=== PATIENT | female | born 1970 | race Two or more races ===

== ENCOUNTER 2016-09-16 17:51 | Emergency (ER) | payer MEDICAID ==
[~2016-09-16] VITALS: Ht 162.6 cm; Wt 112.0 kg
[~2016-09-16 17:51] MED LIST: ALBU18; AZIT250T5; FURO20TA3; GLYB5TAB8; INSLANTI; LISI-646; METO-158; OMEPRAZOLE DR 20 MG CAPSULE; PROMETHAZINE-DM SYRUP
[2016-09-16 19:29] LABS: Basophils # (auto) 0 uL; DEFINITIVE VIEW TRANSMISSION; Eosinophils # (auto) 0.2 uL; Eosinophils % (auto) 2.6 % (0.0-7.0); Hematocrit 36.4 % (36.0-46.0); Hemoglobin 11.8 g/dL (12.2-16.2); Lymphocytes # (auto) 0.5 uL; Lymphocytes % (auto) 9.1 % (10.0-50.0); Mean Corpuscular Hemoglobin 24.6 pg (28.0-32.0); Mean Corpuscular Hgb Conc. 32.5 g/dL (32.0-36.0); Mean Corpuscular Volume 75.5 fL (80.0-100.0); Mean Platelet Volume 8.9 fL (7.4-10.4); Monocytes # (auto) 0.5 uL; Monocytes % (auto) 8.8 % (0.0-12.0); Neutrophils # (auto) 4.7 uL; Neutrophils % (auto) 79.5 % (37.0-80.0); Platelet Count (auto) 272 10^3/uL (140-450); Red Cell Distribution Width 16.3 % (11.6-16.0); White Blood Cell 5.9 10^3/uL (4.4-10.8)
[2016-09-16 19:55] LABS: Albumin 2.5 g/dL (3.4-5.0); BUN/Creatinine Ratio 10.1; Bilirubin, Total 0.4 mg/dL (0.2-1.0); Magnesium 2.1 mg/dL (1.6-2.6); Potassium 3.6 mmol/L (3.5-5.1); Total Protein 6.4 g/dL (6.4-8.2)
[2016-09-17] MEDS ORDERED: SODIUM CHLORIDE 0.9% 1,000 ML IV ONE (04:15)
[2016-09-17] MEDS ORDERED: ONDANSETRON HCL 4 MG/2 ML VIAL IV ONE (04:15)
[2016-09-17] MEDS ORDERED: ONDANSETRON HCL 4 MG/2 ML VIAL ONE (04:35)
[2016-09-17 05:45] VITALS: BP 167/82
[2016-09-17] MEDS ORDERED: LOPERAMIDE HCL 2 MG CAP PO ONE (05:45)
== END 2016-09-17 06:05 | disposition home or self-care (01) ==
LOC: ER 18:05
DX: K52.9 Noninfective gastroenteritis and colitis, unspecified (principal); K21.9 Gastro-esophageal reflux disease without esophagitis; E11.9 Type 2 diabetes mellitus without complications; E78.5 Hyperlipidemia, unspecified; I10 Essential (primary) hypertension; Z91.040 Latex allergy status
CPT/HCPCS: 36415; 80053; 83735; 85025; 96361; 96374; 99284; J2405; J7030

== ENCOUNTER 2017-04-06 09:17 | Emergency (ER) | payer MEDICAID ==
[~2017-04-06] VITALS: Ht 162.6 cm; Wt 74.8 kg
[2017-04-06 09:41] VITALS: BP 145/67
== END 2017-04-06 10:27 | disposition home or self-care (01) ==
LOC: ER 09:17
DX: K13.0 Diseases of lips (principal); R51 Headache; E11.9 Type 2 diabetes mellitus without complications; I10 Essential (primary) hypertension; E78.5 Hyperlipidemia, unspecified; Z87.442 Personal history of urinary calculi; Z98.51 Tubal ligation status; Z90.89 Acquired absence of other organs; Z91.041 Radiographic dye allergy status
CPT/HCPCS: 10060

== ENCOUNTER 2017-04-22 14:18 | Emergency (ER) | payer MEDICAID ==
[~2017-04-22] VITALS: Ht 162.6 cm; Wt 115.7 kg
[2017-04-22 14:31] VITALS: BP 148/82
== END 2017-04-22 15:48 | disposition home or self-care (01) ==
LOC: ER 14:18
DX: S29.012A Strain of muscle and tendon of back wall of thorax, initial encounter (principal); E11.9 Type 2 diabetes mellitus without complications; K21.9 Gastro-esophageal reflux disease without esophagitis; E78.5 Hyperlipidemia, unspecified; I10 Essential (primary) hypertension; Z82.49 Family history of ischemic heart disease and other diseases of the circulatory system; Z87.442 Personal history of urinary calculi; Z79.4 Long term (current) use of insulin; Z91.040 Latex allergy status; X58.XXXA Exposure to other specified factors, initial encounter; Y93.89 Activity, other specified; Y92.59 Other trade areas as the place of occurrence of the external cause; Y99.8 Other external cause status

== ENCOUNTER 2017-11-29 21:49 | Inpatient (IN) | payer MEDICAID ==
[~2017-11-29] VITALS: Ht 162.6 cm; Wt 119.0 kg
[~2017-11-29 21:49] MED LIST changes: -AZIT250T5; +AZIT250T7
[2017-11-29 22:45] LABS: Basophils # (auto) 0 uL; Eosinophils # (auto) 0.1 uL; Hemoglobin 13.8 g/dL (12.2-16.2); Mean Corpuscular Hgb Conc. 32.1 g/dL (32.0-36.0); Monocytes # (auto) 0.5 uL; White Blood Cell 5.6 10^3/uL (4.4-10.8)
[2017-11-29 22:46] LABS: Basophils % (auto) 0.5 % (0.0-2.0); Eosinophils % (auto) 2.4 % (0.0-7.0); Lymphocytes # (auto) 0.7 uL; Lymphocytes % (auto) 13.1 % (10.0-50.0); Mean Corpuscular Hemoglobin 26.7 pg (28.0-32.0); Mean Corpuscular Volume 83.4 fL (80.0-100.0); Monocytes % (auto) 9.1 % (0.0-12.0); Neutrophils # (auto) 4.2 uL; Neutrophils % (auto) 74.9 % (37.0-80.0); Platelet Count (auto) 186 10^3/uL (140-450); Red Blood Cells 5.16 10^6/uL (4.0-5.20); Red Cell Distribution Width 16.8 % (11.8-14.3)
[2017-11-29 23:04] LABS: Albumin 2.8 g/dL (3.4-5.0); BUN/Creatinine Ratio 15.2; Bilirubin, Total 0.3 mg/dL (0.2-1.0); Calcium 8.4 mg/dL (8.5-10.1); Magnesium 2.1 mg/dL (1.6-2.6); Potassium 4.5 mmol/L (3.5-5.1); Total Protein 6.5 g/dL (6.4-8.2)
[2017-11-30] MEDS ORDERED: FUROSEMIDE 40 MG/4 ML VIAL IV ONE (05:30)
[2017-11-30] MEDS ORDERED: cloNIDine HCL 0.1 MG TAB ONE (06:21)
[2017-11-30] MEDS ORDERED: cloNIDine HCL 0.1 MG TAB PO ONE (06:30)
[2017-11-30] MEDS ORDERED: LORazepam 2MG/ML-1ML VIAL IV PRN (06:45)
[2017-11-30] MEDS ORDERED: DEXTROSE (50%) 50ML SYRG IV PRN (06:45)
[2017-11-30] MEDS ORDERED: NITROGLYCERIN 0.4 MG SL TAB SL PRN (06:45)
[2017-11-30] MEDS ORDERED: HYDROcodone-ACET 5/325MG TAB PO PRN (06:45)
[2017-11-30] MEDS ORDERED: MORPHINE SULFATE 8mg/ml INJ SDV IV PRN (06:45)
[2017-11-30] MEDS ORDERED: MEPERIDINE HCL (50 MG/ML) 1 ML VIAL IV ONE (06:45)
[2017-11-30] MEDS ORDERED: LABETALOL HCL 5 MG/ML ML 20ML VIAL IV PRN (06:45)
[2017-11-30] MEDS ORDERED: ACETAMINOPHEN 500 MG TAB PO PRN (06:45)
[2017-11-30] MEDS: ACCU-CHEK COMFORT CURVE STRIP VI SCH ×4 (07:07→22:04)
[2017-11-30] MEDS: InsuLIN REG 1unit/0.01ml Soln (100units/ml) SC SCH ×4 (07:09→22:00)
[2017-11-30 08:36] LABS: Alcohol, Urine < 3.0 mg/dL (0-5); Amphetamine Screen, Urine NEGATIVE (NEGATIVE); Barbiturate Scree,Urine NEGATIVE (NEGATIVE); Benzodiazephine Screen, Urine NEGATIVE (NEGATIVE); Cannabinoid Screen, Urine NEGATIVE (NEGATIVE); Cocaine Screen, Urine NEGATIVE (NEGATIVE); Opiate Scree,Urine NEGATIVE (NEGATIVE); Phencyclidine Screen, Urine NEGATIVE (NEGATIVE)
[2017-11-30 08:43] VITALS: BP 138/87
[2017-11-30 08:51] LABS: Urine Bacteria FEW /hpf (None Seen); Urine Blood 1+ /uL (Negative); Urine Mucus FEW (None Seen); Urine Specific Gravity 1.007 (1.001-1.035); Urine WBC 100 /hpf (0 - 5)
[2017-11-30] MEDS: LISINOPRIL 20 MG TAB PO SCH (10:18)
[2017-11-30] MEDS: hydrALAZINE HCL 25 MG TAB PO SCH ×2 (10:19→21:58)
[2017-11-30] MEDS: ASPirin-EC 81 mg tab PO SCH (10:19)
[2017-11-30] MEDS: CLOPIDOGREL BISULFATE 75 MG TAB PO SCH (10:20)
[2017-11-30] MEDS: CARVEDILOL 3.125 MG TAB PO SCH ×2 (10:22→21:59)
[2017-11-30 10:53] VITALS: BP 138/87
[2017-11-30] MEDS ORDERED: OXYCODONE HCL 5MG TAB PO PRN ×2 (11:00)
[2017-11-30 12:04] LABS: Protein, Urine 193.9 mg/dL (0.0-11.9)
[2017-11-30 12:37] VITALS: BP 126/69
[2017-11-30 17:00] VITALS: BP 144/70
[2017-11-30] MEDS ORDERED: FUROSEMIDE 40 MG/4 ML VIAL IV SCH (18:00)
[2017-11-30] MEDS: FUROSEMIDE 40 MG/4 ML VIAL IV SCH (18:05)
[2017-11-30] MEDS: MEPERIDINE HCL (25 MG/ML) 1ML VIAL IV PRN (20:09)
[2017-11-30 22:17] VITALS: BP 121/68
[2017-12-01] MEDS ORDERED: DIPH25CA66 PO (00:02)
[2017-12-01] MEDS ORDERED: LORA-655 PO (00:02)
[2017-12-01] MEDS ORDERED: INSUINJ18 SC (00:02)
[2017-12-01] MEDS ORDERED: FURO40TA PO (00:02)
[2017-12-01] MEDS ORDERED: CLOP75TA41 PO (00:02)
[2017-12-01] MEDS ORDERED: ALBU1AER4 IN (00:02)
[2017-12-01] MEDS ORDERED: HYDR-4795 PO (00:02)
[2017-12-01] MEDS ORDERED: POTA10TA51 PO (00:02)
[2017-12-01] MEDS ORDERED: METH500T6 PO (00:02)
[2017-12-01] MEDS ORDERED: CARV3.1240 PO (00:02)
[2017-12-01] MEDS ORDERED: GLIP-116 PO (00:02)
[2017-12-01] MEDS ORDERED: TICA90TA PO (00:02)
[2017-12-01] MEDS ORDERED: GABA300C10 PO (00:02)
[2017-12-01] MEDS ORDERED: LEVEMIR SC (00:02)
[2017-12-01] MEDS ORDERED: DOCU-94 PO (00:02)
[2017-12-01] MEDS ORDERED: ONDA4TAB5 PO (00:02)
[2017-12-01] MEDS ORDERED: NITR0.4S29 SL (00:02)
[2017-12-01] MEDS ORDERED: LISI40TA PO (00:02)
[2017-12-01] MEDS ORDERED: ASPI81TA27 PO (00:02)
[2017-12-01] MEDS: MEPERIDINE HCL (25 MG/ML) 1ML VIAL IV PRN ×2 (04:56→12:48)
[2017-12-01 05:00] VITALS: BP 119/58
[2017-12-01] MEDS: ONDANSETRON HCL 4 MG/2 ML VIAL IV PRN (05:48)
[2017-12-01] MEDS: ACCU-CHEK COMFORT CURVE STRIP VI SCH ×4 (06:46→22:23)
[2017-12-01 06:47] LABS: Basophils # (auto) 0 uL; Basophils % (auto) 0.3 % (0.0-2.0); Eosinophils # (auto) 0.2 uL; Lymphocytes # (auto) 0.8 uL; Monocytes # (auto) 0.5 uL; Nucleated Red Blood Cells % 0.1 %; Platelet Count (auto) 197 10^3/uL (140-450); White Blood Cell 6.2 10^3/uL (4.4-10.8)
[2017-12-01] MEDS: InsuLIN REG 1unit/0.01ml Soln (100units/ml) SC SCH ×4 (06:47→22:23)
[2017-12-01 06:50] LABS: Eosinophils % (auto) 3.7 % (0.0-7.0); Hemoglobin 13.6 g/dL (12.2-16.2); Lymphocytes % (auto) 13.5 % (10.0-50.0); Mean Corpuscular Hemoglobin 26.9 pg (28.0-32.0); Mean Corpuscular Hgb Conc. 32.4 g/dL (32.0-36.0); Neutrophils # (auto) 4.6 uL; Neutrophils % (auto) 74.5 % (37.0-80.0); Red Blood Cells 5.06 10^6/uL (4.0-5.20); Red Cell Distribution Width 16.6 % (11.8-14.3)
[2017-12-01] MEDS: FUROSEMIDE 40 MG/4 ML VIAL IV SCH ×2 (06:50→18:00)
[2017-12-01 07:07] LABS: BUN/Creatinine Ratio 17.4; Calcium 8.3 mg/dL (8.5-10.1); Magnesium 2.3 mg/dL (1.6-2.6); Phosphorus 4.3 mg/dL (2.5-4.90); Potassium 3.6 mmol/L (3.5-5.1)
[2017-12-01 08:09] VITALS: BP 131/75
[2017-12-01 08:15] VITALS: BP 119/58
[2017-12-01] MEDS ORDERED: ADENOSINE 104 MG in GIVE UN-DILUTED 0 ML IV STA (08:49)
[2017-12-01] MEDS: cefTRIAXone 1GM/10ml IVPUSH 10 ML IV SCH (10:28)
[2017-12-01] MEDS: ASPirin-EC 81 mg tab PO SCH (10:29)
[2017-12-01] MEDS: LISINOPRIL 20 MG TAB PO SCH (10:29)
[2017-12-01] MEDS: hydrALAZINE HCL 25 MG TAB PO SCH ×2 (10:30→22:21)
[2017-12-01] MEDS: CLOPIDOGREL BISULFATE 75 MG TAB PO SCH (10:30)
[2017-12-01] MEDS: CARVEDILOL 3.125 MG TAB PO SCH ×2 (10:30→22:21)
[2017-12-01 12:39] VITALS: BP 137/76
[2017-12-01 17:20] VITALS: BP 146/93
[2017-12-01 22:00] VITALS: BP 135/77
[2017-12-01] MEDS: POTASSIUM CHL 20 Meq TABLET PO SCH (22:22)
[2017-12-02] MEDS: ONDANSETRON HCL 4 MG/2 ML VIAL IV PRN ×2 (01:00→06:45)
[2017-12-02] MEDS: MEPERIDINE HCL (25 MG/ML) 1ML VIAL IV PRN ×2 (01:00→06:45)
[2017-12-02 05:00] VITALS: BP 144/79
[2017-12-02 05:42] LABS: Basophils # (auto) 0 uL; Basophils % (auto) 0.4 % (0.0-2.0); Eosinophils # (auto) 0.2 uL; Eosinophils % (auto) 3.4 % (0.0-7.0); Hematocrit 40.6 % (36.0-46.0); Hemoglobin 13.2 g/dL (12.2-16.2); Lymphocytes # (auto) 0.6 uL; Lymphocytes % (auto) 13.2 % (10.0-50.0); Mean Corpuscular Hemoglobin 27.1 pg (28.0-32.0); Mean Corpuscular Hgb Conc. 32.6 g/dL (32.0-36.0); Monocytes # (auto) 0.4 uL; Monocytes % (auto) 9.7 % (0.0-12.0); Neutrophils # (auto) 3.3 uL; Neutrophils % (auto) 73.3 % (37.0-80.0); Nucleated Red Blood Cells % 0.1 %; Platelet Count (auto) 181 10^3/uL (140-450); Red Blood Cells 4.89 10^6/uL (4.0-5.20); Red Cell Distribution Width 16.6 % (11.8-14.3); White Blood Cell 4.4 10^3/uL (4.4-10.8)
[2017-12-02 05:56] LABS: BUN/Creatinine Ratio 16.8; Calcium 7.6 mg/dL (8.5-10.1); Potassium 4.1 mmol/L (3.5-5.1)
[2017-12-02] MEDS: ACCU-CHEK COMFORT CURVE STRIP VI SCH ×2 (06:44→12:05)
[2017-12-02] MEDS: InsuLIN REG 1unit/0.01ml Soln (100units/ml) SC SCH ×2 (06:44→12:05)
[2017-12-02] MEDS: FUROSEMIDE 40 MG/4 ML VIAL IV SCH (06:44)
[2017-12-02 08:00] VITALS: BP 137/72
[2017-12-02] MEDS: cefTRIAXone 1GM/10ml IVPUSH 10 ML IV SCH (10:15)
[2017-12-02] MEDS: LISINOPRIL 20 MG TAB PO SCH (10:16)
[2017-12-02] MEDS: CLOPIDOGREL BISULFATE 75 MG TAB PO SCH (10:17)
[2017-12-02] MEDS: ASPirin-EC 81 mg tab PO SCH (10:17)
[2017-12-02] MEDS: CARVEDILOL 3.125 MG TAB PO SCH (10:17)
[2017-12-02] MEDS: hydrALAZINE HCL 25 MG TAB PO SCH (10:17)
[2017-12-02] MEDS: POTASSIUM CHL 20 Meq TABLET PO SCH (10:17)
[2017-12-02 11:05] VITALS: BP 137/72
[2017-12-02 12:00] VITALS: BP 143/83
[2017-12-02] MEDS ORDERED: FUROSEMIDE 40 MG/4 ML VIAL ONE (13:57)
[2017-12-02] MEDS ORDERED: INSULIN LANTUS (GLARGINE) 1 /0.01ml (100units/ml) SC SCH (22:00)
== END 2017-12-02 15:30 | disposition home or self-care (01) | DRG 194 ==
LOC: ER 21:49 → TELE 21:50 → TELE-EAST 11-30 08:43 → EAST 12-01 07:50 → TELE-EAST 12-02 02:13
PROVIDERS: ADMIT Nurse Practitioner Family; ATTEND Internal Medicine
DX: I13.0 Hypertensive heart and chronic kidney disease with heart failure and stage 1 through stage 4 chronic kidney disease, or unspecified chronic kidney disease (principal); N17.0 Acute kidney failure with tubular necrosis; N39.0 Urinary tract infection, site not specified; N18.3 Chronic kidney disease, stage 3 (moderate); N20.0 Calculus of kidney; E11.21 Type 2 diabetes mellitus with diabetic nephropathy; N83.209 Unspecified ovarian cyst, unspecified side; N26.1 Atrophy of kidney (terminal); E11.22 Type 2 diabetes mellitus with diabetic chronic kidney disease; E44.1 Mild protein-calorie malnutrition; I50.43 Acute on chronic combined systolic (congestive) and diastolic (congestive) heart failure; I25.10 Atherosclerotic heart disease of native coronary artery without angina pectoris; I42.9 Cardiomyopathy, unspecified; K21.9 Gastro-esophageal reflux disease without esophagitis; E78.5 Hyperlipidemia, unspecified; E66.01 Morbid (severe) obesity due to excess calories; E87.1 Hypo-osmolality and hyponatremia; I25.2 Old myocardial infarction; Z79.4 Long term (current) use of insulin; Z82.3 Family history of stroke; Z82.49 Family history of ischemic heart disease and other diseases of the circulatory system; Z86.73 Personal history of transient ischemic attack (TIA), and cerebral infarction without residual deficits; Z95.0 Presence of cardiac pacemaker; Z87.442 Personal history of urinary calculi; Z83.3 Family history of diabetes mellitus; Z79.899 Other long term (current) drug therapy; Z91.040 Latex allergy status; Z98.51 Tubal ligation status
CPT/HCPCS: 36415; 71045; 74176; 76856; 78707; 80048; 80053; 80307; 81001; 82150; 82570; 82962; 83036; 83690; 83735; 83880; 84100; 84156; 84300; 84484; 85025; 87081; 87086; 93005; 93306; 96374; 96375; J0153; J1815; J2405

== ENCOUNTER 2018-03-31 10:16 | Emergency (ER) | payer MEDICAID ==
[~2018-03-31] VITALS: Ht 162.6 cm; Wt 120.2 kg
[~2018-03-31 10:16] MED LIST changes: -ALBU18; +ALBU1AER4 IN; +ASPI81TA27 PO; -AZIT250T7; +CLOP75TA41 PO; +DIPH25CA66 PO; +DOCU-94 PO; -FURO20TA3; +GABA300C10 PO; +GLIP-116 PO; -GLYB5TAB8; +HYDR-4795 PO; -INSLANTI; +INSUINJ18 SC; +LEVEMIR SC; -LISI-646; +LISI40TA PO; +LORA-655 PO; +METH500T6 PO; -METO-158; +NITR0.4S29 SL; -OMEPRAZOLE DR 20 MG CAPSULE; +ONDA4TAB5 PO; +POTA10TA51 PO; -PROMETHAZINE-DM SYRUP
[2018-03-31 10:21] VITALS: BP 146/84
[2018-03-31] MEDS ORDERED: KETOROLAC TROMETH 60MG/2ML VIAL IM ONE (10:45)
== END 2018-03-31 11:33 | disposition home or self-care (01) ==
LOC: ER 10:17
DX: R51 Headache (principal); I11.0 Hypertensive heart disease with heart failure; I50.9 Heart failure, unspecified; I25.2 Old myocardial infarction; E11.9 Type 2 diabetes mellitus without complications; K21.9 Gastro-esophageal reflux disease without esophagitis; Z98.51 Tubal ligation status
CPT/HCPCS: 70450; 96372; 99284; J1885

== ENCOUNTER 2018-09-07 17:45 | Emergency (ER) | payer MEDICAID ==
[~2018-09-07] VITALS: Ht 162.6 cm; Wt 113.9 kg
[2018-09-07 18:47] VITALS: BP 169/97
== END 2018-09-07 20:35 | disposition home or self-care (01) ==
LOC: ER 18:02
DX: S43.402A Unspecified sprain of left shoulder joint, initial encounter (principal); I11.0 Hypertensive heart disease with heart failure; I50.9 Heart failure, unspecified; E11.9 Type 2 diabetes mellitus without complications; K21.9 Gastro-esophageal reflux disease without esophagitis; E78.5 Hyperlipidemia, unspecified; I25.2 Old myocardial infarction; Z87.442 Personal history of urinary calculi; Z98.51 Tubal ligation status; Z91.040 Latex allergy status; Z79.4 Long term (current) use of insulin; Z79.82 Long term (current) use of aspirin; X50.9XXA Other and unspecified overexertion or strenuous movements or postures, initial encounter; Y93.89 Activity, other specified; Y92.89 Other specified places as the place of occurrence of the external cause; Y99.8 Other external cause status
CPT/HCPCS: 29105; 73030

== ENCOUNTER 2019-09-09 22:11 | Emergency (ER) | payer MEDICAID ==
[~2019-09-09] VITALS: Ht 162.6 cm; Wt 120.2 kg
[~2019-09-09 22:11] MED LIST changes: +ASPI-404 PO; -ASPI81TA27 PO; +DOXY-286 PO; +FURO40TA4 PO; -GLIP-116 PO; +GLIP10TA9 PO; +METH500T22 PO; -METH500T6 PO; +ONDA-144 PO; -ONDA4TAB5 PO
[2019-09-09 22:23] VITALS: BP 169/99
[2019-09-10] MEDS ORDERED: HYDROcodone-ACET 5/325MG TAB PO ONE (00:45)
== END 2019-09-10 02:05 | disposition home or self-care (01) ==
LOC: ER 22:12
DX: S06.0X1A Concussion with loss of consciousness of 30 minutes or less, initial encounter (principal); S70.02XA Contusion of left hip, initial encounter; S80.02XA Contusion of left knee, initial encounter; S90.02XA Contusion of left ankle, initial encounter; I11.0 Hypertensive heart disease with heart failure; I50.9 Heart failure, unspecified; J44.9 Chronic obstructive pulmonary disease, unspecified; E11.9 Type 2 diabetes mellitus without complications; E78.5 Hyperlipidemia, unspecified; I25.2 Old myocardial infarction; X58.XXXA Exposure to other specified factors, initial encounter; Y93.89 Activity, other specified; Y92.89 Other specified places as the place of occurrence of the external cause; Y99.8 Other external cause status
CPT/HCPCS: 70450; 73502; 73562; 73610

== ENCOUNTER 2019-10-24 02:07 | Emergency (ER) | payer MEDICAID ==
[~2019-10-24] VITALS: Ht 162.6 cm; Wt 120.2 kg
[2019-10-24 03:17] LABS: Basophils # (auto) 0 10 ^3/uL (0-0.2); Basophils % (auto) 0.4 % (0.0-2.0); Eosinophils # (auto) 0.3 10 ^3/uL (0-0.8); Eosinophils % (auto) 5.9 % (0.0-7.0); Hematocrit 43.9 % (36.0-46.0); Hemoglobin 14.2 g/dL (12.2-16.2); Lymphocytes # (auto) 0.5 10 ^3/uL (0.4-5.4); Lymphocytes % (auto) 9.5 % (10.0-50.0); Mean Corpuscular Hemoglobin 28.4 pg (28.0-32.0); Mean Corpuscular Hgb Conc. 32.3 g/dL (32.0-36.0); Mean Corpuscular Volume 87.9 fL (80.0-100.0); Monocytes # (auto) 0.5 10 ^3/uL (0-1.3); Monocytes % (auto) 8.5 % (0.0-12.0); Neutrophils # (auto) 4.2 10 ^3/uL (1.6-8.6); Neutrophils % (auto) 75.7 % (37.0-80.0); Nucleated Red Blood Cells % 0.1 %; Platelet Count (auto) 186 10^3/uL (140-450); Red Blood Cells 4.99 10^6/uL (4.0-5.20); Red Cell Distribution Width 15.1 % (11.8-14.3); White Blood Cell 5.6 10^3/uL (4.4-10.8)
[2019-10-24 03:30] LABS: INR 0.96 (0.9-1.15); Partial Thromboplastin Time 28.2 sec (23.64-32.05)
[2019-10-24 03:32] LABS: Albumin 3.5 g/dL (3.4-5.0); Calcium 8.4 mg/dL (8.5-10.1); Magnesium 2.5 mg/dL (1.6-2.6); Potassium 4.1 mmol/L (3.5-5.1)
[2019-10-24 03:41] LABS: BUN/Creatinine Ratio 20.5; Bilirubin, Total 0.4 mg/dL (0.2-1.0); Total Protein 7.9 g/dL (6.4-8.2)
[2019-10-24] MEDS ORDERED: InsuLIN REG 1unit/0.01ml Soln (100units/ml) ONE (05:06)
[2019-10-24] MEDS ORDERED: SODIUM CHLORIDE 0.9% 1,000 ML IV SCH (05:11)
[2019-10-24] MEDS ORDERED: NITROGLYCERIN 0.4 MG SL TAB SL PRN (05:15)
[2019-10-24] MEDS ORDERED: HYDROcodone-ACET 5/325MG TAB PO PRN (05:15)
[2019-10-24] MEDS ORDERED: DOCUSATE SOD 100 MG CAP PO PRN (05:15)
[2019-10-24] MEDS ORDERED: HYDROcodone-ACET 7.5/325MG TAB PO PRN (05:15)
[2019-10-24] MEDS ORDERED: ONDANSETRON HCL 4 MG/2 ML VIAL IV PRN (05:15)
[2019-10-24] MEDS ORDERED: IPRATROPIUM BROM 0.5 MG/2.5ML INH SOL NEB PRN (05:15)
[2019-10-24] MEDS ORDERED: ALBUTEROL SULF 2.5 MG/0.5ML(0.5%) NEB SOLN NEB PRN (05:15)
[2019-10-24] MEDS ORDERED: ONDANSETRON ODT 4 MG TAB PO PRN (05:15)
[2019-10-24] MEDS ORDERED: ACETAMINOPHEN 325 MG TAB PO PRN (05:15)
[2019-10-24] MEDS ORDERED: MORPHINE SULFATE 4 MG/ML SYR/VIAL IV PRN (05:15)
[2019-10-24 05:58] VITALS: BP 173/89
[2019-10-24] MEDS ORDERED: POTASSIUM CHLORIDE 8 MEQ TAB PO SCH (06:00)
[2019-10-24] MEDS ORDERED: GABAPENTIN 300 MG CAP PO SCH (06:00)
[2019-10-24] MEDS ORDERED: InsuLIN REG 1unit/0.01ml Soln (100units/ml) IV ONE (06:00)
[2019-10-24 06:03] VITALS: BP 146/83
[2019-10-24] MEDS ORDERED: FUROSEMIDE 40 MG/4 ML VIAL IV SCH (10:00)
[2019-10-24] MEDS ORDERED: ASPirin-EC 81 mg tab PO SCH (10:00)
[2019-10-24] MEDS ORDERED: CLOPIDOGREL BISULFATE 75 MG TAB PO SCH (10:00)
[2019-10-24] MEDS ORDERED: PANTOPRAZOLE 40 MG/10 ML VIAL INJ IV SCH (10:00)
[2019-10-24] MEDS ORDERED: DOCUSATE SOD 100 MG CAP PO SCH (10:00)
[2019-10-24] MEDS ORDERED: LISINOPRIL 20 MG TAB PO SCH (10:00)
[2019-10-24] MEDS ORDERED: methylPREDNISolone SOD SUCC 125 MG/2 ML VL IV SCH (10:00)
[2019-10-24] MEDS ORDERED: METHOCARBAMOL 500 MG TAB PO SCH (10:00)
[2019-10-24] MEDS ORDERED: ATORVASTATIN 20 MG TAB PO SCH (18:00)
[2019-10-24] MEDS ORDERED: INSULIN DETEMIR 20 UNIT SC SCH (22:00)
[2019-10-24] MEDS ORDERED: LORazepam 0.5 MG TAB PO SCH (22:00)
== END 2019-10-24 06:22 | disposition left against medical advice (07) ==
LOC: ER 02:08
DX: R07.89 Other chest pain (principal); E11.65 Type 2 diabetes mellitus with hyperglycemia; E87.1 Hypo-osmolality and hyponatremia; R79.89 Other specified abnormal findings of blood chemistry; I11.0 Hypertensive heart disease with heart failure; I50.9 Heart failure, unspecified; J44.9 Chronic obstructive pulmonary disease, unspecified; K21.9 Gastro-esophageal reflux disease without esophagitis; E78.5 Hyperlipidemia, unspecified; I25.2 Old myocardial infarction; Z95.0 Presence of cardiac pacemaker; Z79.82 Long term (current) use of aspirin; Z79.01 Long term (current) use of anticoagulants; Z79.4 Long term (current) use of insulin; Z79.2 Long term (current) use of antibiotics; Z79.899 Other long term (current) drug therapy; Z91.040 Latex allergy status
CPT/HCPCS: 36415; 71045; 80053; 82010; 82962; 83735; 84484; 85025; 85610; 85730; 93005; 96374; 99285; J1815; J7030

== ENCOUNTER 2019-12-15 21:31 | Emergency (ER) | payer MEDICAID ==
[~2019-12-15] VITALS: Ht 162.6 cm; Wt 117.9 kg
[2019-12-15 22:30] VITALS: BP 162/78
[2019-12-16] MEDS ORDERED: HYDROcodone-ACET 5/325MG TAB PO ONE (00:45)
== END 2019-12-16 02:23 | disposition home or self-care (01) ==
LOC: ER 21:31
DX: S86.911A Strain of unspecified muscle(s) and tendon(s) at lower leg level, right leg, initial encounter (principal); S86.912A Strain of unspecified muscle(s) and tendon(s) at lower leg level, left leg, initial encounter; E11.40 Type 2 diabetes mellitus with diabetic neuropathy, unspecified; I11.0 Hypertensive heart disease with heart failure; I50.9 Heart failure, unspecified; J44.9 Chronic obstructive pulmonary disease, unspecified; K21.9 Gastro-esophageal reflux disease without esophagitis; E78.5 Hyperlipidemia, unspecified; I25.2 Old myocardial infarction; Z91.040 Latex allergy status; W19.XXXA Unspecified fall, initial encounter; Y93.89 Activity, other specified; Y92.89 Other specified places as the place of occurrence of the external cause; Y99.8 Other external cause status
CPT/HCPCS: 73120; 73562

== ENCOUNTER 2020-04-29 05:04 | Inpatient (IN) | payer MEDICAID ==
[~2020-04-29] VITALS: Ht 162.6 cm; Wt 133.0 kg
[~2020-04-29 05:04] MED LIST changes: -ASPI-404 PO; +ASPI-543 PO; -LISI40TA PO; +LISI40TA11 PO
[2020-04-29 07:10] LABS: Basophils # (auto) 0 10 ^3/uL (0-0.2); Basophils % (auto) 0.4 % (0.0-2.0); Eosinophils # (auto) 0 10 ^3/uL (0-0.8); Eosinophils % (auto) 0.2 % (0.0-7.0); Hematocrit 37.6 % (36.0-46.0); Lymphocytes # (auto) 0.4 10 ^3/uL (0.4-5.4); Lymphocytes % (auto) 5.1 % (10.0-50.0); Mean Corpuscular Hgb Conc. 31.8 g/dL (32.0-36.0); Mean Corpuscular Volume 88.1 fL (80.0-100.0); Monocytes # (auto) 0.3 10 ^3/uL (0-1.3); Monocytes % (auto) 3.1 % (0.0-12.0); Neutrophils # (auto) 7.8 10 ^3/uL (1.6-8.6); Neutrophils % (auto) 91.2 % (37.0-80.0); Nucleated Red Blood Cells % 0.2 %; Platelet Count (auto) 242 10^3/uL (140-450); Red Blood Cells 4.27 10^6/uL (4.0-5.20); Red Cell Distribution Width 18.1 % (11.8-14.3); White Blood Cell 8.6 10^3/uL (4.4-10.8)
[2020-04-29] MEDS ORDERED: SODIUM CHLORIDE 0.9% 1,000 ML IV ONE (07:15)
[2020-04-29] MEDS ORDERED: InsuLIN REG 1unit/0.01ml Soln (100units/ml) IV ONE (07:15)
[2020-04-29 07:39] LABS: BUN/Creatinine Ratio 26.4; Magnesium 2.6 mg/dL (1.6-2.6); Potassium 3.8 mmol/L (3.5-5.1)
[2020-04-29 07:45] LABS: Bilirubin, Total 1.6 mg/dL (0.2-1.0); Total Protein 6.8 g/dL (6.4-8.2)
[2020-04-29] MEDS ORDERED: ONDANSETRON HCL 4 MG/2 ML VIAL IV ONE (09:00)
[2020-04-29] MEDS ORDERED: MORPHINE SULFATE 4 MG/ML SYR/VIAL IV ONE (09:00)
[2020-04-29 14:22] LABS: Urine Bacteria MANY /hpf (None Seen); Urine Blood Negative /uL (Negative); Urine Mucus FEW (None Seen); Urine Specific Gravity 1.013 (1.001-1.035); Urine WBC 23 /hpf (0 - 5); Urine WBC Clumps PRESENT /hpf (None Seen)
[2020-04-29] MEDS ORDERED: DEXTROSE (50%) 50ML SYRG IV PRN (15:00)
[2020-04-29] MEDS: cefTRIAXone 1GM/50ML D5W 50 ML IV SCH ×2 (15:50→22:37)
[2020-04-29 16:30] LABS: BUN/Creatinine Ratio 27.8; Calcium 8.9 mg/dL (8.5-10.1); Potassium 3.8 mmol/L (3.5-5.1)
[2020-04-29] MEDS ORDERED: METOCLOPRAMIDE HCL 5MG/ml INJ 2ml VIAL IV ONE (17:00)
[2020-04-29 17:39] VITALS: BP 151/67
--- NOTE | 2020-04-29 17:40 | NUR ---
Telemetry admit from ER: INNALILIANA I admitted to Telemetry unit after SBAR received. Patient oriented to ANURAG MAYFIELD, RN primary RN, unit, room, bed, and unit policies regarding patient care and visiting hours. Patient now on continuous telemetry monitoring, tele box # 79 and telemetry reading on arrival to unit is HR 78. Patient placed on bedside oxygen 3 LPM, weighed by bedscale and encouraged to call if they need something. All questions and concerns addressed, patient verbalized understanding.
[2020-04-29] MEDS: ACCU-CHEK COMFORT CURVE STRIP VI SCH ×2 (17:57→22:37)
[2020-04-29] MEDS: FUROSEMIDE 40 MG/4 ML VIAL IV SCH (17:58)
--- NOTE | 2020-04-29 18:10 | NUR ---
[facility]SA SWAB COLLECTED AND SENT
[2020-04-29] MEDS: InsuLIN REG 1unit/0.01ml Soln (100units/ml) SC SCH ×2 (18:22→22:38)
--- NOTE | 2020-04-29 18:23 | NUR ---
PAGED HOSPITALIST AT THIS TIME. PATIENT STATES PAIN "ABOVE 10/10." AWAITING CALL BACK.
--- NOTE | 2020-04-29 18:25 | NUR ---
SPOKE WITH DR. TURNER. PER "CALL DR. CARVALHO." CALLED DR. CARVALHO EXCHANGE AT THIS TIME.
--- NOTE | 2020-04-29 18:29 | NUR ---
RECEIVED CALL FROM DR. Padmini CARVALHO AT THIS TIME. NEW ORDERS RECEIVED, READ BACK AND VERIFIED.
[2020-04-29] MEDS ORDERED: HYDROcodone-ACET 5/325MG TAB PO PRN (18:30)
[2020-04-29] MEDS: HYDROmorphone HCL 2 MG/ML VL IV PRN ×2 (18:49→22:37)
--- NOTE | 2020-04-29 18:50 | NUR ---
CLOSING NOTE: PATIENT SITTING ON EDGE OF BED, STATES PAIN "10, Addendum: 04/29/20 at 1850 by ANRUAG MAYFIELD RN RN "03/31". MEDICATION GIVEN
--- NOTE | 2020-04-29 19:40 | NUR ---
Opening Shift Note Assumed care of patient, awake and alert. No S/S of distress/SOB or pain. Updated on POC and to call for assist PRN, patient verbalized understanding. Bed in lowest position, call light within reach, will continue to monitor for changes Q1hr and PRN.
[2020-04-29 20:00] VITALS: BP 132/99
[2020-04-29 22:00] VITALS: BP 132/99
[2020-04-29] MEDS: PANTOPRAZOLE 40 MG/10 ML VIAL INJ IV SCH (22:36)
[2020-04-30 05:00] VITALS: BP 142/82
[2020-04-30] MEDS: FUROSEMIDE 40 MG/4 ML VIAL IV SCH ×2 (06:19→17:39)
[2020-04-30] MEDS: InsuLIN REG 1unit/0.01ml Soln (100units/ml) SC SCH ×4 (06:20→22:59)
[2020-04-30] MEDS: ACCU-CHEK COMFORT CURVE STRIP VI SCH ×4 (06:20→22:58)
[2020-04-30 06:58] LABS: Calcium 8.8 mg/dL (8.5-10.1); Potassium 3.5 mmol/L (3.5-5.1)
[2020-04-30 07:00] LABS: BUN/Creatinine Ratio 27.5
--- NOTE | 2020-04-30 07:15 | NUR ---
Opening Shift Note: Assumed care of patient, awake and alert. No S/S of distress/SOB or pain. Bed in lowest locked position, side rails up x 2, call light within reach. Patient instructed on POC and to call for assist PRN, will continue to monitor for changes Q1hr and PRN.
[2020-04-30 09:24] VITALS: BP 146/83
[2020-04-30] MEDS: cefTRIAXone 1GM/50ML D5W 50 ML IV SCH ×2 (10:23→22:58)
[2020-04-30] MEDS: PANTOPRAZOLE 40 MG/10 ML VIAL INJ IV SCH ×2 (10:23→22:58)
[2020-04-30] MEDS: HYDROmorphone HCL 2 MG/ML VL IV PRN ×3 (12:06→22:59)
[2020-04-30 13:01] VITALS: BP 155/99
[2020-04-30 16:49] VITALS: BP 155/83
--- NOTE | 2020-04-30 19:14 | NUR ---
CLOSING NOTE: Patient resting in bed. no S/S of distress. care endorsed.
[2020-04-30 22:00] VITALS: BP 148/83
--- NOTE | 2020-05-01 00:15 | NUR ---
Patient complained of vomiting, noted no PRN med at this time. Will page hospitalist
--- NOTE | 2020-05-01 00:30 | NUR ---
Spoke to hospitalist King and updated on patient's status and reason for call. Received new order at this time and read back
[2020-05-01] MEDS: ONDANSETRON HCL 4 MG/2 ML VIAL IV PRN ×4 (01:18→22:09)
--- NOTE | 2020-05-01 01:45 | NUR ---
Dr. Ortega Aaron at bedside. New orders received
[2020-05-01 05:25] VITALS: BP 164/94
[2020-05-01] MEDS: InsuLIN REG 1unit/0.01ml Soln (100units/ml) SC SCH ×4 (06:14→22:00)
[2020-05-01] MEDS: ACCU-CHEK COMFORT CURVE STRIP VI SCH ×4 (06:14→22:00)
[2020-05-01] MEDS: HYDROmorphone HCL 2 MG/ML VL IV PRN ×5 (06:14→23:38)
[2020-05-01 07:52] LABS: Potassium 3.5 mmol/L (3.5-5.1)
[2020-05-01 08:00] LABS: Albumin 3.5 g/dL (3.4-5.0); BUN/Creatinine Ratio 23.4; Bilirubin, Total 0.9 mg/dL (0.2-1.0); Calcium 8.9 mg/dL (8.5-10.1); Total Protein 6.1 g/dL (6.4-8.2)
--- NOTE | 2020-05-01 08:15 | NUR ---
Patient off unit for HIDA scan
[2020-05-01 08:19] LABS: INR 1.33 (0.9-1.15); Partial Thromboplastin Time 26.1 sec (23.0-31.2)
--- NOTE | 2020-05-01 08:46 | NUR ---
Patient back in room, c/o nausea and abdominal pain 12/29. Will medicate with PRN as per order.
[2020-05-01] MEDS: PANTOPRAZOLE 40 MG/10 ML VIAL INJ IV SCH ×2 (09:13→22:22)
[2020-05-01] MEDS: cefTRIAXone 1GM/50ML D5W 50 ML IV SCH ×2 (09:13→22:22)
--- NOTE | 2020-05-01 09:24 | NUR ---
[employer] Call to [employer] at to have cardiac device interrogated, per entry level account representative Vanessa, all information needed obtained and entry level account representative will be in for interrogation before noon today.
[2020-05-01 09:40] VITALS: BP 145/113
--- NOTE | 2020-05-01 11:04 | NUR ---
Per NUCLEAR MED patient refused to finish HIDA scan at 0830, patient has since then been medicated and will check with patient if okay to finish scan now.
--- NOTE | 2020-05-01 11:08 | NUR ---
Patient continues to refuse to finish HIDA scan, states " I'm starting to feel sick again and I wanna rest." NUC MED notified
--- NOTE | 2020-05-01 12:32 | NUR ---
[employer] REP AT BED SIDE INTERROGATION STATUS IN HARD CHART
[2020-05-01 13:29] VITALS: BP 153/90
--- NOTE | 2020-05-01 14:42 | NUR ---
Patient off unit to finish HIDA scan
[2020-05-01 16:32] VITALS: BP 122/96
--- NOTE | 2020-05-01 19:30 | NUR ---
Opening Shift Note Assumed care of patient, sleeping. No S/S of distress/SOB or pain. RN will continue to monitor for changes Q1hr and PRN. Bed low with HOB in Pereyra's position. Nurse call light up behind pillow.
[2020-05-01 22:00] VITALS: BP 157/91
--- NOTE | 2020-05-01 23:10 | NUR ---
Pt called RN into room to report PIV leaking; entire abx infused prev. Saline lock dc'd in entirety and pressure dressing in place. Pt yudith well.
--- NOTE | 2020-05-01 23:54 | NUR ---
After this RN reassessed zofran and dilaudid, pt stated that the nausea "I think is trying to creep up again." Discussed deep slow breathing to control nausea. Pt voiced understanding. Now as RN entered room, pt grunting and taking large, but not slow controlled, breaths. RN informed pt that her anti-nausea is every 6 hours and she needs to use the controlled breathing. Pt immediately stopped groaning/grunting.
--- NOTE | 2020-05-02 01:20 | NUR ---
Rebeka, RN, CN, restarted pt's saline lock on first attempt after this RN attempted twice without success. Pt yudith well. Saline lock 22g. to L ant forearm.
[2020-05-02 05:00] VITALS: BP 146/69
[2020-05-02 06:33] LABS: Potassium 3.1 mmol/L (3.5-5.1)
[2020-05-02 06:43] LABS: Calcium 8.9 mg/dL (8.5-10.1)
[2020-05-02] MEDS: ACCU-CHEK COMFORT CURVE STRIP VI SCH ×4 (07:10→22:00)
[2020-05-02] MEDS: InsuLIN REG 1unit/0.01ml Soln (100units/ml) SC SCH ×4 (07:12→22:00)
--- NOTE | 2020-05-02 07:30 | NUR ---
Opening Shift Note Assumed care of patient, awake and alert. No S/S of distress/SOB but complains of pain 03/31, stated shes been calling since 6am with no relief, will medicate as ordered. Instructed on POC and to call for assist PRN, will continue to monitor for changes Q1hr and PRN. Bed in low and locked position, rails up x2, no-slip socks on. Patient stating she wishes to leave this hospital and go to [facility] ([facility] instead, that she has been waiting too long to be treated and is frustrated. listen attentively and provided comfort measures, will notify .
[2020-05-02] MEDS: ONDANSETRON HCL 4 MG/2 ML VIAL IV PRN ×4 (08:06→23:16)
[2020-05-02] MEDS: HYDROmorphone HCL 2 MG/ML VL IV PRN ×6 (08:12→23:17)
[2020-05-02 09:00] VITALS: BP 153/65
--- NOTE | 2020-05-02 09:00 | NUR ---
MRCP CANCELLED UNABLE TO PERFORM FOR THIS PATIENT DUE TO PACEMAKER
--- NOTE | 2020-05-02 09:25 | NUR ---
DR BEEBE AT BEDSIDE WILL NOT PROCEED WITH SUGERY AT THIS TIME, PATIENT HAS A NEGATIVE HIDA AND EXTENSIVE CARDIAC HISTORY
[2020-05-02] MEDS: PANTOPRAZOLE 40 MG/10 ML VIAL INJ IV SCH ×2 (11:03→22:00)
--- NOTE | 2020-05-02 11:27 | NUR ---
PAGE TO Padmini CARVALHO TO NOTIFY ON CANCELLED MRCP AND DR BEEBE ROUNDING AND NO SURGERY. NO NEW ORDERS AT THIS TIME.
[2020-05-02 13:00] VITALS: BP 144/89
--- NOTE | 2020-05-02 16:56 | NUR ---
Assessment Patient is a 50-year-old female, who is alert and oriented. Patient cognitive abilities are intact. Patient states that she can do all ADLs and ambulates independently with assistance. Patient has history with diabetes. Patient states that she lives with mother (Amena [phone]), her mother will provide transportation post discharge. Patient states that she has an Advance Directive, she will provide a copy to [facility]. Discharge planning: Patient has diabetic supplies and will resume diabetic care at home. Patient will return home. Post discharge needs are yet to be determine at this moment. Addendum: 05/02/20 at 1657 by HITESH MEIER Amended: Links added.
[2020-05-02 17:00] VITALS: BP 155/89
--- NOTE | 2020-05-02 19:30 | NUR ---
Opening Shift Note Assumed care of patient, sleeping soundly. No S/S of distress/SOB or pain. RN will continue to monitor for changes Q1hr and PRN. Pt's bed in low position. Nurse call light is within her reach.
[2020-05-02 22:00] VITALS: BP 157/89
[2020-05-03] MEDS: ONDANSETRON HCL 4 MG/2 ML VIAL IV PRN ×2 (03:24→10:52)
[2020-05-03] MEDS: HYDROmorphone HCL 2 MG/ML VL IV PRN ×3 (03:24→10:52)
[2020-05-03 05:00] VITALS: BP 112/55
[2020-05-03 05:54] LABS: Basophils # (auto) 0 10 ^3/uL (0-0.2); Basophils % (auto) 0.7 % (0.0-2.0); Eosinophils # (auto) 0.1 10 ^3/uL (0-0.8); Eosinophils % (auto) 1.7 % (0.0-7.0); Hematocrit 36.6 % (36.0-46.0); Hemoglobin 11.6 g/dL (12.2-16.2); Lymphocytes # (auto) 0.7 10 ^3/uL (0.4-5.4); Lymphocytes % (auto) 11.3 % (10.0-50.0); Mean Corpuscular Hgb Conc. 31.8 g/dL (32.0-36.0); Monocytes # (auto) 0.5 10 ^3/uL (0-1.3); Monocytes % (auto) 9.1 % (0.0-12.0); Neutrophils # (auto) 4.5 10 ^3/uL (1.6-8.6); Neutrophils % (auto) 77.2 % (37.0-80.0); Nucleated Red Blood Cells % 0.1 %; Platelet Count (auto) 201 10^3/uL (140-450); Red Blood Cells 4.16 10^6/uL (4.0-5.20); Red Cell Distribution Width 18.2 % (11.8-14.3); White Blood Cell 5.8 10^3/uL (4.4-10.8)
[2020-05-03 06:16] LABS: Potassium 3.1 mmol/L (3.5-5.1)
[2020-05-03 06:35] LABS: Albumin 3.2 g/dL (3.4-5.0); BUN/Creatinine Ratio 18.2; Bilirubin, Total 1.1 mg/dL (0.2-1.0); Calcium 8.6 mg/dL (8.5-10.1); Total Protein 5.7 g/dL (6.4-8.2)
[2020-05-03] MEDS: ACCU-CHEK COMFORT CURVE STRIP VI SCH ×2 (06:35→11:30)
[2020-05-03] MEDS: InsuLIN REG 1unit/0.01ml Soln (100units/ml) SC SCH ×2 (06:36→12:07)
--- NOTE | 2020-05-03 07:30 | NUR ---
Opening Shift Note Assumed care of patient, asleep. No S/S of distress/SOB or pain. Patient will be monitored for changes Q1hr and PRN. Bed is locked and in lowest position. Call light within reach.
[2020-05-03 08:48] VITALS: BP 130/57
[2020-05-03] MEDS: PANTOPRAZOLE 40 MG/10 ML VIAL INJ IV SCH (09:21)
--- NOTE | 2020-05-03 12:11 | NUR ---
Nutrition Assessment Est energy needs [id number] kcal (11-14 kcal/kg BW 133kg) Est protein needs 55-71g (1-1.3g/kg BW 55kg) Will monitor and reassess prn. Addendum: 05/03/20 at [address] Amended: Links added.
--- NOTE | 2020-05-03 12:50 | NUR ---
AMA PATIENT STATED SHE WOULD LIKE TO SIGN AMA DUE TO DR. CARVALHO WAITING FOR HER AT [facility]. PATIENT STATED DR. CARVALHO TOLD HER TO GO TO [facility] AND HE WILL SEE HER SOON SHE GETS THERE. PATIENT EXPLAINED THE RISK OF LEAVING AMA, PATIENT VERBALIZED UNDERSTANDING. PATIENT IS AOX4, DENIES SOB OR CHEST PAIN, IS C/O ABDOMINAL PAIN. PATIENT WILL AWAIT JAVA SDET FROM MOTHER. TELEMONITOR REMOVED AND SENT TO ICU HEART LAB. IV removal IV DC'd with clean sterile technique, catheter fully intact. Pressure dressing applied to site. Patient tolerated well.
--- NOTE | 2020-05-03 13:08 | NUR ---
PT REFUSED 1300 VITALSRAMO RN MADE AWARE.
--- NOTE | 2020-05-03 13:45 | NUR ---
PATIENT LEFT AMA AND WAS PICKED UP BY MOTHER. INCIDENT REPORT MADE FOR AMA.
== END 2020-05-03 13:45 | disposition left against medical advice (07) | DRG 251 ==
LOC: ER 05:04 → TELE 14:55 → TELE-WESTW 17:38
PROVIDERS: ADMIT Psychiatry & Neurology Neurology; ATTEND Psychiatry & Neurology Neurology
DX: R10.9 Unspecified abdominal pain (principal); E10.10 Type 1 diabetes mellitus with ketoacidosis without coma; N17.9 Acute kidney failure, unspecified; K80.10 Calculus of gallbladder with chronic cholecystitis without obstruction; K72.90 Hepatic failure, unspecified without coma; J44.9 Chronic obstructive pulmonary disease, unspecified; E78.5 Hyperlipidemia, unspecified; I11.0 Hypertensive heart disease with heart failure; I25.10 Atherosclerotic heart disease of native coronary artery without angina pectoris; I50.9 Heart failure, unspecified; I31.3 Pericardial effusion (noninflammatory); D64.9 Anemia, unspecified; I42.0 Dilated cardiomyopathy; E66.01 Morbid (severe) obesity due to excess calories; N39.0 Urinary tract infection, site not specified; K21.9 Gastro-esophageal reflux disease without esophagitis; Z68.43 Body mass index [BMI] 50.0-59.9, adult; Z91.040 Latex allergy status; I25.2 Old myocardial infarction; Z79.02 Long term (current) use of antithrombotics/antiplatelets; Z79.4 Long term (current) use of insulin; Z79.899 Other long term (current) drug therapy; Z82.49 Family history of ischemic heart disease and other diseases of the circulatory system; Z83.3 Family history of diabetes mellitus; Z87.442 Personal history of urinary calculi
CPT/HCPCS: 36415; 71045; 74176; 76700; 78226; 80048; 80053; 81001; 82010; 82150; 82962; 83690; 83735; 84484; 85025; 85610; 85730; 86850; 86900; 86901; 87081; 87086; 93306; C9113; G0378; J0696; J1815; J2405

== ENCOUNTER 2020-09-27 10:58 | Emergency (ER) | payer MEDICAID ==
[~2020-09-27] VITALS: Ht 162.6 cm; Wt 116.1 kg
[~2020-09-27 10:58] MED LIST changes: -CLOP75TA41 PO; +CLOP75TA70 PO
[2020-09-27 11:17] VITALS: BP 145/61
[2020-09-27] MEDS ORDERED: LIDOCAINE 1% HCL (LOCAL ANESTH.) INJ 20ML MDV IJ ONE (11:45)
== END 2020-09-27 12:27 | disposition home or self-care (01) ==
LOC: ER 10:58
DX: L02.415 Cutaneous abscess of right lower limb (principal); I11.0 Hypertensive heart disease with heart failure; I50.9 Heart failure, unspecified; J44.9 Chronic obstructive pulmonary disease, unspecified; K21.9 Gastro-esophageal reflux disease without esophagitis; E78.5 Hyperlipidemia, unspecified; I25.2 Old myocardial infarction; Z87.442 Personal history of urinary calculi; Z98.51 Tubal ligation status
CPT/HCPCS: 10060

== ENCOUNTER 2020-09-29 12:16 | Emergency (ER) | payer MEDICAID ==
[~2020-09-29] VITALS: Ht 162.6 cm; Wt 131.1 kg
[2020-09-29 12:20] VITALS: BP 130/70
== END 2020-09-29 14:32 | disposition home or self-care (01) ==
LOC: ER 12:16
DX: L02.415 Cutaneous abscess of right lower limb (principal); I11.0 Hypertensive heart disease with heart failure; I50.9 Heart failure, unspecified; J44.9 Chronic obstructive pulmonary disease, unspecified; E11.9 Type 2 diabetes mellitus without complications; K21.9 Gastro-esophageal reflux disease without esophagitis; I25.2 Old myocardial infarction; Z98.51 Tubal ligation status; Z48.01 Encounter for change or removal of surgical wound dressing

== ENCOUNTER 2020-11-24 10:42 | Emergency (ER) | payer MEDICAID ==
[~2020-11-24] VITALS: Ht 162.6 cm; Wt 115.7 kg
[2020-11-24 11:44] LABS: Basophils # (auto) 0.1 10 ^3/uL (0-0.2); Basophils % (auto) 0.8 % (0.0-2.0); Eosinophils # (auto) 0.5 10 ^3/uL (0-0.8); Eosinophils % (auto) 5.9 % (0.0-7.0); Hematocrit 38.7 % (36.0-46.0); Hemoglobin 12.8 g/dL (12.2-16.2); Lymphocytes # (auto) 0.8 10 ^3/uL (0.4-5.4); Mean Corpuscular Hemoglobin 28.4 pg (28.0-32.0); Mean Corpuscular Hgb Conc. 33.1 g/dL (32.0-36.0); Mean Corpuscular Volume 85.8 fL (80.0-100.0); Monocytes # (auto) 0.7 10 ^3/uL (0-1.3); Monocytes % (auto) 9.2 % (0.0-12.0); Neutrophils # (auto) 5.7 10 ^3/uL (1.6-8.6); Neutrophils % (auto) 74.1 % (37.0-80.0); Nucleated Red Blood Cells % 0.1 %; Red Blood Cells 4.51 10^6/uL (4.0-5.20); Red Cell Distribution Width 18.7 % (11.8-14.3); White Blood Cell 7.6 10^3/uL (4.4-10.8)
[2020-11-24 11:56] LABS: Albumin 3.3 g/dL (3.4-5.0); Calcium 8.9 mg/dL (8.5-10.1); Potassium 4.4 mmol/L (3.5-5.1)
[2020-11-24 12:04] LABS: BUN/Creatinine Ratio 17.6; Bilirubin, Total 0.4 mg/dL (0.2-1.0)
[2020-11-24] MEDS ORDERED: SODIUM CHLORIDE 0.9% 1,000 ML IV ONE (12:15)
[2020-11-24] MEDS ORDERED: SODIUM CHLORIDE 0.9% 1,000 ML IVB ONE (12:15)
[2020-11-24 14:58] LABS: Urine Bacteria NONE SEEN /hpf (None Seen); Urine Blood Negative /uL (Negative); Urine Hyaline Cast FEW /lpf (0 - 2); Urine Specific Gravity 1.015 (1.001-1.035); Urine WBC 2 /hpf (0 - 5)
[2020-11-24 16:37] LABS: INR 1.03 (0.9-1.15)
[2020-11-24 16:46] VITALS: BP 121/65
== END 2020-11-24 17:41 | disposition home or self-care (01) ==
LOC: EDBD 10:42 → ER 10:42
DX: R53.1 Weakness (principal); R25.2 Cramp and spasm; I25.10 Atherosclerotic heart disease of native coronary artery without angina pectoris; E11.21 Type 2 diabetes mellitus with diabetic nephropathy; R09.89 Other specified symptoms and signs involving the circulatory and respiratory systems; E46 Unspecified protein-calorie malnutrition; I11.0 Hypertensive heart disease with heart failure; I50.9 Heart failure, unspecified; J44.9 Chronic obstructive pulmonary disease, unspecified; K21.9 Gastro-esophageal reflux disease without esophagitis; I25.2 Old myocardial infarction; E78.5 Hyperlipidemia, unspecified; Z95.0 Presence of cardiac pacemaker; Z68.41 Body mass index [BMI] 40.0-44.9, adult; Z79.4 Long term (current) use of insulin; Z79.82 Long term (current) use of aspirin; Z79.899 Other long term (current) drug therapy; Z79.01 Long term (current) use of anticoagulants; Z79.2 Long term (current) use of antibiotics; Z91.040 Latex allergy status; Z91.048 Other nonmedicinal substance allergy status
CPT/HCPCS: 36415; 71046; 80053; 81001; 83735; 83880; 84443; 84484; 85025; 85610; 93005; 96360; 96361; 99285; J7030

== ENCOUNTER 2021-04-05 17:17 | Emergency (ER) | payer MEDICAID ==
[~2021-04-05] VITALS: Ht 162.6 cm; Wt 116.6 kg
[2021-04-05 20:30] VITALS: BP 152/86
== END 2021-04-05 20:38 | disposition home or self-care (01) ==
LOC: ER 17:17
DX: J20.9 Acute bronchitis, unspecified (principal); R42 Dizziness and giddiness; I11.0 Hypertensive heart disease with heart failure; I50.9 Heart failure, unspecified; I25.2 Old myocardial infarction; J44.9 Chronic obstructive pulmonary disease, unspecified; E11.9 Type 2 diabetes mellitus without complications; E78.5 Hyperlipidemia, unspecified; K21.9 Gastro-esophageal reflux disease without esophagitis; Z86.2 Personal history of diseases of the blood and blood-forming organs and certain disorders involving the immune mechanism; Z95.0 Presence of cardiac pacemaker; Z79.82 Long term (current) use of aspirin; Z79.4 Long term (current) use of insulin; Z79.01 Long term (current) use of anticoagulants; Z79.2 Long term (current) use of antibiotics; Z79.899 Other long term (current) drug therapy; Z91.040 Latex allergy status; Z91.048 Other nonmedicinal substance allergy status; Z20.822 Contact with and (suspected) exposure to COVID-19
CPT/HCPCS: 36415; 71045; 87426

== ENCOUNTER 2021-05-16 19:20 | Inpatient (IN) | payer MEDICAID ==
[~2021-05-16] VITALS: Ht 167.6 cm; Wt 124.6 kg
[2021-05-16] MEDS ORDERED: SODIUM CHLORIDE 0.9% 1,000 ML IV ONE (19:45)
[2021-05-16] MEDS ORDERED: ACETAMINOPHEN 325 MG TAB PO ONE (20:00)
[2021-05-16 22:23] LABS: Basophils # (auto) 0 10 ^3/uL (0-0.2); Basophils % (auto) 0.4 % (0.0-2.0); Eosinophils # (auto) 0.2 10 ^3/uL (0-0.8); Eosinophils % (auto) 1.7 % (0.0-7.0); Hematocrit 39.5 % (36.0-46.0); Hemoglobin 12.5 g/dL (12.2-16.2); Lymphocytes # (auto) 0.5 10 ^3/uL (0.4-5.4); Lymphocytes % (auto) 5.9 % (10.0-50.0); Mean Corpuscular Hgb Conc. 31.6 g/dL (32.0-36.0); Mean Corpuscular Volume 88.7 fL (80.0-100.0); Monocytes # (auto) 0.5 10 ^3/uL (0-1.3); Monocytes % (auto) 5.3 % (0.0-12.0); Neutrophils # (auto) 7.9 10 ^3/uL (1.6-8.6); Neutrophils % (auto) 86.7 % (37.0-80.0); Red Blood Cells 4.46 10^6/uL (4.0-5.20); Red Cell Distribution Width 16.6 % (11.8-14.3); White Blood Cell 9.1 10^3/uL (4.4-10.8)
[2021-05-16 22:39] LABS: Lactic Acid w/Reflex 2.1 mmol/L (0.4-2.0)
[2021-05-16 22:41] LABS: Albumin 2.9 g/dL (3.4-5.0); Calcium 8.3 mg/dL (8.5-10.1); Magnesium 2.4 mg/dL (1.6-2.6); Potassium 4.6 mmol/L (3.5-5.1)
[2021-05-16 22:50] LABS: Bilirubin, Total 0.5 mg/dL (0.2-1.0)
[2021-05-17] VITALS (7 sets, daily range): BP systolic 100–147; BP diastolic 49–78
[2021-05-17] MEDS ORDERED: SODIUM CHLORIDE 0.9% 500 ML IV ONE
[2021-05-17] MEDS ORDERED: InsuLIN REG 1unit/0.01ml Soln (100units/ml) SC ONE
[2021-05-17] MEDS ORDERED: HEPARIN DRIP/D5W 100UNITS/ML 250 ML IV SCH (03:00)
[2021-05-17] MEDS ORDERED: ASPirin 325 MG TAB PO ONE (03:00)
[2021-05-17] MEDS ORDERED: HEPARIN SODIUM (PORCINE) 5000 UNITS/ML 1ML VIAL IV ONE (03:00)
[2021-05-17] MEDS ORDERED: MORPHINE SULFATE 4 MG/ML SYR/VIAL IV ONE (03:15)
[2021-05-17 04:26] LABS: INR 1.02 (0.9-1.15); Partial Thromboplastin Time 25.9 sec (23.6-33.0)
[2021-05-17] MEDS ORDERED: NITROGLYCERIN 0.4 MG SL TAB SL PRN (04:45)
[2021-05-17] MEDS ORDERED: MORPHINE SULFATE INJECTION 2 MG/ML SYRG IV PRN (04:45)
[2021-05-17] MEDS ORDERED: DOCUSATE SOD 100 MG CAP PO PRN (04:45)
[2021-05-17] MEDS ORDERED: SODIUM CHLORIDE 0.9% 1,000 ML IV SCH (04:45)
[2021-05-17] MEDS ORDERED: DEXTROSE (50%) 50ML SYRG IV PRN (04:45)
[2021-05-17] MEDS ORDERED: ONDANSETRON HCL 4 MG/2 ML VIAL IV PRN (04:45)
[2021-05-17] MEDS ORDERED: ACETAMINOPHEN 325 MG TAB PO PRN (04:45)
[2021-05-17] MEDS: INSULIN LANTUS (GLARGINE) 1 /0.01ml (100units/ml) SC SCH ×2 (06:32→22:00)
[2021-05-17] MEDS: InsuLIN REG 1unit/0.01ml Soln (100units/ml) SC SCH ×4 (08:52→20:00)
[2021-05-17] MEDS: ACCU-CHEK COMFORT CURVE STRIP VI SCH ×4 (08:53→20:00)
[2021-05-17] MEDS: MORPHINE SULFATE 4 MG/ML SYR/VIAL IV PRN ×2 (09:01→17:48)
[2021-05-17 09:12] LABS: Basophils # (auto) 0 10 ^3/uL (0-0.2); Basophils % (auto) 0.5 % (0.0-2.0); Eosinophils # (auto) 0.3 10 ^3/uL (0-0.8); Eosinophils % (auto) 5.2 % (0.0-7.0); Hematocrit 37.2 % (36.0-46.0); Hemoglobin 12.2 g/dL (12.2-16.2); Lymphocytes # (auto) 0.9 10 ^3/uL (0.4-5.4); Lymphocytes % (auto) 13.8 % (10.0-50.0); Mean Corpuscular Hemoglobin 28.2 pg (28.0-32.0); Mean Corpuscular Hgb Conc. 32.8 g/dL (32.0-36.0); Mean Corpuscular Volume 85.8 fL (80.0-100.0); Monocytes # (auto) 0.5 10 ^3/uL (0-1.3); Monocytes % (auto) 7.6 % (0.0-12.0); Neutrophils # (auto) 4.6 10 ^3/uL (1.6-8.6); Neutrophils % (auto) 72.9 % (37.0-80.0); Nucleated Red Blood Cells % 0.1 %; Red Blood Cells 4.34 10^6/uL (4.0-5.20); Red Cell Distribution Width 16.2 % (11.8-14.3); White Blood Cell 6.3 10^3/uL (4.4-10.8)
[2021-05-17 09:25] LABS: Albumin 2.5 g/dL (3.4-5.0); Calcium 8.2 mg/dL (8.5-10.1); Potassium 3.9 mmol/L (3.5-5.1)
[2021-05-17 09:33] LABS: BUN/Creatinine Ratio 19.5; Bilirubin, Total 0.4 mg/dL (0.2-1.0); Total Protein 6.1 g/dL (6.4-8.2)
[2021-05-17] MEDS: FAMOTIDINE (10MG/ML) 2ML VL IV SCH ×2 (10:21→22:16)
[2021-05-17] MEDS: ASPirin 81 mg TAB PO SCH (10:21)
[2021-05-17] MEDS ORDERED: KETOROLAC TROMETH 30 MG/ML 1ML VIAL ONE (11:29)
[2021-05-17] MEDS ORDERED: LIDOCAINE 2%HCL (LOCAL ANESTH.) INJ 20ML MDV ONE (11:45)
[2021-05-17] MEDS ORDERED: KETOROLAC TROMETH 30 MG/ML 1ML VIAL IV ONE (11:45)
[2021-05-17] MEDS ORDERED: IOHEXOL 350 MG/ML 100ML IJ ONE (11:45)
[2021-05-17 12:20] LABS: INR 1.05 (0.9-1.15); Partial Thromboplastin Time 38.4 sec (23.6-33.0)
[2021-05-17] MEDS ORDERED: SODIUM CHL 0.9% 0 ML ONE (12:24)
[2021-05-17] MEDS ORDERED: MIDAZOLAM HCL 2MG/2ML 2ml VIAL (1mg/ml) ONE (12:24)
[2021-05-17] MEDS ORDERED: fentaNYL CITRATE 100 MCG/2 ML VL ONE (12:24)
[2021-05-17] MEDS ORDERED: ANGIOMAX 250 MG VIAL IV ONE (12:24)
[2021-05-17] MEDS: ATORVASTATIN 20 MG TAB PO SCH (22:16)
[2021-05-18] MEDS: HYDROcodone-ACET 5/325MG TAB PO PRN ×2 (03:06→12:05)
[2021-05-18] MEDS: InsuLIN REG 1unit/0.01ml Soln (100units/ml) SC SCH ×6 (04:00→20:09)
[2021-05-18] MEDS: ACCU-CHEK COMFORT CURVE STRIP VI SCH ×6 (04:00→20:10)
[2021-05-18 05:00] VITALS: BP 132/69
[2021-05-18] MEDS: INSULIN LANTUS (GLARGINE) 1 /0.01ml (100units/ml) SC SCH ×2 (06:35→22:18)
[2021-05-18 06:37] LABS: Albumin 2.3 g/dL (3.4-5.0); Calcium 8.2 mg/dL (8.5-10.1); Potassium 4.4 mmol/L (3.5-5.1)
[2021-05-18 06:39] LABS: BUN/Creatinine Ratio 24.6
[2021-05-18 06:54] LABS: Bilirubin, Total 0.5 mg/dL (0.2-1.0); Total Protein 5.6 g/dL (6.4-8.2)
[2021-05-18 07:52] LABS: Basophils # (auto) 0 10 ^3/uL (0-0.2); Basophils % (auto) 0.5 % (0.0-2.0); Eosinophils # (auto) 0.6 10 ^3/uL (0-0.8); Eosinophils % (auto) 6.5 % (0.0-7.0); Hematocrit 35.6 % (36.0-46.0); Hemoglobin 11.6 g/dL (12.2-16.2); Lymphocytes # (auto) 0.6 10 ^3/uL (0.4-5.4); Lymphocytes % (auto) 6.7 % (10.0-50.0); Mean Corpuscular Hemoglobin 27.8 pg (28.0-32.0); Mean Corpuscular Hgb Conc. 32.6 g/dL (32.0-36.0); Mean Corpuscular Volume 85.2 fL (80.0-100.0); Monocytes # (auto) 0.4 10 ^3/uL (0-1.3); Monocytes % (auto) 4.8 % (0.0-12.0); Neutrophils # (auto) 7.3 10 ^3/uL (1.6-8.6); Neutrophils % (auto) 81.5 % (37.0-80.0); Nucleated Red Blood Cells % 0.2 %; Red Blood Cells 4.18 10^6/uL (4.0-5.20); Red Cell Distribution Width 16.3 % (11.8-14.3)
[2021-05-18] MEDS: ASPirin 81 mg TAB PO SCH (08:40)
[2021-05-18] MEDS: FAMOTIDINE (10MG/ML) 2ML VL IV SCH ×2 (08:41→22:19)
[2021-05-18] MEDS: ENOXAPARIN SOD 40 MG/0.4 ML SYRINGE SC SCH (08:41)
[2021-05-18] MEDS: MORPHINE SULFATE 4 MG/ML SYR/VIAL IV PRN ×3 (08:43→22:30)
[2021-05-18 09:00] VITALS: BP 140/83
[2021-05-18] MEDS ORDERED: INFLUENZA QUAD 2021-2022 0.5 ML SYRG IM ONE (10:00)
[2021-05-18] MEDS ORDERED: ERGOCALCIFEROL 50,000 UNIT(1.25MG) CAP PO SCH (10:00)
[2021-05-18 13:00] VITALS: BP 141/79
[2021-05-18 16:27] LABS: Urine Bacteria FEW /hpf (None Seen); Urine Blood 2+ /uL (Negative); Urine Hyaline Cast FEW /lpf (0 - 2); Urine Mucus FEW (None Seen); Urine Specific Gravity 1.018 (1.001-1.035); Urine WBC 231 /hpf (0 - 5); Urine WBC Clumps PRESENT /hpf (None Seen)
[2021-05-18 16:37] VITALS: BP 118/71
[2021-05-18 16:46] LABS: Protein, Urine 105.6 mg/dL (0.0-11.9)
[2021-05-18 22:00] VITALS: BP 136/84
[2021-05-18] MEDS: ATORVASTATIN 20 MG TAB PO SCH (22:19)
[2021-05-19] MEDS: InsuLIN REG 1unit/0.01ml Soln (100units/ml) SC SCH ×3 (00:19→09:35)
[2021-05-19] MEDS: MORPHINE SULFATE 4 MG/ML SYR/VIAL IV PRN ×2 (03:11→06:17)
[2021-05-19] MEDS: ACCU-CHEK COMFORT CURVE STRIP VI SCH ×3 (04:00→09:36)
[2021-05-19 05:00] VITALS: BP 125/73
[2021-05-19] MEDS: INSULIN LANTUS (GLARGINE) 1 /0.01ml (100units/ml) SC SCH (06:11)
[2021-05-19 09:21] VITALS: BP 153/86
[2021-05-19] MEDS ORDERED: ERGO1CAP23 PO (09:25)
[2021-05-19] MEDS ORDERED: EMPA1TAB3 PO (09:25)
[2021-05-19] MEDS: ENOXAPARIN SOD 40 MG/0.4 ML SYRINGE SC SCH (09:36)
[2021-05-19] MEDS: FAMOTIDINE (10MG/ML) 2ML VL IV SCH (09:36)
[2021-05-19] MEDS: ASPirin 81 mg TAB PO SCH (09:36)
[2021-05-20 13:20] LABS: Hepatitis C Antibody Negative (Negative)
== END 2021-05-19 10:10 | disposition home or self-care (01) | DRG 420 ==
LOC: ER 19:20 → EDBD 19:20 → TELE 05-17 04:40 → TELE-CENTR 05-17 11:20 → CENTRAL 05-18 12:48
PROVIDERS: ADMIT Nurse Practitioner Family; ATTEND Nurse Practitioner Family
PROC: B2111ZZ Fluoroscopy of Multiple Coronary Arteries using Low Osmolar Contrast (ICD-10-PCS; principal; 2021-05-17)
DX: E11.65 Type 2 diabetes mellitus with hyperglycemia (principal); N17.0 Acute kidney failure with tubular necrosis; I21.A1 Myocardial infarction type 2; J96.10 Chronic respiratory failure, unspecified whether with hypoxia or hypercapnia; E44.0 Moderate protein-calorie malnutrition; I13.0 Hypertensive heart and chronic kidney disease with heart failure and stage 1 through stage 4 chronic kidney disease, or unspecified chronic kidney disease; I50.9 Heart failure, unspecified; E87.1 Hypo-osmolality and hyponatremia; E11.22 Type 2 diabetes mellitus with diabetic chronic kidney disease; E55.9 Vitamin D deficiency, unspecified; E66.01 Morbid (severe) obesity due to excess calories; E78.5 Hyperlipidemia, unspecified; G89.29 Other chronic pain; I25.10 Atherosclerotic heart disease of native coronary artery without angina pectoris; J44.9 Chronic obstructive pulmonary disease, unspecified; Z20.822 Contact with and (suspected) exposure to COVID-19; K21.9 Gastro-esophageal reflux disease without esophagitis; M25.461 Effusion, right knee; M54.50 Low back pain, unspecified; M23.91 Unspecified internal derangement of right knee; W01.0XXA Fall on same level from slipping, tripping and stumbling without subsequent striking against object, initial encounter; E88.09 Other disorders of plasma-protein metabolism, not elsewhere classified; N18.31 Chronic kidney disease, stage 3a; Z79.02 Long term (current) use of antithrombotics/antiplatelets; Z79.82 Long term (current) use of aspirin; I25.2 Old myocardial infarction; Z82.49 Family history of ischemic heart disease and other diseases of the circulatory system; Z83.3 Family history of diabetes mellitus; Z87.442 Personal history of urinary calculi; Z95.810 Presence of automatic (implantable) cardiac defibrillator; Z91.040 Latex allergy status; Z98.51 Tubal ligation status; Z68.41 Body mass index [BMI] 40.0-44.9, adult; Y93.89 Activity, other specified; Y92.89 Other specified places as the place of occurrence of the external cause; Y99.8 Other external cause status
CPT/HCPCS: 36415; 36600; 51702; 70450; 71045; 72125; 72128; 72131; 72170; 73030; 73070; 73560; 73700; 76775; 80053; 80061; 81001; 82010; 82306; 82570; 82805; 82962; 83036; 83605; 83690; 83735; 83970; 84100; 84156; 84300; 84484; 85025; 85610; 85730; 86803; 87340; 87426; 93005; 93306; 93454; 96361; 96365; 96372; 96375; 97162; 99152; G0378; J1815; J1885; J2250; J3490

== ENCOUNTER 2021-07-04 23:42 | Inpatient (IN) | payer MEDICAID ==
[~2021-07-04] VITALS: Ht 162.6 cm; Wt 123.9 kg
[~2021-07-04 23:42] MED LIST changes: +EMPA1TAB3 PO; +ERGO1CAP23 PO
[2021-07-05 04:24] LABS: Basophils # (auto) 0 10 ^3/uL (0-0.2); Eosinophils # (auto) 0 10 ^3/uL (0-0.8); Hemoglobin 11.3 g/dL (12.2-16.2); Lymphocytes # (auto) 0.5 10 ^3/uL (0.4-5.4); Monocytes # (auto) 0.4 10 ^3/uL (0-1.3); Neutrophils # (auto) 4.2 10 ^3/uL (1.6-8.6); Nucleated Red Blood Cells % 0.1 %
[2021-07-05 04:28] LABS: Basophils % (auto) 0.6 % (0.0-2.0); Eosinophils % (auto) 0.2 % (0.0-7.0); Hematocrit 35.5 % (36.0-46.0); Lymphocytes % (auto) 9.2 % (10.0-50.0); Mean Corpuscular Hemoglobin 27.3 pg (28.0-32.0); Mean Corpuscular Hgb Conc. 31.8 g/dL (32.0-36.0); Monocytes % (auto) 8.7 % (0.0-12.0); Neutrophils % (auto) 81.3 % (37.0-80.0); Red Blood Cells 4.13 10^6/uL (4.0-5.20); Red Cell Distribution Width 17.9 % (11.8-14.3); White Blood Cell 5.1 10^3/uL (4.4-10.8)
[2021-07-05 04:43] LABS: Albumin 2.9 g/dL (3.4-5.0); Calcium 8.7 mg/dL (8.5-10.1); Potassium 4.8 mmol/L (3.5-5.1)
[2021-07-05] MEDS ORDERED: FUROSEMIDE 40 MG/4 ML VIAL IV ONE (04:45)
[2021-07-05 04:53] LABS: BUN/Creatinine Ratio 15.8; Bilirubin, Total 0.4 mg/dL (0.2-1.0); Total Protein 6.5 g/dL (6.4-8.2)
[2021-07-05] MEDS ORDERED: ACETAMINOPHEN 325 MG TAB PO PRN (06:30)
[2021-07-05] MEDS ORDERED: DEXTROSE (50%) 50ML SYRG IV PRN (06:30)
[2021-07-05] MEDS ORDERED: HYDROcodone-ACET 5/325MG TAB PO PRN (06:30)
[2021-07-05] MEDS ORDERED: DOCUSATE SOD 100 MG CAP PO PRN (06:30)
[2021-07-05] MEDS ORDERED: ONDANSETRON HCL 4 MG/2 ML VIAL IV PRN (06:30)
[2021-07-05] MEDS ORDERED: NITROGLYCERIN 0.4 MG SL TAB SL PRN (06:30)
[2021-07-05] MEDS ORDERED: MORPHINE SULFATE INJECTION 2 MG/ML SYRG IV PRN ×2 (06:30)
[2021-07-05] MEDS: ACCU-CHEK COMFORT CURVE STRIP VI SCH ×3 (07:40→17:43)
[2021-07-05] MEDS: InsuLIN REG 1unit/0.01ml Soln (100units/ml) SC SCH ×4 (07:44→22:00)
[2021-07-05 08:16] LABS: Basophils # (auto) 0 10 ^3/uL (0-0.2); Basophils % (auto) 0.6 % (0.0-2.0); Eosinophils # (auto) 0 10 ^3/uL (0-0.8); Eosinophils % (auto) 0.4 % (0.0-7.0); Hematocrit 32.9 % (36.0-46.0); Hemoglobin 10.8 g/dL (12.2-16.2); Lymphocytes # (auto) 0.5 10 ^3/uL (0.4-5.4); Lymphocytes % (auto) 8.8 % (10.0-50.0); Mean Corpuscular Hemoglobin 28.1 pg (28.0-32.0); Mean Corpuscular Hgb Conc. 32.7 g/dL (32.0-36.0); Mean Corpuscular Volume 85.7 fL (80.0-100.0); Monocytes # (auto) 0.6 10 ^3/uL (0-1.3); Neutrophils # (auto) 4.2 10 ^3/uL (1.6-8.6); Neutrophils % (auto) 79.2 % (37.0-80.0); Red Blood Cells 3.83 10^6/uL (4.0-5.20); White Blood Cell 5.3 10^3/uL (4.4-10.8)
[2021-07-05 08:25] LABS: Albumin 2.7 g/dL (3.4-5.0); Calcium 8.5 mg/dL (8.5-10.1); Potassium 4.4 mmol/L (3.5-5.1)
[2021-07-05 08:30] LABS: BUN/Creatinine Ratio 16.7; Bilirubin, Total 0.4 mg/dL (0.2-1.0); Total Protein 6.4 g/dL (6.4-8.2)
[2021-07-05] MEDS: ZINC SULFATE 220mg CAP or TAB PO SCH (08:57)
[2021-07-05] MEDS: MULTIPLE VITAMIN TAB PO SCH (08:57)
[2021-07-05] MEDS: ASPirin 81 mg TAB PO SCH (08:57)
[2021-07-05] MEDS ORDERED: ASCORBIC ACID 500 MG TAB PO SCH (10:00)
[2021-07-05] MEDS ORDERED: HEPARIN SODIUM (PORCINE) 5000 UNITS/ML 1ML VIAL SC SCH (10:00)
[2021-07-05] MEDS ORDERED: FUROSEMIDE 40 MG/4 ML VIAL IV SCH (10:00)
[2021-07-05] MEDS ORDERED: FAMOTIDINE (10MG/ML) 2ML VL IV SCH (10:00)
[2021-07-05] MEDS ORDERED: INSULIN LANTUS (GLARGINE) 1 /0.01ml (100units/ml) SC SCH (11:50)
[2021-07-05] MEDS: SODIUM CHLOR 0.9% PF (SALINE LOCK) 10ML VIAL/SYR IV SCH (11:56)
[2021-07-05] MEDS ORDERED: methylPREDNISolone SOD SUCC 40 MG/ML VL IV SCH (14:00)
[2021-07-05] MEDS ORDERED: BUMETANIDE 2.5mg/10ml (0.25 mg/ml) INJ IV ONE (14:15)
[2021-07-05] MEDS ORDERED: ENOXAPARIN SOD 40 MG/0.4 ML SYRINGE SC ONE (14:15)
[2021-07-05] MEDS ORDERED: BENAZEPRIL HCL 10 MG TAB PO ONE (14:15)
[2021-07-05] MEDS ORDERED: hydrALAZINE HCL 20 MG/ML VL IV PRN (14:15)
[2021-07-05] MEDS ORDERED: METOPROLOL SUCCINATE XL 50 MG TAB PO ONE (14:15)
[2021-07-05 20:45] VITALS: BP 134/82
[2021-07-05 22:00] VITALS: BP 134/82
[2021-07-05] MEDS ORDERED: ISOSORBIDE MONONITRATE 20 MG TAB PO SCH (22:00)
[2021-07-05] MEDS ORDERED: ATORVASTATIN 20 MG TAB PO SCH (22:00)
[2021-07-06 05:20] LABS: Basophils # (auto) 0 10 ^3/uL (0-0.2); Basophils % (auto) 0.3 % (0.0-2.0); Eosinophils # (auto) 0 10 ^3/uL (0-0.8); Hematocrit 34.1 % (36.0-46.0); Hemoglobin 11.2 g/dL (12.2-16.2); Lymphocytes # (auto) 0.5 10 ^3/uL (0.4-5.4); Lymphocytes % (auto) 9.8 % (10.0-50.0); Mean Corpuscular Hemoglobin 27.8 pg (28.0-32.0); Mean Corpuscular Hgb Conc. 32.9 g/dL (32.0-36.0); Mean Corpuscular Volume 84.6 fL (80.0-100.0); Monocytes # (auto) 0.3 10 ^3/uL (0-1.3); Monocytes % (auto) 4.8 % (0.0-12.0); Neutrophils # (auto) 4.7 10 ^3/uL (1.6-8.6); Neutrophils % (auto) 85.1 % (37.0-80.0); Nucleated Red Blood Cells % 0.1 %; Red Blood Cells 4.03 10^6/uL (4.0-5.20); Red Cell Distribution Width 17.8 % (11.8-14.3); White Blood Cell 5.6 10^3/uL (4.4-10.8)
[2021-07-06 05:36] LABS: INR 1.17 (0.9-1.15); Partial Thromboplastin Time 28.6 sec (23.6-33.0)
[2021-07-06 05:41] LABS: Albumin 2.6 g/dL (3.4-5.0); Calcium 8.7 mg/dL (8.5-10.1); Potassium 3.9 mmol/L (3.5-5.1); Uric Acid 9.8 mg/dL (2.6-6.0)
[2021-07-06 05:46] LABS: BUN/Creatinine Ratio 22.4; Bilirubin, Total 0.5 mg/dL (0.2-1.0); Phosphorus 3.9 mg/dL (2.5-4.90); Total Protein 6.4 g/dL (6.4-8.2)
[2021-07-06] MEDS: SODIUM CHLOR 0.9% PF (SALINE LOCK) 10ML VIAL/SYR IV SCH ×4 (06:41→21:36)
[2021-07-06] MEDS: ISOSORBIDE MONONITRATE 20 MG TAB PO SCH ×3 (06:44→21:41)
[2021-07-06] MEDS: BUMETANIDE 2.5mg/10ml (0.25 mg/ml) INJ IV SCH ×2 (06:44→18:00)
[2021-07-06] MEDS: ASCORBIC ACID 500 MG TAB PO SCH ×3 (06:45→21:41)
[2021-07-06] MEDS: ATORVASTATIN 20 MG TAB PO SCH ×2 (06:45→21:41)
[2021-07-06] MEDS: ACCU-CHEK COMFORT CURVE STRIP VI SCH ×5 (06:55→22:02)
[2021-07-06] MEDS: methylPREDNISolone SOD SUCC 40 MG/ML VL IV SCH ×3 (06:55→21:37)
[2021-07-06] MEDS: InsuLIN REG 1unit/0.01ml Soln (100units/ml) SC SCH ×4 (06:59→22:02)
[2021-07-06] MEDS: MULTIPLE VITAMIN TAB PO SCH (10:00)
[2021-07-06] MEDS: METOPROLOL SUCCINATE XL 50 MG TAB PO SCH (10:00)
[2021-07-06] MEDS: ENOXAPARIN SOD 40 MG/0.4 ML SYRINGE SC SCH (10:00)
[2021-07-06] MEDS: BENAZEPRIL HCL 10 MG TAB PO SCH (10:00)
[2021-07-06] MEDS: ASPirin 81 mg TAB PO SCH (10:00)
[2021-07-06] MEDS: ZINC SULFATE 220mg CAP or TAB PO SCH (10:00)
[2021-07-06] MEDS: INSULIN LANTUS (GLARGINE) 1 /0.01ml (100units/ml) SC SCH (21:43)
[2021-07-06 22:00] VITALS: BP 113/80
[2021-07-07 05:00] VITALS: BP 151/70
[2021-07-07] MEDS: methylPREDNISolone SOD SUCC 40 MG/ML VL IV SCH ×3 (06:00→22:08)
[2021-07-07] MEDS: SODIUM CHLOR 0.9% PF (SALINE LOCK) 10ML VIAL/SYR IV SCH ×3 (06:00→22:08)
[2021-07-07] MEDS: BUMETANIDE 2.5mg/10ml (0.25 mg/ml) INJ IV SCH ×2 (06:00→18:00)
[2021-07-07] MEDS: ACCU-CHEK COMFORT CURVE STRIP VI SCH ×4 (06:30→22:26)
[2021-07-07] MEDS: InsuLIN REG 1unit/0.01ml Soln (100units/ml) SC SCH ×4 (06:30→22:25)
[2021-07-07 09:00] VITALS: BP 148/78
[2021-07-07] MEDS ORDERED: guaiFENesin-DM 100/10mg/5ml SYR PO PRN (09:30)
[2021-07-07] MEDS: INSULIN LANTUS (GLARGINE) 1 /0.01ml (100units/ml) SC SCH ×2 (10:00→22:25)
[2021-07-07] MEDS: METOPROLOL SUCCINATE XL 50 MG TAB PO SCH (10:00)
[2021-07-07] MEDS ORDERED: HYDROmorphone HCL 2 MG/ML VL IV PRN (10:45)
[2021-07-07] MEDS: ISOSORBIDE MONONITRATE 20 MG TAB PO SCH ×2 (12:58→22:09)
[2021-07-07 13:00] VITALS: BP 153/98
[2021-07-07] MEDS: MULTIPLE VITAMIN TAB PO SCH (13:00)
[2021-07-07] MEDS: ASPirin 81 mg TAB PO SCH (13:00)
[2021-07-07] MEDS: BENAZEPRIL HCL 10 MG TAB PO SCH (13:01)
[2021-07-07] MEDS: ENOXAPARIN SOD 40 MG/0.4 ML SYRINGE SC SCH (13:02)
[2021-07-07] MEDS: ZINC SULFATE 220mg CAP or TAB PO SCH (13:02)
[2021-07-07] MEDS: ASCORBIC ACID 500 MG TAB PO SCH ×2 (13:02→22:09)
[2021-07-07 17:00] VITALS: BP 164/79
[2021-07-07 22:00] VITALS: BP 151/92
[2021-07-07] MEDS: ATORVASTATIN 20 MG TAB PO SCH (22:09)
[2021-07-08] MEDS ORDERED: DEXTROSE (50%) 50ML SYRG IV PRN (01:00)
[2021-07-08] MEDS: HYDROmorphone HCL 2 MG/ML VL IV PRN ×2 (03:54→11:00)
[2021-07-08] MEDS: ACCU-CHEK COMFORT CURVE STRIP VI SCH ×5 (03:55→11:26)
[2021-07-08] MEDS: InsuLIN REG 1unit/0.01ml Soln (100units/ml) SC SCH ×5 (04:23→11:25)
[2021-07-08 05:00] VITALS: BP 169/88
[2021-07-08] MEDS: SODIUM CHLOR 0.9% PF (SALINE LOCK) 10ML VIAL/SYR IV SCH (06:33)
[2021-07-08] MEDS: methylPREDNISolone SOD SUCC 40 MG/ML VL IV SCH (06:33)
[2021-07-08] MEDS: BUMETANIDE 2.5mg/10ml (0.25 mg/ml) INJ IV SCH (06:34)
[2021-07-08 09:00] VITALS: BP 172/86
[2021-07-08] MEDS: INSULIN LANTUS (GLARGINE) 1 /0.01ml (100units/ml) SC SCH (10:00)
[2021-07-08] MEDS: ASPirin 81 mg TAB PO SCH (10:40)
[2021-07-08] MEDS: BENAZEPRIL HCL 10 MG TAB PO SCH (10:43)
[2021-07-08] MEDS: ISOSORBIDE MONONITRATE 20 MG TAB PO SCH (10:44)
[2021-07-08] MEDS: ZINC SULFATE 220mg CAP or TAB PO SCH (10:45)
[2021-07-08] MEDS: METOPROLOL SUCCINATE XL 50 MG TAB PO SCH (10:45)
[2021-07-08] MEDS: ENOXAPARIN SOD 40 MG/0.4 ML SYRINGE SC SCH (10:46)
[2021-07-08] MEDS: MULTIPLE VITAMIN TAB PO SCH (10:46)
[2021-07-08] MEDS: ASCORBIC ACID 500 MG TAB PO SCH (10:46)
[2021-07-08 13:00] VITALS: BP 157/89
== END 2021-07-08 13:45 | disposition home or self-care (01) | DRG 194 ==
LOC: ER 23:42 → TELE 07-05 06:28 → TELE-CENTR 07-05 20:45
PROVIDERS: ADMIT Nurse Practitioner Family; ATTEND Family Medicine
DX: I13.0 Hypertensive heart and chronic kidney disease with heart failure and stage 1 through stage 4 chronic kidney disease, or unspecified chronic kidney disease (principal); J96.01 Acute respiratory failure with hypoxia; N17.0 Acute kidney failure with tubular necrosis; I21.A1 Myocardial infarction type 2; E44.0 Moderate protein-calorie malnutrition; E11.22 Type 2 diabetes mellitus with diabetic chronic kidney disease; J18.9 Pneumonia, unspecified organism; D64.9 Anemia, unspecified; N18.4 Chronic kidney disease, stage 4 (severe); I50.43 Acute on chronic combined systolic (congestive) and diastolic (congestive) heart failure; J44.0 Chronic obstructive pulmonary disease with (acute) lower respiratory infection; E11.40 Type 2 diabetes mellitus with diabetic neuropathy, unspecified; E66.01 Morbid (severe) obesity due to excess calories; J44.1 Chronic obstructive pulmonary disease with (acute) exacerbation; E78.5 Hyperlipidemia, unspecified; K21.9 Gastro-esophageal reflux disease without esophagitis; I25.10 Atherosclerotic heart disease of native coronary artery without angina pectoris; Z20.822 Contact with and (suspected) exposure to COVID-19; F41.9 Anxiety disorder, unspecified; Z82.49 Family history of ischemic heart disease and other diseases of the circulatory system; Z83.3 Family history of diabetes mellitus; I25.2 Old myocardial infarction; Z87.442 Personal history of urinary calculi; Z91.19 Patient's noncompliance with other medical treatment and regimen; Z98.51 Tubal ligation status; Z68.37 Body mass index [BMI] 37.0-37.9, adult; Z95.810 Presence of automatic (implantable) cardiac defibrillator; Z91.040 Latex allergy status
CPT/HCPCS: 36415; 71045; 80053; 82962; 83036; 83735; 83880; 84100; 84443; 84484; 84550; 85025; 85379; 85610; 85730; 87081; 87426; 93005; 93306; 96374; 96375; G0378; J1815; J3490

== ENCOUNTER 2021-07-31 20:16 | Emergency (ER) | payer MEDICAID ==
[~2021-07-31] VITALS: Ht 162.6 cm; Wt 120.2 kg
[2021-07-31 22:24] VITALS: BP 148/60
== END 2021-07-31 22:27 | disposition home or self-care (01) ==
LOC: ER 20:16
DX: M25.461 Effusion, right knee (principal); J44.9 Chronic obstructive pulmonary disease, unspecified; E11.9 Type 2 diabetes mellitus without complications; K21.9 Gastro-esophageal reflux disease without esophagitis; E78.5 Hyperlipidemia, unspecified; I10 Essential (primary) hypertension; Z98.51 Tubal ligation status; Z87.442 Personal history of urinary calculi; W18.39XA Other fall on same level, initial encounter; Y93.89 Activity, other specified; Y92.89 Other specified places as the place of occurrence of the external cause; Y99.8 Other external cause status
CPT/HCPCS: 73562

== ENCOUNTER 2025-01-20 09:06 | Emergency (ER) | payer MEDICAID ==
[~2025-01-20] VITALS: Ht 162.6 cm; Wt 100.0 kg
[~2025-01-20 09:06] MED LIST changes: +GABA-1250 PO; -GABA300C10 PO; -LISI40TA11 PO; +LISI40TA16 PO; +METH-1181 PO; -METH500T22 PO; +POTA-36 PO; -POTA10TA51 PO
--- NOTE | 2025-01-20 09:31 | ED.PDOC ---
History of Present Illness HPI Comments This is a 54-year-old female with past medical history of right foot osteomyelitis on IV antibiotics, type 2 diabetes mellitus, status post amputation of left great toe presented to the ER due to run out of pain medications. The patient states that she was diagnosed with right foot osteomyelitis on January 01, 2025 and on IV antibiotics with home health and and home health nurse this is in the wound 2 times a day. The patient went to the PCP but no one is available that's prompted this visit for pain medications. PCP: Dr. Neil Chief Complaint: Wound Check Time Seen by MD: 09:08 Primary Care Provider: MAXWELL Allergies: Coded Allergies: Latex (Verified Allergy, Unknown, 10/02/10) Uncoded Allergies: ADHESIVE TAPE (Allergy, Unknown, 11/24/20) Home Meds Active Scripts Oxycodone W/ Acetaminophen (Percocet 5/325MG) 1 Tab Tb, 1 TAB PO TID for 5 Days, #15 TAB Prov:DANIEL QUIJANO MD 01/20/25 Empagliflozin (Jardiance) 25 Mg Tab, 25 MG PO QAM for 30 Days, #30 TAB Prov:BRANDIN STEEL MD 05/19/21 Ergocalciferol (VITAMIN D 98220 UNIT) 50,000 [place], [address] UNIT PO Q7D for 10 Days, #10 CAP Prov:BRANDIN STEEL MD 05/19/21 Furosemide (Furosemide) 40 Mg Tab, 1 TAB PO DAILY, #30 TAB 0 Refills Prov:ABDIEL GREENBERG MD 08/01/19 Doxycycline Hyclate (DOXYCYCLINE HYCLATE) 100 Mg Tab, 1 TAB PO BID, #14 TAB Prov:ABDIEL GREENBERG MD 08/01/19 Reported Medications Clopidogrel Bisulfate (CLOPIDOGREL) 75 Mg Tab, 75 MG PO DAILY for 30 Days, MG 12/01/17 Methocarbamol (Methocarbamol) 500 Mg Tab, 500 MG PO BID for FOR MUSCLE SPASM for 30 Days, MG 12/01/17 Diphenhydramine Hcl (Benadryl Allergy) 25 Mg Cap, 25 MG PO Q4HP PRN for FOR ITCHING, CAP 12/01/17 Nitroglycerin (NTROSTAT SUBLINGUAL) 0.4 Mg Sl, 0.4 MG SL PRN PRN for FOR CHEST PAIN *MAY REPEAT EVERY 5 MINUTES X 3 TOTAL IF NO RELIEF, INITIATE ANALGESIC THERAPY. NOTIFY PHYSICIAN *Do not crush. 12/01/17 Insulin Aspart Protamine & Asp (Novolog Mix 70/30 Prefill (70-30) 100 Unit/ml) 1 Inj Inj, 1 INJ SC BID, INJ 12/01/17 Lorazepam (Ativan) 0.5 Mg Tab, 1 TAB PO QHSP for ANXIETY, #30 TAB 12/01/17 Ondansetron (Zofran) 4 Mg Tab, 4 MG PO Q4HP PRN for NAUSEA / VOMITING, MG 12/01/17 Insulin Detemir (Levemir) Inj, 20 SC QHSP, INJ 12/01/17 Albuterol Sulfate (Proair Respiclick) 108 Mcg/Act Aer, 108 MCG IN TIDPRN PRN for SHORTNESS OF BREATH, AER 12/01/17 Potassium Chloride (POTASSIUM CHLORIDE CR) 10 Meq Tb, 8 MEQ PO DAILY 12/01/17 Docusate Sodium (Colace) 100 Mg Cap, 100 MG PO BID, CAP 12/01/17 Hydrocodone-Acetaminophen (Hydrocodone Bitartrate/AC 7.5-325 mg) 1 Tab Tab, 1 TAB PO Q6HP PRN for MODERATE PAIN, TAB 12/01/17 Gabapentin (Gabapentin) 300 Mg Cap, 300 MG PO TID for 30 Days, MG 12/01/17 Glipizide (Glipizide) 10 Mg Tab, 10 MG PO DAILY for 30 Days, MG 12/01/17 Aspirin (Aspir-Low) 81 Mg Tab, 81 MG PO DAILY for 30 Days, MG 12/01/17 Lisinopril (Lisinopril) 40 Mg Tab, 40 MG PO DAILY for 30 Days, MG 12/01/17 Information Source: Patient Mode of Arrival: Wheelchair Severity: Mild Timing: Days Duration: Since onset Prehospital treatment: None Medication Refill: Ran out of Medication, For: Pain Past Medical History PAST MEDICAL HISTORY: Anemia, Angina, CHF, COPD, DM, GERD, High Lipids, HTN, Kidney Stones, [place] Surgical History: BTL, , Hernia Repair, Pacemaker, PTCA, Tubal L igation ART DEPARTMENT HEAD History: Ovarian Cysts Family History Family History: No family hx of Cancer, No family hx of DM, No family hx of Heart vannessa, Family hx of HTN Social History Smoker: Non-Smoker Alcohol: Denies ETOH Use Drugs: Denies Drug Use Lives In: Home Constitutional: denies: chills, diaphoresis, fatigue, fever, malaise, sweats, weakness, others EENTM: denies: blurred vision, double vision, ear bleeding, ear discharge, ear drainage, ear pain, ear ringing, eye pain, eye redness, hearing loss, mouth pain, mouth swelling, nasal discharge, nose bleeding, nose congestion, nose pain, photophobia, tearing, throat pain, throat swelling, voice changes, others Respiratory: denies: cough, hemoptysis, orthopnea, SOB at rest, shortness of breath, SOB with excertion, stridor, wheezing, others Cardiovascular: denies: chest pain, dizzy spells, diaphoresis, Dyspnea on exertion, edema, irregular heart beat, left arm pain, lightheadedness, palpitations, PND, syncope, others Gastrointestinal: denies: abdomen distended, abdominal pain, blood streaked bowels, constipated, diarrhea, dysphagia, difficulty swallowing, hematemesis, melena, nausea, poor appetite, poor fluid intake, rectal bleeding, rectal pain, vomiting, others Genitourinary: denies: abnormal vagina bleeding, burning, dyspareunia, dysuria, flank pain, frequency, hematuria, incontinence, pain, , vagina disch arge, urgency, others Musculoskeletal: reports: others; denies: back pain, gout, joint pain, joint swelling, muscle pain, muscle stiffness, neck pain Integumetry: reports: wounds Allergic/Immunocompromised: denies: Difficulty Healing, Frequent Infections, Hives, Itching, others Psychiatric: denies: anxiety, bipolar disorder, depression, hopeless, panic disorder, schizophrenia, sleepless, suicidal, others Physical Exam General Appearance: Normal HEENT: Normal ENT Inspection, Pharynx Normal, TMs Normal Neck: Full Range of Motion, Non-Tender, Normal, Normal Inspection Respiratory: Accessory Muscle Use Cardiovascular: No Edema, No JVD, No Murmur, No Gallop, Normal Peripheral Pulses, Regular Rate/Rhythm Breast Exam: Deferred Gastrointestinal: No Organomegaly, Non Tender, No Pulsatile Mass, Normal Bowel Sounds, Soft Genitalia: Deferred Pelvic: Deferred Rectal: Deferred Extremities: Other (Wound on the bottom of the right heel, no sign of infection or inflammation.) Neurologic: NOT DONE Cerebellar Function: NOT DONE Reflexes: NOT DONE Skin: Wounds Peripheral Pulses: 2+ carotid (R), 2+ carotid (L), 2+ femoral (R), 2+ femoral (L), 2+ dorsalis pedis (R), 2+ dorsalis pedis (L), 2+ Radial (R), 2+ Radial (L), 2+ Brachial (R), 2+ Brachial (L) Lymphatic: NOT DONE Was a procedure done? Was a procedure done?: No Differential Dx Considerations may include: Wound on the right foot, right foot osteomyelitis X-Ray, Labs, Meds, VS Vital Signs Date Time Temp Pulse Resp B/P (MAP) Pulse Ox O2 Delivery O2 Flow Rate FiO2 01/20/25 10:06 76 19 96 Room Air 01/20/25 10:06 97.6 76 19 150/81 (104) 96 97.6 01/20/25 09:06 97.6 77 18 155/87 99 97.6 Current Medications Medications (Trade) Dose Ordered Sig/Zehra Route Start Time Stop Time Status Last Admin Acetaminophen/ Hydrocodone Bitart (Ripley 10/325MG Tab) 1 tab ONCE ONCE PO 01/20/25 09:45 01/20/25 09:49 DC 01/20/25 10:01 Time of 1ST Reevaluation: 21:29 Reevaluation 1ST: Unchanged Patient Education/Counseling: Diagnosis, Treatment Family Education/Counseling: Diagnosis, Treatment SEPSIS Sepsis Screen Date sepsis recognized/suspect: Jan 20, 2025 Time Sepsis recognized/suspect: 0909 Recent Procedure: Yes On Antibiotic Therapy: Yes Respiratory Rate >20: No Heart Rate >90: No Temp<36 C (96.8 F) or >38.3 C: No SBP <90 or MAP <65 mmHG: No New Acute Mental Status Change: No Is the patient on CPAP, BIPAP,: No Vital Signs Date Time Temp Pulse Resp B/P (MAP) Pulse Ox O2 Delivery O2 Flow Rate FiO2 01/20/25 10:06 76 19 96 Room Air 01/20/25 10:06 97.6 76 19 150/81 (104) 96 97.6 01/20/25 09:06 97.6 77 18 155/87 99 97.6 Medications Medications Dose Ordered Sig/Zehra Route Start Time Stop Time Status Last Admin Dose Admin Acetaminophen/ Hydrocodone Bitart 1 tab ONCE ONCE PO 01/20/25 09:45 01/20/25 09:49 DC 01/20/25 10:01 Departure 1 Departure Time of Disposition: 21:30 Impression: Primary Impression: Wound of right foot Additional Impression: Foot osteomyelitis, right Disposition: 01 HOME / SELF CARE / HOMELESS Condition: Fair e-Prescriptions Oxycodone W/ Acetaminophen (Percocet 5/325MG) 1 Tab Tb 1 TAB PO TID for 5 Days, #15 TAB Prov: DANIEL QUIJANO MD 01/20/25 Critical Care Note Critical Care Time?: No Stability Stability form required: KAVON Diggs RESIDENT Jan 20, 2025 09:31
[2025-01-20] MEDS: HYDROcodone-ACET 10/325MG TAB PO ONE (10:01)
[2025-01-20 10:06] VITALS: BP 150/81; PULSE 76; RESP 19; TEMP 97.6; O2SAT 96
[2025-01-20] MEDS ORDERED: PERCOT PO (10:34)
== END 2025-01-20 11:13 | disposition home or self-care (01) ==
LOC: ER 09:06
DX: S90.921A Unspecified superficial injury of right foot, initial encounter (principal); M86.9 Osteomyelitis, unspecified; I11.0 Hypertensive heart disease with heart failure; I50.9 Heart failure, unspecified; E11.69 Type 2 diabetes mellitus with other specified complication; Z79.899 Other long term (current) drug therapy; Z98.890 Other specified postprocedural states; X58.XXXA Exposure to other specified factors, initial encounter; Y93.89 Activity, other specified; Y92.89 Other specified places as the place of occurrence of the external cause; Y99.8 Other external cause status

== ENCOUNTER 2025-01-31 17:19 | Emergency (ER) | payer MEDICAID ==
[~2025-01-31] VITALS: Ht 162.6 cm; Wt 90.0 kg
[~2025-01-31 17:19] MED LIST changes: +PERCOT PO
--- NOTE | 2025-01-31 18:45 | ED.PDOC ---
History of Present Illness(SKN HPI Comments 54 year old female presents to ER with complaints of PICC line removal. Patient reports that she recently finished IV antibiotic therapy at home for osteomyelitis of right foot and was sent to ER today by her PCP Dr. Nicholson to have her PICC line removed from left arm. States she currently is not experienci ng any symptoms and presents to ER afebrile, in no distress. Denies any further symptoms/complaints Chief Complaint: Tube Replacement Time Seen by MD: 18:18 Primary Care Provider: MAIN History of Present Illness: Nurses Notes, Medications, Allergies Allergies: Coded Allergies: Latex (Verified Allergy, Unknown, 10/02/10) Uncoded Allergies: ADHESIVE TAPE (Allergy, Unknown, 11/24/20) Home Meds Active Scripts Oxycodone W/ Acetaminophen (Percocet 5/325MG) 1 Tab Tb, 1 TAB PO TID for 5 Days, #15 TAB Prov:DANIEL QUIJANO MD 01/20/25 Empagliflozin (Jardiance) 25 Mg Tab, 25 MG PO QAM for 30 Days, #30 TAB Prov:BRANDIN STEEL MD 05/19/21 Ergocalciferol (VITAMIN D 23166 UNIT) 50,000 [place], [address] UNIT PO Q7D for 10 Days, #10 CAP Prov:BRANDIN STEEL MD 05/19/21 Furosemide (Furosemide) 40 Mg Tab, 1 TAB PO DAILY, #30 TAB 0 Refills Prov:ABDIEL GREENBERG MD 08/01/19 Doxycycline Hyclate (DOXYCYCLINE HYCLATE) 100 Mg Tab, 1 TAB PO BID, #14 TAB Prov:ABDIEL GREENBERG MD 08/01/19 Reported Medications Clopidogrel Bisulfate (CLOPIDOGREL) 75 Mg Tab, 75 MG PO DAILY for 30 Days, MG 12/01/17 Methocarbamol (Methocarbamol) 500 Mg Tab, 500 MG PO BID for FOR MUSCLE SPASM for 30 Days, MG 12/01/17 Diphenhydramine Hcl (Benadryl Allergy) 25 Mg Cap, 25 MG PO Q4HP PRN for FOR ITCHING, CAP 12/01/17 Nitroglycerin (NTROSTAT SUBLINGUAL) 0.4 Mg Sl, 0.4 MG SL PRN PRN for FOR CHEST PAIN *MAY REPEAT EVERY 5 MINUTES X 3 TOTAL IF NO RELIEF, INITIATE ANALGESIC THERAPY. NOTIFY PHYSICIAN *Do not crush. 12/01/17 Insulin Aspart Protamine & Asp (Novolog Mix 70/30 Prefill (70-30) 100 Unit/ml) 1 Inj Inj, 1 INJ SC BID, INJ 12/01/17 Lorazepam (Ativan) 0.5 Mg Tab, 1 TAB PO QHSP for ANXIETY, #30 TAB 12/01/17 Ondansetron (Zofran) 4 Mg Tab, 4 MG PO Q4HP PRN for NAUSEA / VOMITING, MG 12/01/17 Insulin Detemir (Levemir) Inj, 20 SC QHSP, INJ 12/01/17 Albuterol Sulfate (Proair Respiclick) 108 Mcg/Act Aer, 108 MCG IN TIDPRN PRN for SHORTNESS OF BREATH, AER 12/01/17 Potassium Chloride (POTASSIUM CHLORIDE CR) 10 Meq Tb, 8 MEQ PO DAILY 12/01/17 Docusate Sodium (Colace) 100 Mg Cap, 100 MG PO BID, CAP 12/01/17 Hydrocodone-Acetaminophen (Hydrocodone Bitartrate/AC 7.5-325 mg) 1 Tab Tab, 1 TAB PO Q6HP PRN for MODERATE PAIN, TAB 12/01/17 Gabapentin (Gabapentin) 300 Mg Cap, 300 MG PO TID for 30 Days, MG 12/01/17 Glipizide (Glipizide) 10 Mg Tab, 10 MG PO DAILY for 30 Days, MG 12/01/17 Aspirin (Aspir-Low) 81 Mg Tab, 81 MG PO DAILY for 30 Days, MG 12/01/17 Lisinopril (Lisinopril) 40 Mg Tab, 40 MG PO DAILY for 30 Days, MG 12/01/17 Mode of Arrival: Wheelchair Past Medical History PAST MEDICAL HISTORY: Anemia, Angina, CHF, COPD, DM, GERD, High Lipids, HTN, Kidney Stones, [place] Past Medical History (Other): Osteomyelitis right foot Surgical History: BTL, , Hernia Repair, Pacemaker, PTCA, 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 Family History Family History: No family hx of Cancer, No family hx of DM, No family hx of Heart vannessa, Family hx of HTN Social History Smoker: Non-Smoker Alcohol: Denies ETOH Use Drugs: Denies Drug Use Lives In: Home Constitutional: denies: chills, diaphoresis, fatigue, fever, malaise, sweats, weakness, others EENTM: denies: blurred vision, double vision, ear bleeding, ear discharge, ear drainage, ear pain, ear ringing, eye pain, eye redness, hearing loss, mouth pain, mouth swelling, nasal discharge, nose bleeding, nose congestion, nose pain, photophobia, tearing, throat pain, throat swelling, voice changes, others Respiratory: denies: cough, hemoptysis, orthopnea, SOB at rest, shortness of breath, SOB with excertion, stridor, wheezing, others Cardiovascular: denies: chest pain, dizzy spells, diaphoresis, Dyspnea on exertion, edema, irregular heart beat, left arm pain, lightheadedness, palpitations, PND, syncope, others Gastrointestinal: denies: abdomen distended, abdominal pain, blood streaked bowels, constipated, diarrhea, dysphagia, difficulty swallowing, hematemesis, melena, nausea, poor appetite, poor fluid intake, rectal bleeding, rectal pain, vomiting, others Genitourinary: denies: abnormal vagina bleeding, burning, dyspareunia, dysuria, flank pain, frequency, hematuria, incontinence, pain, , vagina discharge, urgency, others Neurological: denies: dizziness, fainting, headache, left sided numbness, left sided weakness, numbness, paresthesia, pre-existing deficit, right sided numbness, right sided weakness, seizure, speech problems, tingling, tremors, weakness, others Musculoskeletal: denies: back pain, gout, joint pain, joint swelling, muscle pain, muscle stiffness, neck pain, others Integumetry: reports: others (As stated in HPI) Allergic/Immunocompromised: denies: Difficulty Healing, Frequent Infections, Hives, Itching, others Hematologic/Lymphatic: denies: anemia, blood clots, easy bleeding, easy bruising, swollen glands, others Endocrine: denies: excessive hunger, excessive sweating, excessive thirst, excessive urination, flushing, intolerance to cold, intolerance to heat, unexplained weight gain, unexplained weight loss, others Psychiatric: denies: anxiety, bipolar disorder, depression, hopeless, panic disorder, schizophrenia, sleepless, suicidal, others Physical Exam General Appearance: No Apparent Distress, Obese HEENT: PERRL/EOMI Neck: Full Range of Motion, Non-Tender, Normal Respiratory: Chest Non-Tender, Lungs Clear, No Accessory Muscle Use, No Respiratory Distress, Normal Breath Sounds Cardiovascular: No Murmur, No Gallop, Regular Rate/Rhythm Breast Exam: Deferred Gastrointestinal: NOT DONE Genitalia: Deferred Pelvic: Deferred Rectal: Deferred Extremities: Normal capillary refill, Normal range of motion Neurologic: Alert, No Motor Deficits, Normal Affect, Normal Mood, No Sensory Deficits Cerebellar Function: Normal Reflexes: Normal Skin: Dry, Normal Color, Warm, Other (PICC line noted to left arm without any s igns of infection appreciated) Peripheral Pulses: 2+ Radial (R), 2+ Radial (L), 2+ Brachial (R), 2+ Brachial (L) Lymphatic: No Adenopathy Was a procedure done? Was a procedure done?: No Sedation Sedation?: No Differential Diagnosis (INTG) Differential Diagnosis: Abscess Differential Diagnosis: Neurovascular Injury Differential Diagnosis: Cellulitis, Other (DVT, sepsis) X-Ray, Labs, Meds, VS Vital Signs Date Time Temp Pulse Resp B/P (MAP) Pulse Ox O2 Delivery O2 Flow Rate FiO2 01/31/25 17:21 98.4 75 13 163/81 95 98.4 Patient recently completed IV therapy and is requesting to have PICC line removed in ER. Patient was also sent by PCP Dr. Nicholson today for PICC line removal PICC line removed by RN at bedside without complication Patient asymptomatic during ER visit/prior to discharge Post PICC line removal instructions were discussed and advised Advised to follow up with PCP in 1-2 days Patient verbalized understanding and agreeable with current plan of care Advised to return to ER immediately if symptoms worsen Time of 1ST Reevaluation: 18:20 Reevaluation 1ST: N/A Patient Education/Counseling: Diagnosis, Treatment, Prognosis, Need For Follow Up Family Education/Counseling: No Family Present SEPSIS Sepsis Screen Date sepsis recognized/suspect: Jan 31, 2025 Time Sepsis recognized/suspect: 1720 Recent Procedure: No On Antibiotic Therapy: No Respiratory Rate >20: No Heart Rate >90: No Temp<36 C (96.8 F) or >38.3 C: No SBP <90 or MAP <65 mmHG: No New Acute Mental Status Change: No Is the patient on CPAP, BIPAP,: No Vital Signs Date Time Temp Pulse Resp B/P (MAP) Pulse Ox O2 Delivery O2 Flow Rate FiO2 01/31/25 17:21 98.4 75 13 163/81 95 98.4 Departure 1 Departure Time of Disposition: 18:38 Impression: Primary Impression: PIC line (peripherally inserted central catheter) removal Disposition: HOME / SELF CARE / HOMELESS Condition: Stable Discharged With: Friend Critical Care Note Critical Care Time?: No Stability Stability form required: No Heart Score Heart Score: Heart Score Response (Comments) Value History N/A 0 EKG N/A 0 Age N/A 0 Risk Factors N/A 0 Troponin N/A 0 Total 0 KRYSTINA CASTELLANOS Jan 31, 2025 18:45
[2025-01-31 18:52] VITALS: BP 148/76; PULSE 88; RESP 16; TEMP 98.7; O2SAT 97
== END 2025-01-31 18:54 | disposition home or self-care (01) ==
LOC: ER 17:19
DX: Z45.2 Encounter for adjustment and management of vascular access device (principal); I11.0 Hypertensive heart disease with heart failure; I50.9 Heart failure, unspecified; E11.69 Type 2 diabetes mellitus with other specified complication; E78.5 Hyperlipidemia, unspecified; J44.9 Chronic obstructive pulmonary disease, unspecified; K21.9 Gastro-esophageal reflux disease without esophagitis; I21.9 Acute myocardial infarction, unspecified; Z98.890 Other specified postprocedural states; Z98.51 Tubal ligation status; Z95.0 Presence of cardiac pacemaker; Z79.899 Other long term (current) drug therapy; Z79.84 Long term (current) use of oral hypoglycemic drugs; Z79.82 Long term (current) use of aspirin; Z79.02 Long term (current) use of antithrombotics/antiplatelets

== ENCOUNTER 2025-02-10 12:47 | Emergency (ER) | payer MEDICAID ==
[~2025-02-10] VITALS: Ht 162.6 cm; Wt 91.0 kg
--- NOTE | 2025-02-10 13:20 | ED.PDOC ---
History of Present Illness(SKN HPI Comments THIS IS A 54-YEAR-OLD FEMALE WHO PRESENTS TO THE ED VIA WHEELCHAIR WITH A C/C OF RASH TO RIGHT BACK FOR X4 DAYS. PATIENT REPORTS HAVING PAINFUL SKIN RASH WITH ASSOCIATED BURNING SENSATION ON RIGHT MIDDLE BACK TO RIGHT FLANK REGION. PATIENT HAS NO FURTHER COMPLAINTS AT THIS TIME AND OTHERWISE DENIES FURTHER ASSOCIATED SYMPTOMS OF FEVER, CHILLS, GENERAL WEAKNESS, NAUSEA, VOMITING, FOR DIZZINESS. PATIENT IS ALERT, ORIENTED X 4, AND HAS STEADY GAIT. Chief Complaint: Rash Time Seen by MD: 13:09 Primary Care Provider: MAIN History of Present Illness: Nurses Notes, Medications, Allergies Allergies: Coded Allergies: Latex (Verified Allergy, Unknown, 10/02/10) Uncoded Allergies: ADHESIVE TAPE (Allergy, Unknown, 11/24/20) Home Meds Active Scripts Tramadol HCl (Tramadol HCl) 50 Mg Tab, 50 MG PO TID, #20 TAB Prov:JODY LYNN 02/10/25 Triamcinolone Acetonide (Triamcinolone Acetonide) 0.025 % Cre, 1 APPLIC TOP BID, #30 GRAMS Prov:JODY LYNN 02/10/25 Acyclovir (Acyclovir) 800 Mg Tab, 800 MG PO 5XD, #35 TAB Prov:JODY LYNN 02/10/25 Oxycodone W/ Acetaminophen (Percocet 5/325MG) 1 Tab Tb, 1 TAB PO TID for 5 Days, #15 TAB Prov:DANIEL QUIJANO MD 01/20/25 Empagliflozin (Jardiance) 25 Mg Tab, 25 MG PO QAM for 30 Days, #30 TAB Prov:BRANDIN STEEL MD 05/19/21 Ergocalciferol (VITAMIN D 15501 UNIT) 50,000 [place], [address] UNIT PO Q7D for 10 Days, #10 CAP Prov:BRANDIN STEEL MD 05/19/21 Furosemide (Furosemide) 40 Mg Tab, 1 TAB PO DAILY, #30 TAB 0 Refills Prov:ABDIEL GREENBERG MD 08/01/19 Doxycycline Hyclate (DOXYCYCLINE HYCLATE) 100 Mg Tab, 1 TAB PO BID, #14 TAB Prov:ABDIEL GREENBERG MD 08/01/19 Reported Medications Clopidogrel Bisulfate (CLOPIDOGREL) 75 Mg Tab, 75 MG PO DAILY for 30 Days, MG 6/12/18 Methocarbamol (Methocarbamol) 500 Mg Tab, 500 MG PO BID for FOR MUSCLE SPASM for 30 Days, MG 12/01/17 Diphenhydramine Hcl (Benadryl Allergy) 25 Mg Cap, 25 MG PO Q4HP PRN for FOR ITCHING, CAP 12/01/17 Nitroglycerin (NTROSTAT SUBLINGUAL) 0.4 Mg Sl, 0.4 MG SL PRN PRN for FOR CHEST PAIN *MAY REPEAT EVERY 5 MINUTES X 3 TOTAL IF NO RELIEF, INITIATE ANALGESIC THERAPY. NOTIFY PHYSICIAN *Do not crush. 12/01/17 Insulin Aspart Protamine & Asp (Novolog Mix 70/30 Prefill (70-30) 100 Unit/ml) 1 Inj Inj, 1 INJ SC BID, INJ 12/01/17 Lorazepam (Ativan) 0.5 Mg Tab, 1 TAB PO QHSP for ANXIETY, #30 TAB 12/01/17 Ondansetron (Zofran) 4 Mg Tab, 4 MG PO Q4HP PRN for NAUSEA / VOMITING, MG 12/01/17 Insulin Detemir (Levemir) Inj, 20 SC QHSP, INJ 12/01/17 Albuterol Sulfate (Proair Respiclick) 108 Mcg/Act Aer, 108 MCG IN TIDPRN PRN for SHORTNESS OF BREATH, AER 12/01/17 Potassium Chloride (POTASSIUM CHLORIDE CR) 10 Meq Tb, 8 MEQ PO DAILY 12/01/17 Docusate Sodium (Colace) 100 Mg Cap, 100 MG PO BID, CAP 12/01/17 Hydrocodone-Acetaminophen (Hydrocodone Bitartrate/AC 7.5-325 mg) 1 Tab Tab, 1 TAB PO Q6HP PRN for MODERATE PAIN, TAB 12/01/17 Gabapentin (Gabapentin) 300 Mg Cap, 300 MG PO TID for 30 Days, MG 12/01/17 Glipizide (Glipizide) 10 Mg Tab, 10 MG PO DAILY for 30 Days, MG 12/01/17 Aspirin (Aspir-Low) 81 Mg Tab, 81 MG PO DAILY for 30 Days, MG 12/01/17 Lisinopril (Lisinopril) 40 Mg Tab, 40 MG PO DAILY for 30 Days, MG 12/01/17 Information Source: Patient Mode of Arrival: Wheelchair Severity: Moderate Timing: Days Duration: Since onset Prehospital treatment: None Location: Back, Other (HIP ) Mechanism: Spontaneous Onset Object: None Condition of Object: None Wound Type: Papule Immunization Status of Animal: Current Tetanus: UTD Associated Signs and Symptoms: Redness, Pain, Other (RASH ) Past Medical History PAST MEDICAL HISTORY: Anemia, Angina, CHF, COPD, DM, GERD, High Lipids, HTN, Kidney Stones, [place] Surgical History: BTL, , Hernia Repair, Pacemaker, PTCA, 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 Family History Family History: No family hx of Cancer, No family hx of DM, No family hx of Heart vannessa, Family hx of HTN Social History Smoker: Non-Smoker Alcohol: Denies ETOH Use Drugs: Denies Drug Use Lives In: Home Constitutional: denies: chills, diaphoresis, fatigue, fever, malaise, sweats, weakness, others EENTM: denies: blurred vision, double vision, ear bleeding, ear discharge, ear drainage, ear pain, ear ringing, eye pain, eye redness, hearing loss, mouth pain, mouth swelling, nasal discharge, nose bleeding, nose congestion, nose pain, photophobia, tearing, throat pain, throat swelling, voice changes, others Respiratory: denies: cough, hemoptysis, orthopnea, SOB at rest, shortness of breath, SOB with excertion, stridor, wheezing, others Cardiovascular: denies: chest pain, dizzy spells, diaphoresis, Dyspnea on exertion, edema, irregular heart beat, left arm pain, lightheadedness, palpitations, PND, syncope, others Gastrointestinal: denies: abdomen distended, abdominal pain, blood streaked bowels, constipated, diarrhea, dysphagia, difficulty swallowing, hematemesis, melena, nausea, poor appetite, poor fluid intake, rectal bleeding, rectal pain, vomiting, others Genitourinary: denies: abnormal vagina bleeding, burning, dyspareunia, dysuria, flank pain, frequency, hematuria, incontinence, pain, , vagina discharge, urgency, others Neurological: denies: dizziness, fainting, headache, left sided numbness, left sided weakness, numbness, paresthesia, pre-existing deficit, right sided n umbness, right sided weakness, seizure, speech problems, tingling, tremors, weakness, others Musculoskeletal: denies: back pain, gout, joint pain, joint swelling, muscle pain, muscle stiffness, neck pain, others Integumetry: reports: lesions, rash; denies: bruises, change in color, change in hair/nails, dryness, laceration, lumps, wounds, others Allergic/Immunocompromised: denies: Difficulty Healing, Frequent Infections, Hives, Itching, others Hematologic/Lymphatic: denies: anemia, blood clots, easy bleeding, easy bruising, swollen glands, others Endocrine: denies: excessive hunger, excessive sweating, excessive thirst, excessive urination, flushing, intolerance to cold, intolerance to heat, unexplained weight gain, unexplained weight loss, others Psychiatric: denies: anxiety, bipolar disorder, depression, hopeless, panic disorder, schizophrenia, sleepless, suicidal, others All Other Systems: Reviewed and Negative Physical Exam General Appearance: Obese HEENT: Normal ENT Inspection, PERRL/EOMI, Pharynx Normal, TMs Normal Neck: Full Range of Motion, Non-Tender, Normal, Normal Inspection Respiratory: Chest Non-Tender, Lungs Clear, No Accessory Muscle Use, No Respiratory Distress, Normal Breath Sounds Cardiovascular: No Edema, No JVD, No Murmur, No Gallop, Normal Peripheral Pulses, Regular Rate/Rhythm Breast Exam: Deferred Gastrointestinal: No Organomegaly, Non Tender, No Pulsatile Mass, Normal Bowel Sounds, Soft Genitalia: Deferred Pelvic: Deferred Rectal: Deferred Extremities: No calf tenderness, Normal capillary refill, Normal inspection, Normal range of motion, Non-tender, No pedal edema Musculoskeletal : Location: Right Extremity Location: Back Apperance: Tenderness (WITH VESICLE SKIN RASH ON RIGHT MIDDLE BACK TO RIGHT FLANK REGION. 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 ), Warm Peripheral Pulses: 2+ carotid (R), 2+ carotid (L), 2+ femoral (L), 2+ dorsalis pedis (R), 2+ Radial (R), 2+ Radial (L) Lymphatic: No Adenopathy Was a procedure done? Was a procedure done?: No Differential Diagnosis (INTG) Differential Diagnosis: Cellulitis, Insect Envenomation, Other (SHINGLES ) Differential Diagnosis: Atopic dermatitis, Contact Dermatitis, Herpes Zoster/Simplex, Impetigo X-Ray, Labs, Meds, VS Vital Signs Date Time Temp Pulse Resp B/P (MAP) Pulse Ox O2 Delivery O2 Flow Rate FiO2 02/10/25 12:51 98.8 76 18 135/69 93 98.8 X-Ray, Labs, Meds, VS Comment EXTERNAL MEDICAL RECORDS REVIEWED: [NONE] INDEPENDENT HISTORIANS: [NONE] SOCIAL DETERMINANTS OF HEALTH: [NONE] LABS ORDERED: NONE REVIEWED AND INTERPRETED RESULTS: NONE IMAGING ORDERED: NONE TREATMENTS ORDERED: [place] 5/325MG PROCEDURES PERFORMED: NONE CRITICAL CARE TIME: NONE I HAVE DISCUSSED THE PATIENT WITH THE ATTENDING PHYSICIAN, DR. QUIJANO, AND HE AGREES WITH THE PATIENT'S PLAN OF CARE AND DISPOSITION. BASED ON HISTORY OF PRESENT ILLNESS, AND PHYSICAL EXAM, PATIENT WILL BE DISCHARGED HOME. DISCUSSED PLAN FOR DISCHARGE HOME WITH RX [ACYCLOVIR 800MG, ULTRAM AND TRIAMCINOLONE 0.1% CREAM]. MEDICATION WARNINGS GIVEN. SHARED DECISION MAKING: DISCUSSED WITH PATIENT THAT THEIR WORKUP WAS NORMAL. PATIENT INSTRUCTED TO FOLLOW UP WITH PRIMARY CARE PROVIDER IN 1-2 DAYS FOR RE- EVALUATION OF SYMPTOMS. PATIENT VERBALIZES UNDERSTANDING TO RETURN TO ED FOR NEW OR WORSENING SYMPTOMS OR IF FOLLOW UP WITH PCP CANNOT BE OBTAINED. PATIENT FEELS COMFORTABLE GOING HOME AT THIS TIME. ALL QUESTIONS ADDRESSED AT TIME OF DISCHARGE. Images Reviewed?: Images reviewed and evaluated by me Time of 1ST Reevaluation: 13:50 Reevaluation 1ST: Improved Patient Education/Counseling: Diagnosis, Treatment, Need For Follow Up Family Education/Counseling: Diagnosis, Treatment, Need For Follow Up Medical Screening: No EMC Exist At This Time SEPSIS Sepsis Screen Date sepsis recognized/suspect: Feb 10, 2025 Time Sepsis recognized/suspect: 1254 Recent Procedure: No On Antibiotic Therapy: No Respiratory Rate >20: No Heart Rate >90: No Temp<36 C (96.8 F) or >38.3 C: No SBP <90 or MAP <65 mmHG: No New Acute Mental Status Change: No Is the patient on CPAP, BIPAP,: No Physician Orders Hydrocodone-Acet 5/325mg Tab ([place] 5/32 (02/10/25 13:30) Vital Signs Date Time Temp Pulse Resp B/P (MAP) Pulse Ox O2 Delivery O2 Flow Rate FiO2 02/10/25 12:51 98.8 76 18 135/69 93 98.8 Departure 1 Departure Time of Disposition: 13:50 Impression: Primary Impression: Herpes zoster Qualified Codes: B02.9 - Zoster without complications Disposition: HOME / SELF CARE / HOMELESS Condition: Stable Additional Instructions: FOLLOW-UP WITH PCP IN 1 TO 2 DAYS. TAKE MEDICATIONS PRESCRIBED. RETURN TO ED FOR ANY NEW OR WORSENING SYMPTOMS. e-Prescriptions Tramadol HCl (Tramadol HCl) 50 Mg Tab 50 MG PO TID, #20 TAB Prov: JODY LYNN 02/10/25 Triamcinolone Acetonide (Triamcinolone Acetonide) 0.025 % Cre 1 APPLIC TOP BID, #30 GRAMS Prov: JODY LYNN 02/10/25 Acyclovir (Acyclovir) 800 Mg Tab 800 MG PO 5XD, #35 TAB Prov: JODY LYNN 02/10/25 Discharged With: Self, Relative Critical Care Note Critical Care Time?: No Stability Stability form required: No Heart Score Heart Score: Heart Score Response (Comments) Value History N/A 0 EKG N/A 0 Age N/A 0 Risk Factors N/A 0 Troponin N/A 0 Total 0 I personally scribed for JODY LYNN ([email or web address]) on 02/10/25 at 13:20. Electronically submitted by Polly Howard ([email or web address]). I personally scribed for OJDY LYNN ([email or web address]) on 02/10/25 at 13:24. Electronically submitted by Polly Howard ([email or web address]). I personally scribed for JODY LYNN ([email or web address]) on 02/10/25 at 13:25. Electronically submitted by Polly Howard ([email or web address]). JODY LYNN Feb 10, 2025 13:20
[2025-02-10] MEDS ORDERED: ACYC1TAB3 PO (13:23)
[2025-02-10] MEDS ORDERED: TRAM-626 PO (13:24)
[2025-02-10] MEDS ORDERED: TRIA0.02 TOP (13:24)
[2025-02-10] MEDS: HYDROcodone-ACET 5/325MG TAB PO ONE (13:27)
[2025-02-10 13:35] VITALS: BP 135/69; PULSE 76; RESP 18; TEMP 98.8; O2SAT 93
== END 2025-02-10 13:41 | disposition home or self-care (01) ==
LOC: ER 12:47
DX: B02.9 Zoster without complications (principal); I11.0 Hypertensive heart disease with heart failure; I50.9 Heart failure, unspecified; E11.9 Type 2 diabetes mellitus without complications; J44.9 Chronic obstructive pulmonary disease, unspecified; E78.5 Hyperlipidemia, unspecified; D64.9 Anemia, unspecified; K21.9 Gastro-esophageal reflux disease without esophagitis; Z79.82 Long term (current) use of aspirin; Z79.84 Long term (current) use of oral hypoglycemic drugs; Z79.899 Other long term (current) drug therapy; Z95.0 Presence of cardiac pacemaker; Z98.51 Tubal ligation status; Z98.890 Other specified postprocedural states

== ENCOUNTER 2025-02-10 21:53 | Inpatient (IN) | payer MEDICAID ==
[~2025-02-10] VITALS: Ht 167.6 cm; Wt 127.0 kg
[~2025-02-10 21:53] MED LIST changes: +ACYC1TAB3 PO; +TRAM-626 PO; +TRIA0.02 TOP
[2025-02-11 00:55] LABS: Hemoglobin 11.7 g/dL (12.2-16.2)
[2025-02-11 01:00] LABS: Hematocrit 38.1 % (36.0-46.0); Mean Corpuscular Hemoglobin 23.4 pg (28.0-32.0); Mean Corpuscular Volume 76.3 fL (80.0-100.0); Nucleated Red Blood Cells % 0.4 %
[2025-02-11 01:15] LABS: Alanine Aminotransferase 39 U/L (7-40); Albumin 3.7 g/dL (3.2-4.8); Anion Gap 9 (5-15); BUN/Creatinine Ratio 11.1 (10.0-20.0); Bilirubin, Total 0.5 mg/dL (0.2-1.0); Carbon Dioxide 25 mmol/L (20-31); Total Protein 6.6 g/dL (5.7-8.2)
[2025-02-11 01:22] LABS: Alkaline Phosphatase 187 U/L (46-116); Blood Urea Nitrogen 31 mg/dL (9-23); Calcium 8.3 mg/dL (8.7-10.4); Chloride 93 mmol/L (98-107); Sodium 127 mmol/L (136-145)
[2025-02-11 01:24] LABS: Glucose 614 mg/dL (74-106); Potassium 5.7 mmol/L (3.5-5.1)
--- NOTE | 2025-02-11 02:01 | DVH ---
EXAM: CT HEAD WITHOUT CONTRAST INDICATION: fall TECHNIQUE: CT of the head without intravenous contrast. Radiation Dose : 1. Head: CT Dose: CTDI volume is 57.01 mGy. Dose-length product is 1.71 mGy*cm The dose indicators for CT are the volume Computed Tomography (CT) Dose Index (CTDIvol) and the Dose Length Product (DLP), and are measured in units of mGy and mGy-cm, respectively. These indicators are not patient dose, but values generated from the CT scanner acquisition factors. The report includes radiation exposure data for exposures received during this examination. COMPARISON: HEAD WITHOUT CONTRAST on DOS: 05/16/21 FINDINGS: Brain: No acute hemorrhage, mass effect, or cerebral edema. CSF Spaces: Size and morphology within normal limits. Bones/Soft Tissues: No acute findings. Orbits/Sinuses/Mastoids: Unremarkable as visualized. IMPRESSION: 1. No acute intracranial abnormality. Radiation optimization: All CT scans at this facility use at least one of these dose optimization ricci hniques: automated exposure control mA and/or kV adjustment per patient size (includes targeted exam s where dose is matched to clinical indication) or iterative reconstruction.
--- NOTE | 2025-02-11 02:02 | DVH ---
CLINICAL INDICATION: FALL INJURY/L KNEE PAIN TECHNIQUE: 3 views XY L KNEE 3V XRAY Comparison: R KNEE 3V XRAY on DOS: 07/31/21 FINDINGS/IMPRESSION: : No evidence of acute fracture or joint malalignment. Diffuse osteopenia. Mild tricompartmental oste oarthrosis. Moderate to large joint effusion. Diffuse nonfocal subcutaneous stranding. Vascular calc ifications.
[2025-02-11] MEDS: SODIUM CHLORIDE 0.9% 1,000 ML IV ONE (02:30)
[2025-02-11] MEDS: SODIUM ZIRCONIUM CYCL 10 GM PAK PO ONE (02:30)
[2025-02-11] MEDS: ALBUTEROL SULF 2.5 MG/0.5ML(0.5%) NEB SOLN ONE (02:34)
[2025-02-11] MEDS: ALBUTEROL SULF 2.5 MG/0.5ML(0.5%) NEB SOLN NEB ONE (02:40)
--- NOTE | 2025-02-11 02:43 | ED.PDOC ---
History of Present Illness HPI Comments HPI: Discharged last June 2021, Final Diagnosis/Problems List Problem List/Assessment/Plan acute on chronic diastolic hf echo 20-25% ejection fraction, left heart cath #2020 normal, cardiology consult by Dr. Ellison and Dr. Ortega Aaron appreciated, Hyperlipidemia: Lipitor Uncontrolled diabetes: Insulin sliding scale Diabetic nephropathy vasculopathy and neuropathy ckd cad morbid obesity frequent hospital visits elevated troponin Noncompliance Initial Vitals BP: 103/64 HR: 75 RR: 18 O2: 96% Temp: 98.1 Past Medical History: Past Surgical History: Social History: Denies ETOH, smoking, and drug use. Medications: Allergies: HPI: Poor Historian. 54 -year-old female brought in by ambulance for evaluation. Patient herself denies any symptom. Patient called 911 for lift assist because she is morbidly obese and has problems with her extremities and she was not able to get into bed from the floor where she rolled out of bed to the floor attempting to lift her leg to the floor. No head injury or loss of consciousness. When ambulance arrived they told her you must go to the hospital. Patient states later that she was here in the hospital earlier and was evaluated and discharged for shingles. She took some Percocet for pain and Benadryl when she has some itchiness which made her feel weak and that is why she was unable to get herself into bed. We received a report that the patient having a left knee pain from the in jury/roll out of bed however patient herself denies any. REVIEW OF SYSTEMS: CONSTITUTIONAL: Denies acute: fever, diaphoresis, chills, generalized weakness. HEAD: Denies acute: headache, photophobia Eyes: Denies acute: Double vision, vision loss, eye pain, eye discharge. EARS: Denies acute: tinnitus, hearing loss, ear discharge, ear pain, THROAT: Denies acute: sore throat, swelling, difficulty swallowing , pain with swallowing, change in voice. NECK: Denies acute: neck pain, neck swelling, stiff neck. HEART: Denies acute : chest pain, palpitations, LUNGS: Denies acute: SOB, wheezing, cough, hemoptysis ABDOMEN: Denies acute: abdominal pain, Nausea, Vomiting, diarrhea, melena , hematemesis, hematochezia SKIN: Denies acute: rash, redness, lesions, itchiness. EXTREMITIES: Denies acute: calf pain, numbness, tingling, weakness, denies pain in extremity. Denies acute: Low back pain. Neuro: Denies acute: focal neurological deficit, motor or sensory focal neurological deficit, tremors, seizure like activity, confusion, dizziness, change in mental status, loss of bowel or bladder function, cauda equina like symptoms. : Denies acute: dysuria, hematuria, flank pain, increase in urinary frequency. PSYCH: Denies acute: hallucination, suicidal ideation, homicidal ideation. FEMALE: Denies acute: abnormal vaginal bleeding, foul odor, unusual discharge. PHYSICAL EXAM: General: -----mild---acute distress, awake and alert. Head: normocephalic, atraumatic. Neck: supple, trachea is midline, no swelling. Throat: Normal phonation. Eyes:, no erythema, no purulent discharge, no proptosis, no icterus. Heart: regular rate, regular rhythm, no significant murmur appreciated. Lungs: no apparent respiratory distress, Able to speak in full sentences. No wheezing, no rhonchi, no crackles. No stridors Clear to auscultation bilaterally. Abdomen: non tender to palpation, non distended, soft, no guarding, no rebound, + bowel sounds. Morbidly obese Neuro: Awake, Alert, oriented to name, self, situation, follows commands GCS=15. Speech is normal. Skin: no petechia, no purpura, no cyanosis, non-pale, not jaundice. Lower extremities: --trace bilateral - Pitting edema no deformity, no focal swelling, no calf TTP. Patient has chronic leg problems wearing a right ankle boot Makes eye contact. moves all four extremities. Face: no apparent facial droop. ED COURSE: DISCLAIMER: This medical document was created using an electronic medical record system with voice recognition software and computerized dictation system. Although this document has been carefully reviewed, there might still be some phonetic and typographical errors. Occasional wrong-word or "sound-alike" substitutions may have occurred due to the inherent limitations of voice recognition software. These areas are purely typographical due to imperfections of the software programs and do not reflect any compromise in the patient's medical care. Please read the chart carefully and recognize, using context, where these substitutions have occurred. Chief Complaint: Fall Injury Time Seen by MD: 02:20 Primary Care Provider: MAIN Reviewed Notes: Allergies Allergies: Coded Allergies: Latex (Verified Allergy, Unknown, 10/02/10) Uncoded Allergies: ADHESIVE TAPE (Allergy, Unknown, 11/24/20) Home Meds Active Scripts Tramadol HCl (Tramadol HCl) 50 Mg Tab, 50 MG PO TID, #20 TAB Prov:JODY LYNN 02/10/25 Triamcinolone Acetonide (Triamcinolone Acetonide) 0.025 % Cre, 1 APPLIC TOP BID, #30 GRAMS Prov:JODY LYNN 02/10/25 Acyclovir (Acyclovir) 800 Mg Tab, 800 MG PO 5XD, #35 TAB Prov:JODY LYNN 02/10/25 Oxycodone W/ Acetaminophen (Percocet 5/325MG) 1 Tab Tb, 1 TAB PO TID for 5 Days, #15 TAB Prov:DANIEL QUIJANO MD 01/20/25 Empagliflozin (Jardiance) 25 Mg Tab, 25 MG PO QAM for 30 Days, #30 TAB Prov:BRANDIN STEEL MD 05/19/21 Ergocalciferol (VITAMIN D 83813 UNIT) 50,000 [place], [address] UNIT PO Q7D for 10 Days, #10 CAP Prov:BRANDIN STEEL MD 05/19/21 Furosemide (Furosemide) 40 Mg Tab, 1 TAB PO DAILY, #30 TAB 0 Refills Prov:ABDIEL GREENBERG MD 08/01/19 Doxycycline Hyclate (DOXYCYCLINE HYCLATE) 100 Mg Tab, 1 TAB PO BID, #14 TAB Prov:ABDIEL GREENBERG MD 08/01/19 Reported Medications Clopidogrel Bisulfate (CLOPIDOGREL) 75 Mg Tab, 75 MG PO DAILY for 30 Days, MG 12/01/17 Methocarbamol (Methocarbamol) 500 Mg Tab, 500 MG PO BID for FOR MUSCLE SPASM for 30 Days, MG 12/01/17 Diphenhydramine Hcl (Benadryl Allergy) 25 Mg Cap, 25 MG PO Q4HP PRN for FOR ITCHING, CAP 12/01/17 Nitroglycerin (NTROSTAT SUBLINGUAL) 0.4 Mg Sl, 0.4 MG SL PRN PRN for FOR CHEST PAIN *MAY REPEAT EVERY 5 MINUTES X 3 TOTAL IF NO RELIEF, INITIATE ANALGESIC THERAPY. NOTIFY PHYSICIAN *Do not crush. 12/01/17 Insulin Aspart Protamine & Asp (Novolog Mix 70/30 Prefill (70-30) 100 Unit/ml) 1 Inj Inj, 1 INJ SC BID, INJ 12/01/17 Lorazepam (Ativan) 0.5 Mg Tab, 1 TAB PO QHSP for ANXIETY, #30 TAB 12/01/17 Ondansetron (Zofran) 4 Mg Tab, 4 MG PO Q4HP PRN for NAUSEA / VOMITING, MG 12/01/17 Insulin Detemir (Levemir) Inj, 20 SC QHSP, INJ 12/01/17 Albuterol Sulfate (Proair Respiclick) 108 Mcg/Act Aer, 108 MCG IN TIDPRN PRN for SHORTNESS OF BREATH, AER 12/01/17 Potassium Chloride (POTASSIUM CHLORIDE CR) 10 Meq Tb, 8 MEQ PO DAILY 12/01/17 Docusate Sodium (Colace) 100 Mg Cap, 100 MG PO BID, CAP 12/01/17 Hydrocodone-Acetaminophen (Hydrocodone Bitartrate/AC 7.5-325 mg) 1 Tab Tab, 1 TAB PO Q6HP PRN for MODERATE PAIN, TAB 12/01/17 Gabapentin (Gabapentin) 300 Mg Cap, 300 MG PO TID for 30 Days, MG 12/01/17 Glipizide (Glipizide) 10 Mg Tab, 10 MG PO DAILY for 30 Days, MG 12/01/17 Aspirin (Aspir-Low) 81 Mg Tab, 81 MG PO DAILY for 30 Days, MG 12/01/17 Lisinopril (Lisinopril) 40 Mg Tab, 40 MG PO DAILY for 30 Days, MG 12/01/17 Information Source: Patient Mode of Arrival: EMS Past Medical History PAST MEDICAL HISTORY: Anemia, Angina, CHF, COPD, DM, GERD, High Lipids, HTN, Kidney Stones, [place] Surgical History: BTL, , Hernia Repair, Pacemaker, PTCA, Tubal Ligation 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 Was a procedure done?: No X-Ray, Labs, Meds, VS Vital Signs Date Time Temp Pulse Resp B/P (MAP) Pulse Ox O2 Delivery O2 Flow Rate FiO2 02/11/25 02:40 18 98 Nasal Cannula* 2 28 02/11/25 01:57 75 14 121/34 (63) 86 02/10/25 22:01 98.1 75 18 103/64 96 98.1 Lab Test 02/11/25 01:42 02/11/25 00:23 Range/Units Troponin I High Sensitivity 30 29 </=34 ng/L White Blood Count 5.0 4.4-10.8 10^3/uL Red Blood Count 4.99 4.0-5.20 10^6/uL Hemoglobin 11.7 L 12.2-16.2 g/dL Hematocrit 38.1 36.0-46.0 % Mean Corpuscular Volume 76.3 L 80.0-100.0 fL Mean Corpuscular Hemoglobin 23.4 L 28.0-32.0 pg Mean Corpuscular Hemoglobin Concent 30.7 L 32.0-36.0 g/dL Red Cell Distribution Width 20.7 H 11.8-14.3 % Platelet Count 173 140-450 10^3/uL Mean Platelet Volume 9.3 6.9-10.8 fL Neutrophils (%) (Auto) 74.3 37.0-80.0 % Lymphocytes (%) (Auto) 14.4 10.0-50.0 % Monocytes (%) (Auto) 9.4 0.0-12.0 % Eosinophils (%) (Auto) 1.4 0.0-7.0 % Basophils (%) (Auto) 0.5 0.0-2.0 % Neutrophils # (Auto) 3.7 1.6-8.6 10 ^3/uL Lymphocytes # (Auto) 0.7 0.4-5.4 10 ^3/uL Monocytes # (Auto) 0.5 0-1.3 10 ^3/uL Eosinophils # (Auto) 0.1 0-0.8 10 ^3/uL Basophils # (Auto) 0 0-0.2 10 ^3/uL Nucleated Red Blood Cells 0.4 % Sodium Level 127 L 136-145 mmol/L Potassium Level 5.7 *H 3.5-5.1 mmol/L Chloride Level 93 L 98-107 mmol/L Carbon Dioxide Level 25 20-31 mmol/L Anion Gap 9 5-15 Blood Urea Nitrogen 31 H 9-23 mg/dL Creatinine 2.79 H 0.550-1.02 mg/dL Glomerular Filtration Rate Calc 20 >90 mL/min BUN/Creatinine Ratio 11.1 10.0-20.0 Serum Glucose 614 *H 74-106 mg/dL Lactic Acid Level 2.0 0.4-2.0 mmol/L Calcium Level 8.3 L 8.7-10.4 mg/dL Total Bilirubin 0.5 0.2-1.0 mg/dL Aspartate Amino Transferase (AST) 53 H 13-40 U/L Alanine Aminotransferase (ALT) 39 7-40 U/L Alkaline Phosphatase 187 H 46-116 U/L Total Protein 6.6 5.7-8.2 g/dL Albumin 3.7 3.2-4.8 g/dL Current Medications Medications (Trade) Dose Ordered Sig/Zehra Route Start Time Stop Time Status Last Admin Albuterol (Ventolin Medneb) 20 mg ONCE ONCE NEB 02/11/25 02:30 02/11/25 02:35 DC 02/11/25 02:40 [place] [address] Ph: [phone] DIAGNOSTIC IMAGING Diagnostic Imaging Report : [id number] Signed PATIENT: LILIANA KEITH I ACCT: [id number] UNIT: [id number] : 1970 LOC: ER ROOM / BED: / AGE / SEX: 54 / F ADM STATUS: REG ER SERVICE [id number] ORDERING PHYSICIAN: DUKE TREJO DO PROCEDURE(s): HWOCT - HEAD WITHOUT CONTRAST REASON: fall ORDER NUMBER(s): [id number], ACCESSION NUMBER(s): [id number] EXAM: CT HEAD WITHOUT CONTRAST INDICATION: fall TECHNIQUE: CT of the head without intravenous contrast. Radiation Dose : 1. Head: CT Dose: CTDI volume is 57.01 mGy. Dose-length product is 1.71 mGy*cm The dose indicators for CT are the volume Computed Tomography (CT) Dose Index (CTDIvol) and the Dose Length Product (DLP), and are measured in units of mGy and mGy-cm, respectively. These indicators are not patient dose, but values generated from the CT scanner acquisition factors. The report includes radiation exposure data for exposures received during this examination. COMPARISON: HEAD WITHOUT CONTRAST on DOS: 05/16/21 FINDINGS: Brain: No acute hemorrhage, mass effect, or cerebral edema. CSF Spaces: Size and morphology within normal limits. Bones/Soft Tissues: No acute findings. Orbits/Sinuses/Mastoids: Unremarkable as visualized. IMPRESSION: 1. No acute intracranial abnormality. Radiation optimization: All CT scans at this facility use at least one of these dose optimization techniques: automated exposure control mA and/or kV adjustment per patient size (includes targeted exams where dose is matched to clinical indication) or iterative reconstruction. ATED BY: ALAINA BORJA MD DICTATED DATE/TIME: 02/11/25158 SIGNED BY: ALAINA BORJA MD SIGNED DATE/TIME: 02/11/25158 CC: [place] [address] Ph: [phone] DIAGNOSTIC IMAGING Diagnostic Imaging Report : [id number] Signed PATIENT: LILIANA KEITH I ACCT: [id number] UNIT: [id number] : 1970 LOC: ER ROOM / BED: / AGE / SEX: 54 / F ADM STATUS: REG ER SERVICE ORDERING PHYSICIAN: DUKE TREJO DO PROCEDURE(s): LKNE3 - L KNEE 3V XRAY REASON: FALL INJURY/L KNEE PAIN ORDER NUMBER(s): [id number], ACCESSION NUMBER(s): [id number] CLINICAL INDICATION: FALL INJURY/L KNEE PAIN TECHNIQUE: 3 views XY L KNEE 3V XRAY Comparison: R KNEE 3V XRAY on DOS: 07/31/21 FINDINGS/IMPRESSION: : No evidence of acute fracture or joint malalignment. Diffuse osteopenia. Mild tricompartmental osteoarthrosis. Moderate to large joint effusion. Diffuse nonfocal subcutaneous stranding. Vascular calcifications. ATED BY: ALAINA OBRJA MD DICTATED DATE/TIME: 02/11/25158 SIGNED BY: ALAINA BORJA MD SIGNED DATE/TIME: 02/11/25158 CC: Time of 1ST Reevaluation: 02:57 Reevaluation 1ST: Unchanged Patient Education/Counseling: Diagnosis, Treatment Family Education/Counseling: No Family Present SEPSIS Sepsis Screen Date sepsis recognized/suspect: Feb 10, 2025 Time Sepsis recognized/suspect: 2200 Recent Procedure: No On Antibiotic Therapy: No Respiratory Rate >20: No Heart Rate >90: No Temp<36 C (96.8 F) or >38.3 C: No SBP <90 or MAP <65 mmHG: No New Acute Mental Status Change: No Is the patient on CPAP, BIPAP,: No Physician Orders Head Without Contrast (02/11/25 00:13) Urinalysis (02/11/25 00:13) L Knee 3v Xray (02/11/25 00:13) Sodium Chloride 0.9% (02/11/25 02:30) Potassium (02/11/25 06:26) Vital Signs Date Time Temp Pulse Resp B/P (MAP) Pulse Ox O2 Delivery O2 Flow Rate FiO2 02/11/25 02:40 18 98 Nasal Cannula* 2 28 02/11/25 01:57 75 14 121/34 (63) 86 02/10/25 22:01 98.1 75 18 103/64 96 98.1 Laboratory Tests Test 02/11/25 00:23 Lactic Acid Level 2.0 mmol/L (0.4-2.0) White Blood Count 5.0 10^3/uL (4.4-10.8) Medications Medications Dose Ordered Sig/Zehra Route Start Time Stop Time Status Last Admin Dose Admin Albuterol 20 mg ONCE ONCE NEB 02/11/25 02:30 02/11/25 02:35 DC 02/11/25 02:40 Departure 1 Departure Time of Disposition: 02:43 Impression: Primary Impression: Hyperkalemia Additional Impressions: Uncontrolled diabetes mellitus with hyperglycemia Acute renal failure Fall Disposition: 09 ADMITTED INPATIENT Admit to: Tele Condition: Guarded Discharged With: Self Critical Care Note Critical Care Time?: No I personally scribed for DUKE TREJO DO ([facility]) on 02/11/25 at 02:43. Electronically submitted by Tucker Ho ([facility] I personally scribed for DUKE TREJO DO ([facility]) on 02/11/25 at 02:58. Electronically submitted by Tucker Ho ([facility] I personally scribed for DUKE TREJO DO ([facility]) on 02/11/25 at 03:03. Electronically submitted by Tucker Ho ([facility] DUKE TREJO DO Feb 11, 2025 02:43
[2025-02-11] MEDS ORDERED: DOCUSATE SOD 100 MG CAP PO PRN (04:00)
[2025-02-11] MEDS ORDERED: ONDANSETRON HCL 4 MG/2 ML VIAL IV PRN (04:00)
[2025-02-11] MEDS ORDERED: DEXTROSE (50%) 50ML SYRG IV PRN (04:00)
[2025-02-11] MEDS ORDERED: HYDROcodone-ACET 5/325MG TAB PO PRN (04:00)
[2025-02-11] MEDS ORDERED: ACETAMINOPHEN 325 MG TAB PO PRN (04:00)
[2025-02-11] MEDS ORDERED: NITROGLYCERIN 0.4 MG SL TAB SL PRN (04:00)
[2025-02-11] MEDS ORDERED: MORPHINE SULFATE INJ 2 MG/ml SYRG IV PRN (04:00)
--- NOTE | 2025-02-11 04:00 | DVHHP2 ---
History of Present Illness Reason for Visit: Hyperkalemia History of Present Illness Patient is a 54-year-old female morbidly obese with multiple past medical history including COPD, GERD, hypertension, CHF, and hyperlipidemia who presented to [facility] ED for evaluation of fall injury. Patient called 911 for lift assist because she has problems with her extremities, not able to get into bed from the floor where she rolled out of bed when attempting to lift her leg off the floor. When EMS arrived on the scene, she was instructed to go to the hospital. Patient reports she was recently hospitalized in this hospital and was evaluated and discharged for singles. She is currently on Percocet for pain and Benadryl for itching which she believes make her feel weak and the reason why she was unable to get herself into bed. Patient was seen and evaluated in the ED, laboratory data shows WBC 5.0, hemoglobin 11.7, hematocrit 38.1, platelets 173, sodium 127, potassium 5.7, BUN 31, creatinine 2.79, GFR 20, glucose 614, calcium 8.3, troponin 30, AST 53, ALT 39, alkaline phos 187, blood pressure 121/72, heart rate 75, temperature 98.1 F, O2 saturation 98% on oxygen. Head CT showed no acute intracranial abnormality. Please see medication orders section in the computer. On my assessment, patient denied chest pain, no headache, no dizziness no loss of consciousness, no shortness of breaths, no nausea, no vomiting, no fever, no chills. Patient was admitted for further evaluation and medical management. Past Medical History Anemia, Angina, CHF, COPD, DM, GERD, High Lipids, HTN, Kidney Stones, ID, Ovarian Cysts Past Surgical History BTL, , Hernia Repair, Pacemaker, PTCA, Tubal Ligation Family History Reviewed, noncontributory to the management of this case. Past Social History The patient lives at home, denies smoking, alcohol or illicit drugs abuse. Review of Systems Constitutional: Yes: Weakness; No: Fever, Chills, Sweats, Malaise, Other Eyes: No: Pain, Vision change, Conjunctivae inflammation, Eyelid inflammation, Other, Redness ENT: No: Ear pain, Ear discharge, Nose pain, Nose discharge, Nose congestion, Mouth pain, Mouth swelling, Throat pain, Throat swelling, Other Respiratory: No: Cough, Dry, Shortness of breath, SOB with excertion, Wheezing, Hemoptysis, Pleuritic Pain, Sputum, Wheezing, Other Cardiovascular: No: Chest Pain, Palpitations, Orthopnea, Paroxysmal Noc. Dyspnea, Edema, Lt Headedness, Other Gastrointestinal: No: Nausea, Vomiting, Abdominal Pain, Diarrhea, Constipation, Melena, Hematochezia, Other Genitourinary: No Dysuria, No Frequency, No Incontinence, No Hematuria, No Retention, No Other Musculoskeletal: leg pain (Right); No: other, neck pain, shoulder pain, arm pain, back pain, hand pain, foot pain Skin: Other (Lower extremity nonhealing wound); No: Rash, Lesions, Jaundice, Bruising Neurological: No: Weakness, Numbness, Incoordination, Change in speech, Confusion, Seizures, Other Allergies: Coded Allergies: Latex (Verified Allergy, Unknown, 10/02/10) Uncoded Allergies: ADHESIVE TAPE (Allergy, Unknown, 11/24/20) Exam Vital Signs Vital Signs Date Time Temp Pulse Resp B/P (MAP) Pulse Ox O2 Delivery O2 Flow Rate FiO2 02/11/25 02:40 18 98 Nasal Cannula* 2 28 02/11/25 01:57 75 121/34 (63) 02/10/25 22:01 98.1 98.1 General Appearance: Alert, Oriented X3, Cooperative, No acute distress HEENT: Atraumatic, PERRLA, EOMI, Mucous membr. moist/pink Respiratory: Normal air movement Cardiovascular: Regular rate, Normal S1, Normal S2, No murmurs Abdominal: Normal bowel sounds, Soft, No tenderness, No hepatospenomegaly, No masses Extremities: No clubbing, No cyanosis, No edema, Normal pulses, Other (Bilateral lower extremity tenderness) Skin: No rashes, No significant lesion Neuro: Normal speech, Normal tone, Sensation intact, Cranial nerves 3-12 NL, Reflexes 2+, Other (Generalized weakness) Psych/Mental Status: Mental status NL, Mood NL Labs/Xrays Labs Test 02/11/25 01:42 02/11/25 00:23 Range/Units Troponin I High Sensitivity 30 </=34 ng/L White Blood Count 5.0 4.4-10.8 10^3/uL Red Blood Count 4.99 4.0-5.20 10^6/uL Hemoglobin 11.7 L 12.2-16.2 g/dL Hematocrit 38.1 36.0-46.0 % Mean Corpuscular Volume 76.3 L 80.0-100.0 fL Mean Corpuscular Hemoglobin 23.4 L 28.0-32.0 pg Mean Corpuscular Hemoglobin Concent 30.7 L 32.0-36.0 g/dL Red Cell Distribution Width 20.7 H 11.8-14.3 % Platelet Count 173 140-450 10^3/uL Mean Platelet Volume 9.3 6.9-10.8 fL Neutrophils (%) (Auto) 74.3 37.0-80.0 % Lymphocytes (%) (Auto) 14.4 10.0-50.0 % Monocytes (%) (Auto) 9.4 0.0-12.0 % Eosinophils (%) (Auto) 1.4 0.0-7.0 % Basophils (%) (Auto) 0.5 0.0-2.0 % Neutrophils # (Auto) 3.7 1.6-8.6 10 ^3/uL Lymphocytes # (Auto) 0.7 0.4-5.4 10 ^3/uL Monocytes # (Auto) 0.5 0-1.3 10 ^3/uL Eosinophils # (Auto) 0.1 0-0.8 10 ^3/uL Basophils # (Auto) 0 0-0.2 10 ^3/uL Nucleated Red Blood Cells 0.4 % Sodium Level 127 L 136-145 mmol/L Potassium Level 5.7 *H 3.5-5.1 mmol/L Chloride Level 93 L 98-107 mmol/L Carbon Dioxide Level 25 20-31 mmol/L Anion Gap 9 5-15 Blood Urea Nitrogen 31 H 9-23 mg/dL Creatinine 2.79 H 0.550-1.02 mg/dL Glomerular Filtration Rate Calc 20 >90 mL/min BUN/Creatinine Ratio 11.1 10.0-20.0 Serum Glucose 614 *H 74-106 mg/dL Lactic Acid Level 2.0 0.4-2.0 mmol/L Calcium Level 8.3 L 8.7-10.4 mg/dL Total Bilirubin 0.5 0.2-1.0 mg/dL Aspartate Amino Transferase (AST) 53 H 13-40 U/L Alanine Aminotransferase (ALT) 39 7-40 U/L Alkaline Phosphatase 187 H 46-116 U/L Total Protein 6.6 5.7-8.2 g/dL Albumin 3.7 3.2-4.8 g/dL PATIENT: LILIANA KEITH IACCT: [id number] UNIT: [id number] : 1970 LOC: ER ROOM / BED: / AGE / SEX: 54 / F ADM STATUS: REG ER SERVICE [id number] ORDERING PHYSICIAN: DUKE TREJO DO PROCEDURE(s): HWOCT - HEAD WITHOUT CONTRAST REASON: fall ORDER NUMBER(s): [id number], ACCESSION NUMBER(s): [id number] EXAM: CT HEAD WITHOUT CONTRAST INDICATION: fall TECHNIQUE: CT of the head without intravenous contrast. Radiation Dose : 1. Head: CT Dose: CTDI volume is 57.01 mGy. Dose-length product is 1.71 mGy*cm The dose indicators for CT are the volume Computed Tomography (CT) Dose Index (CTDIvol) and the Dose Length Product (DLP), and are measured in units of mGy and mGy-cm, respectively. These indicators are not patient dose, but values generated from the CT scanner acquisition factors. The report includes radiation exposure data for exposures received during this examination. COMPARISON: HEAD WITHOUT CONTRAST on DOS: 05/16/21 FINDINGS: Brain: No acute hemorrhage, mass effect, or cerebral edema. CSF Spaces: Size and morphology within normal limits. Bones/Soft Tissues: No acute findings. Orbits/Sinuses/Mastoids: Unremarkable as visualized. IMPRESSION: 1. No acute intracranial abnormality. ORDERING PHYSICIAN: DUKE TREJO DO PROCEDURE(s): LKNE3 - L KNEE 3V XRAY REASON: FALL INJURY/L KNEE PAIN ORDER NUMBER(s): [id number], ACCESSION NUMBER(s): [id number] CLINICAL INDICATION: FALL INJURY/L KNEE PAIN TECHNIQUE: 3 views XY L KNEE 3V XRAY Comparison: R KNEE 3V XRAY on DOS: 07/31/21 FINDINGS/IMPRESSION: No evidence of acute fracture or joint malalignment. Diffuse osteopenia. Mild tricompartmental osteoarthrosis. Moderate to large joint effusion. Diffuse nonfocal subcutaneous stranding. Vascular calcifications. SEPSIS Sepsis Screen Date sepsis recognized/suspect: Feb 10, 2025 Time Sepsis recognized/suspect: 2200 Recent Procedure: No On Antibiotic Therapy: No Respiratory Rate >20: No Heart Rate >90: No Temp<36 C (96.8 F) or >38.3 C: No SBP <90 or MAP <65 mmHG: No New Acute Mental Status Change: No Is the patient on CPAP, BIPAP,: No Physician Orders Head Without Contrast (02/11/25 00:13) Urinalysis (02/11/25 00:13) L Knee 3v Xray (02/11/25 00:13) Potassium (02/11/25 06:26) Complete Blood Count (02/11/25 03:52) Comprehensive Metabolic Panel (02/11/25 03:52) B-Type Natriuretic Peptide (02/11/25 03:52) *[facility] (02/11/25 03:52) Aspirin Tablet (02/11/25 10:00) Clopidogrel Bisulfate (Plavix) (02/11/25 10:00) Famotidine Injection (Pepcid Injection) (02/11/25 10:00) Gabapentin Capsule (Neurontin Capsule) (02/11/25 06:00) Consistent Carb(Ccho)Diabetes (02/11/25 Breakfast) Glucose Blood (Accu-Chek Comfort Curve T (02/11/25 04:00) Agressive Insulin Ss (02/11/25 04:00) Dextrose 50% Syringe (02/11/25 04:00) Admit (02/11/25 03:52) Allergies (02/11/25 03:52) Code Status (02/11/25 03:52) 0.9% Ns 1000 Ml (02/11/25 04:00) Oxygen Per Hour (02/11/25 03:52) Vital Signs Date Time Temp Pulse Resp B/P (MAP) Pulse Ox O2 Delivery O2 Flow Rate FiO2 02/11/25 02:40 18 98 Nasal Cannula* 2 28 02/11/25 01:57 75 14 121/34 (63) 86 02/10/25 22:01 98.1 75 18 103/64 96 98.1 Laboratory Tests Test 02/11/25 00:23 Lactic Acid Level 2.0 mmol/L (0.4-2.0) White Blood Count 5.0 10^3/uL (4.4-10.8) Medications Medications Dose Ordered Sig/Zehra Route Start Time Stop Time Status Last Admin Dose Admin Albuterol 20 mg ONCE ONCE NEB 02/11/25 02:30 02/11/25 02:35 DC 02/11/25 02:40 20 MG Assessment/Plan Assessment/Plan Hyperkalemia Hyponatremia Generalized weakness Acute renal failure Uncontrolled diabetes mellitus with hyperglycemia Diabetes mellitus with neuropathy Plan 1. Admit to telemetry unit 2. Breathing treatment 3. Pain control management 4. Management of fluids and electrolytes 5. Consultation for hospitalist 6. Diagnostic tests head CT 7. DVT prophylaxis on SCDs 8. Repeat labs CBC, CMP in a.m. 9. Continue with current medical management 10. Treatment plan discussed with patient and RN. Patient verbalized understanding. Plan discussed with: Patient, Other (RN) My Orders Orders - KENTRELL KELLEY DNP Procedure Category Date Status Time Complete Blood Count LAB 02/11/25 Verified 03:52 Comprehensive LAB 02/11/25 Verified Metabolic Panel 03:52 B-Type Natriuretic LAB 02/11/25 Verified Peptide 03:52 *[facility] CONS 02/11/25 Verified -[place] 03:52 Aspirin Tablet PHA 02/11/25 Verified 10:00 Clopidogrel Bisulfate PHA 02/11/25 Verified (Plavix) 10:00 Famotidine Injection PHA 02/11/25 Verified (Pepcid Injection) 10:00 Gabapentin Capsule PHA 02/11/25 Verified (Neurontin Capsule) 06:00 Consistent DIET 02/11/25 Verified Carb(Ccho)Diabetes Breakfast Glucose Blood PHA 02/11/25 Verified (Accu-Chek Comfort 04:00 Agressive Insulin Ss PHA 02/11/25 Verified 04:00 Dextrose 50% Syringe PHA 02/11/25 Verified 04:00 Admit ADMIT 02/11/25 Verified 03:52 Allergies DONNY 02/11/25 Verified 03:52 Code Status CODE 02/11/25 Verified 03:52 0.9% Ns 1000 Ml PHA 02/11/25 Verified 04:00 Oxygen Per Hour RT 02/11/25 Verified 03:52 Problem List: (1) Hyperkalemia (2) Hyponatremia (3) Generalized weakness (4) Acute renal failure (5) Uncontrolled diabetes mellitus with hyperglycemia (6) Diabetes mellitus with neuropathy Date of Service: Feb 11, 2025 Billing Provider: KENTRELL KELLEY DNP Common Visit Codes: [id number] INP/OBS CARE (HIGH) KENTRELL KELLEY DNP Feb 11, 2025 04:00
[2025-02-11] MEDS: GABAPENTIN 300 MG CAP PO SCH (06:00)
[2025-02-11 06:22] LABS: Hemoglobin 12.0 g/dL (12.2-16.2); Nucleated Red Blood Cells % 0.2 %
[2025-02-11] MEDS: ACCU-CHEK COMFORT CURVE STRIP VI SCH (06:23)
[2025-02-11 06:24] LABS: Hematocrit 38.8 % (36.0-46.0); Mean Corpuscular Hemoglobin 23.2 pg (28.0-32.0); Mean Corpuscular Volume 75.0 fL (80.0-100.0)
[2025-02-11] MEDS: InsuLIN REG 1unit/0.01ml Soln (100units/ml) SC SCH (06:25)
[2025-02-11 06:36] LABS: Alanine Aminotransferase 38 U/L (7-40); Albumin 3.9 g/dL (3.2-4.8); Anion Gap 9 (5-15); BUN/Creatinine Ratio 12.2 (10.0-20.0); Bilirubin, Total 0.4 mg/dL (0.2-1.0); Carbon Dioxide 26 mmol/L (20-31); Potassium 4.9 mmol/L (3.5-5.1); Total Protein 7.1 g/dL (5.7-8.2)
[2025-02-11 06:39] LABS: Chloride 95 mmol/L (98-107); Sodium 130 mmol/L (136-145)
[2025-02-11] MEDS: InsuLIN REG 1unit/0.01ml Soln (100units/ml) IV ONE (06:39)
[2025-02-11 06:40] LABS: Alkaline Phosphatase 187 U/L (46-116); Blood Urea Nitrogen 33 mg/dL (9-23); Calcium 8.4 mg/dL (8.7-10.4)
[2025-02-11 06:44] LABS: Glucose 521 mg/dL (74-106)
[2025-02-11] MEDS: FUROSEMIDE 20 MG/2 ML VIAL IV ONE (06:45)
[2025-02-11 08:26] LABS: Urine Budding Yeast MODERATE /hpf (None Seen); Urine Protein, UAD TRACE (Negative)
--- NOTE | 2025-02-11 09:48 | DVHINCON2 ---
Date of service: Feb 11, 2025 Referring Physician Nael Magana nurse practitioner Reason for Consultation Acute kidney injury History of Present Illness Patient is 54-year-old morbidly obese female with past medical history significant for Anemia, Angina, CHF, COPD, DM, GERD, High Lipids, HTN, Kidney Stones, NH, and Ovarian Cysts is admitted status post a fall. On admission patient found to have elevated BUN creatinine nephrology is consulted for acute kidney injury Past Medical History Anemia, Angina, CHF, COPD, DM, GERD, High Lipids, HTN, Kidney Stones, NH, Ovarian Cysts Past Surgical History BTL, , Hernia Repair, Pacemaker, PTCA, Tubal Ligation Allergies: Coded Allergies: Latex (Verified Allergy, Unknown, 10/02/10) Uncoded Allergies: ADHESIVE TAPE (Allergy, Unknown, 11/24/20) Home Meds Active Scripts Tramadol HCl (Tramadol HCl) 50 Mg Tab, 50 MG PO TID, #20 TAB Prov:JODY LYNN 02/10/25 Triamcinolone Acetonide (Triamcinolone Acetonide) 0.025 % Cre, 1 APPLIC TOP BID, #30 GRAMS Prov:JODY LYNN 02/10/25 Acyclovir (Acyclovir) 800 Mg Tab, 800 MG PO 5XD, #35 TAB Prov:JODY LYNN 02/10/25 Oxycodone W/ Acetaminophen (Percocet 5/325MG) 1 Tab Tb, 1 TAB PO TID for 5 Days, #15 TAB Prov:DANIEL QUIJANO MD 01/20/25 Empagliflozin (Jardiance) 25 Mg Tab, 25 MG PO QAM for 30 Days, #30 TAB Prov:BRANDIN STEEL MD 05/19/21 Ergocalciferol (VITAMIN D 37335 UNIT) 50,000 [place], [address] UNIT PO Q7D for 10 Days, #10 CAP Prov:BRANDIN STEEL MD 05/19/21 Furosemide (Furosemide) 40 Mg Tab, 1 TAB PO DAILY, #30 TAB 0 Refills Prov:ABDIEL GREENBERG MD 08/01/19 Doxycycline Hyclate (DOXYCYCLINE HYCLATE) 100 Mg Tab, 1 TAB PO BID, #14 TAB Prov:ABDIEL GREENBERG MD 08/01/19 Reported Medications Clopidogrel Bisulfate (CLOPIDOGREL) 75 Mg Tab, 75 MG PO DAILY for 30 Days, MG 12/01/17 Methocarbamol (Methocarbamol) 500 Mg Tab, 500 MG PO BID for FOR MUSCLE SPASM for 30 Days, MG 12/01/17 Diphenhydramine Hcl (Benadryl Allergy) 25 Mg Cap, 25 MG PO Q4HP PRN for FOR ITCHING, CAP 12/01/17 Nitroglycerin (NTROSTAT SUBLINGUAL) 0.4 Mg Sl, 0.4 MG SL PRN PRN for FOR CHEST PAIN *MAY REPEAT EVERY 5 MINUTES X 3 TOTAL IF NO RELIEF, INITIATE ANALGESIC THERAPY. NOTIFY PHYSICIAN *Do not crush. 12/01/17 Insulin Aspart Protamine & Asp (Novolog Mix 70/30 Prefill (70-30) 100 Unit/ml) 1 Inj Inj, 1 INJ SC BID, INJ 12/01/17 Lorazepam (Ativan) 0.5 Mg Tab, 1 TAB PO QHSP for ANXIETY, #30 TAB 12/01/17 Ondansetron (Zofran) 4 Mg Tab, 4 MG PO Q4HP PRN for NAUSEA / VOMITING, MG 12/01/17 Insulin Detemir (Levemir) Inj, 20 SC QHSP, INJ 12/01/17 Albuterol Sulfate (Proair Respiclick) 108 Mcg/Act Aer, 108 MCG IN TIDPRN PRN for SHORTNESS OF BREATH, AER 12/01/17 Potassium Chloride (POTASSIUM CHLORIDE CR) 10 Meq Tb, 8 MEQ PO DAILY 12/01/17 Docusate Sodium (Colace) 100 Mg Cap, 100 MG PO BID, CAP 12/01/17 Hydrocodone-Acetaminophen (Hydrocodone Bitartrate/AC 7.5-325 mg) 1 Tab Tab, 1 TAB PO Q6HP PRN for MODERATE PAIN, TAB 12/01/17 Gabapentin (Gabapentin) 300 Mg Cap, 300 MG PO TID for 30 Days, MG 12/01/17 Glipizide (Glipizide) 10 Mg Tab, 10 MG PO DAILY for 30 Days, MG 12/01/17 Aspirin (Aspir-Low) 81 Mg Tab, 81 MG PO DAILY for 30 Days, MG 12/01/17 Lisinopril (Lisinopril) 40 Mg Tab, 40 MG PO DAILY for 30 Days, MG 12/01/17 Current Medications Current Medications Medications (Trade) Dose Ordered Sig/Zehra Route PRN Reason Start Time Stop Time Status Last Admin Aspirin 81 mg DAILY PO 02/11/25 10:00 Clopidogrel Bisulfate (Plavix) 75 mg DAILY PO 02/11/25 10:00 Famotidine (Pepcid Injection) 20 mg DAILY IV 02/11/25 10:00 Gabapentin (Neurontin Capsule) 300 mg TID PO 02/11/25 06:00 02/11/25 06:00 Diagnostic Test (Pha) (Accu-Chek Comfort Curve T) 1 strip IQ4HR 02/11/25 04:00 02/11/25 06:23 Insulin Human Regular (InsuLIN R) IQ4HR SC 02/11/25 04:00 Dextrose 50 ml UD PRN IV Blood Sugar LESS THAN 60 02/11/25 04:00 Sodium Chloride 1,000 ml @ 120 mls/hr Q8H20M IV 02/11/25 04:00 Acetaminophen/ Hydrocodone Bitart ([place] 5/325MG Tab) 1 tab Q4HP PRN PO MODERATE PAIN (4-6 PAIN SCALE) 02/11/25 04:00 Ondansetron HCl (Zofran) 4 mg Q4HP PRN IV NAUSEA / VOMITING 02/11/25 04:00 Docusate Sodium (Colace Capsule) 100 mg BIDPRN PRN PO FOR CONSTIPATION 02/11/25 04:00 Acetaminophen (Tylenol Tablet) 650 mg Q6HP PRN PO PAIN SCALE 1-3 OR TEMP>100.4 02/11/25 04:00 Nitroglycerin (Ntrostat Sublingual) 0.4 mg Q5MINP PRN SL FOR CHEST PAIN 02/11/25 04:00 Morphine Sulfate 2 mg Q30M PRN IV FOR CHEST PAIN 02/11/25 04:00 Family History: Cardiovascular disease G8 MOTHER Diabetes mellitus G8 MOTHER Review of Systems All 12 item review of systems reviewed with the patient nonsignificant except what is mentioned in the history of present illness H&P Exam Vital Signs/I&O Vital Sign Date Time Temp Pulse Resp B/P (MAP) Pulse Ox O2 Delivery O2 Flow Rate FiO2 02/11/25 06:45 121/72 02/11/25 05:14 97.6 76 16 94 97.6 02/11/25 02:40 Nasal Cannula* 2 28 Physical Exam Morbidly obese female appeared in no acute distress Lungs clear to auscultation bilaterally Cardiac exam regular rate and rhythm GI soft nontender was normal Extremity 1+ edema Neuro nonfocal Labs/Diagnostic Data Labs/Diagnostic Data Laboratory Tests Test 02/11/25 07:54 02/11/25 06:11 02/11/25 06:05 02/11/25 06:01 Range/Units Urine Color Straw Yellow Urine Clarity Sl. cloudy Clear Urine pH 5.5 5.0-9.0 Urine Specific [place] 1.018 1.001-1.035 Urine Protein Trace H Negative Urine Ketones Negative Negative Urine Blood Trace H Negative /uL Urine Nitrite Negative Negative Urine Bilirubin Negative Negative Urine Urobilinogen Normal Negative mg/dL Urine Leukocyte Esterase 2+ Negative /uL Urine RBC 8 0 - 4 /hpf Urine Microscopic WBC 91 H 0-5 /HPF Urine Squamous Epithelial Cells Few <5 /hpf Urine Bacteria Few H None Seen /hpf Urine Hyaline Casts Few 0 - 2 /lpf Urine Yeast (Budding) Moderate None Seen /hpf Urine Glucose 4+ H Normal mg/dL White Blood Count 5.2 4.4-10.8 10^3/uL Red Blood Count 5.18 4.0-5.20 10^6/uL Hemoglobin 12.0 L 12.2-16.2 g/dL Hematocrit 38.8 36.0-46.0 % Mean Corpuscular Volume 75.0 L 80.0-100.0 fL Mean Corpuscular Hemoglobin 23.2 L 28.0-32.0 pg Mean Corpuscular Hemoglobin Concent 30.9 L 32.0-36.0 g/dL Red Cell Distribution Width 20.3 H 11.8-14.3 % Platelet Count 198 140-450 10^3/uL Mean Platelet Volume 9.2 6.9-10.8 fL Neutrophils (%) (Auto) 67.7 37.0-80.0 % Lymphocytes (%) (Auto) 18.5 10.0-50.0 % Monocytes (%) (Auto) 12.1 H 0.0-12.0 % Eosinophils (%) (Auto) 1.3 0.0-7.0 % Basophils (%) (Auto) 0.4 0.0-2.0 % Neutrophils # (Auto) 3.5 1.6-8.6 10 ^3/uL Lymphocytes # (Auto) 1.0 0.4-5.4 10 ^3/uL Monocytes # (Auto) 0.6 0-1.3 10 ^3/uL Eosinophils # (Auto) 0.1 0-0.8 10 ^3/uL Basophils # (Auto) 0 0-0.2 10 ^3/uL Nucleated Red Blood Cells 0.2 % Sodium Level 130 L 136-145 mmol/L Potassium Level 4.9 3.5-5.1 mmol/L Chloride Level 95 L 98-107 mmol/L Carbon Dioxide Level 26 20-31 mmol/L Anion Gap 9 5-15 Blood Urea Nitrogen 33 H 9-23 mg/dL Creatinine 2.71 H 0.550-1.02 mg/dL Glomerular Filtration Rate Calc 20 >90 mL/min BUN/Creatinine Ratio 12.2 10.0-20.0 Serum Glucose 521 *H 74-106 mg/dL Hemoglobin A1c 12.8 H <5.7 % A1C Calcium Level 8.4 L 8.7-10.4 mg/dL Total Bilirubin 0.4 0.2-1.0 mg/dL Aspartate Amino Transferase (AST) 37 13-40 U/L Alanine Aminotransferase (ALT) 38 7-40 U/L Alkaline Phosphatase 187 H 46-116 U/L B-Type Natriuretic Peptide 1059.29 0-100 pg/mL Total Protein 7.1 5.7-8.2 g/dL Albumin 3.9 3.2-4.8 g/dL POC Glucose 417 *H 471 *H 70-106 mg/dl Test 02/11/25 01:42 02/11/25 00:23 Range/Units Phosphorus Level 5.0 2.4-5.1 mg/dL Magnesium Level 2.8 H 1.6-2.6 mg/dL Troponin I High Sensitivity 30 29 </=34 ng/L White Blood Count 5.0 4.4-10.8 10^3/uL Red Blood Count 4.99 4.0-5.20 10^6/uL Hemoglobin 11.7 L 12.2-16.2 g/dL Hematocrit 38.1 36.0-46.0 % Mean Corpuscular Volume 76.3 L 80.0-100.0 fL Mean Corpuscular Hemoglobin 23.4 L 28.0-32.0 pg Mean Corpuscular Hemoglobin Concent 30.7 L 32.0-36.0 g/dL Red Cell Distribution Width 20.7 H 11.8-14.3 % Platelet Count 173 140-450 10^3/uL Mean Platelet Volume 9.3 6.9-10.8 fL Neutrophils (%) (Auto) 74.3 37.0-80.0 % Lymphocytes (%) (Auto) 14.4 10.0-50.0 % Monocytes (%) (Auto) 9.4 0.0-12.0 % Eosinophils (%) (Auto) 1.4 0.0-7.0 % Basophils (%) (Auto) 0.5 0.0-2.0 % Neutrophils # (Auto) 3.7 1.6-8.6 10 ^3/uL Lymphocytes # (Auto) 0.7 0.4-5.4 10 ^3/uL Monocytes # (Auto) 0.5 0-1.3 10 ^3/uL Eosinophils # (Auto) 0.1 0-0.8 10 ^3/uL Basophils # (Auto) 0 0-0.2 10 ^3/uL Nucleated Red Blood Cells 0.4 % Sodium Level 127 L 136-145 mmol/L Potassium Level 5.7 *H 3.5-5.1 mmol/L Chloride Level 93 L 98-107 mmol/L Carbon Dioxide Level 25 20-31 mmol/L Anion Gap 9 5-15 Blood Urea Nitrogen 31 H 9-23 mg/dL Creatinine 2.79 H 0.550-1.02 mg/dL Glomerular Filtration Rate Calc 20 >90 mL/min BUN/Creatinine Ratio 11.1 10.0-20.0 Serum Glucose 614 *H 74-106 mg/dL Lactic Acid Level 2.0 0.4-2.0 mmol/L Calcium Level 8.3 L 8.7-10.4 mg/dL Total Bilirubin 0.5 0.2-1.0 mg/dL Aspartate Amino Transferase (AST) 53 H 13-40 U/L Alanine Aminotransferase (ALT) 39 7-40 U/L Alkaline Phosphatase 187 H 46-116 U/L Total Protein 6.6 5.7-8.2 g/dL Albumin 3.7 3.2-4.8 g/dL Assessment Acute kidney injury superimposed Chronic Kidney Disease secondary hemodynamic mediated 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 I discussed my plan of care with the patient and primary nurse at the bedside I would like to thank Nael for the consult, will follow up Plan discussed with: Patient OCTAVIO MULTANI MD Feb 11, 2025 09:48
--- NOTE | 2025-02-11 10:37 | DVH ---
INDICATION: nathen TECHNIQUE: Multiple real-time sonographic images of the kidneys and bladder were obtained. COMPARISON: KIDNEY on DOS: 05/17/21 FINDINGS: RIGHT kidney measures 7.1 cm in length. No hydronephrosis. LEFT kidney measures 9.4 cm in length. Left upper pole cyst measures 1.2 cm. No hydronephrosis. No large intraluminal masses are seen in the bladder. IMPRESSION: Atrophic appearance of the right kidney. No acute findings.
[2025-02-11 10:42] LABS: Magnesium 2.8 mg/dL (1.6-2.6)
[2025-02-11 10:52] VITALS: BP 132/58; PULSE 76; RESP 16; TEMP 97.9; O2SAT 95
[2025-02-11] MEDS: SODIUM CHLORIDE 0.9% 1,000 ML IV SCH (11:05)
[2025-02-11] MEDS: CALCIUM GLUC 1,000mg/50ml-NS 50 ML IV ONE (11:19)
[2025-02-11] MEDS: FAMOTIDINE (10MG/ML) 2ML VL IV SCH (11:20)
[2025-02-11] MEDS: CLOPIDOGREL BISULFATE 75 MG TAB PO SCH (11:20)
[2025-02-11 11:29] LABS: Uric Acid 9.6 mg/dL (3.1-7.8)
[2025-02-11] MEDS ORDERED: cefTRIAXone 1GM/50ML D5W 50 ML IV ONE (14:30)
--- NOTE | 2025-02-11 14:33 | DVHPN2 ---
Reviewed: Care Plan, H&P, Labs, Medications, Previous Orders, Radiology Changes from previous H/P or p: No Changes Eyes: No Pain, No Vision change, No Conjunctivae inflammation, No Eyelid inflammation, No Other, No Redness ENT: No Ear pain, No Ear discharge, No Nose pain, No Nose discharge, No Nose congestion, No Mouth pain, No Mouth swelling, No Throat pain, No Throat swelling, No Other Cardiovascular: No Chest Pain, No Palpitations, No Orthopnea, No Paroxysmal Noc. Dyspnea, No Edema, No Lt Headedness, No Other Respiratory: No Cough, No Dry, No Shortness of breath, No SOB with excertion, No Wheezing, No Hemoptysis, No Pleuritic Pain, No Sputum, No Other Gastrointestinal: No Nausea, No Vomiting, No Abdominal Pain, No Diarrhea, No Constipation, No Melena, No Hematochezia, No Other Genitourinary: No Dysuria, No Frequency, No Incontinence, No Hematuria, No Retention, No Other Musculoskeletal: No other, No neck pain, No shoulder pain, No arm pain, No back pain, No hand pain; leg pain (Right); No foot pain Skin: No Rash, No Lesions, No Jaundice, No Bruising; Other (Lower extremity nonhealing wound) Objective Vitals Vital Signs Date Time Temp Pulse Resp B/P (MAP) Pulse Ox O2 Delivery O2 Flow Rate FiO2 02/11/25 10:52 97.9 76 16 132/58 (82) 95 97.9 02/11/25 02:40 Nasal Cannula* 2 28 Medications Current Medications Medications Dose Ordered Sig/Zehra Route Start Time Stop Time Status Last Admin Dose Admin Aspirin 81 mg DAILY PO 02/11/25 10:00 02/11/25 11:20 81 MG Clopidogrel Bisulfate 75 mg DAILY PO 02/11/25 10:00 02/11/25 11:20 75 MG Famotidine 20 mg DAILY IV 02/11/25 10:00 02/11/25 11:20 20 MG Gabapentin 300 mg TID PO 02/11/25 06:00 02/11/25 06:00 300 MG Diagnostic Test (Pha) 1 strip IQ4HR 02/11/25 04:00 02/11/25 11:19 1 STRIP Insulin Human Regular IQ4HR SC 02/11/25 04:00 02/11/25 11:19 20 UNITS Dextrose 50 ml UD PRN IV 02/11/25 04:00 Sodium Chloride 1,000 ml @ 120 mls/hr Q8H20M IV 02/11/25 04:00 02/11/25 11:05 120 MLS/HR Acetaminophen/ Hydrocodone Bitart 1 tab Q4HP PRN PO 02/11/25 04:00 Ondansetron HCl 4 mg Q4HP PRN IV 02/11/25 04:00 Docusate Sodium 100 mg BIDPRN PRN PO 02/11/25 04:00 Acetaminophen 650 mg Q6HP PRN PO 02/11/25 04:00 Nitroglycerin 0.4 mg Q5MINP PRN SL 02/11/25 04:00 Morphine Sulfate 2 mg Q30M PRN IV 02/11/25 04:00 Laboratory Results Laboratory Tests 02/11/25 06:11 Chemistry Test 02/11/25 00:23 02/11/25 01:42 02/11/25 06:11 Albumin 3.7 g/dL (3.2-4.8) 3.9 g/dL (3.2-4.8) Calcium Level 8.3 mg/dL (8.7-10.4) L 8.4 mg/dL (8.7-10.4) L Total Protein 6.6 g/dL (5.7-8.2) 7.1 g/dL (5.7-8.2) Magnesium Level 2.8 mg/dL (1.6-2.6) H Phosphorus Level 5.0 mg/dL (2.4-5.1) Cardiac Markers Test 02/11/25 06:11 B-Type Natriuretic Peptide 1059.29 pg/mL (0-100) LFT Test 02/11/25 00:23 02/11/25 06:11 Alanine Aminotransferase (ALT) 39 U/L (7-40) 38 U/L (7-40) Alkaline Phosphatase 187 U/L (46-116) H 187 U/L (46-116) H Aspartate Amino Transferase (AST) 53 U/L (13-40) H 37 U/L (13-40) Total Bilirubin 0.5 mg/dL (0.2-1.0) 0.4 mg/dL (0.2-1.0) HgA1c, TSH Test 02/11/25 06:11 Hemoglobin A1c 12.8 % A1C (<5.7) H Urinalysis Test 02/11/25 07:54 Urine Color Straw (Yellow) Urine Clarity Sl. cloudy (Clear) Urine pH 5.5 (5.0-9.0) Urine Specific [place] 1.018 (1.001-1.035) Urine Protein Trace (Negative) H Urine Ketones Negative (Negative) Urine Blood Trace /uL (Negative) H Urine Nitrite Negative (Negative) Urine Bilirubin Negative (Negative) Urine Urobilinogen Normal mg/dL (Negative) Urine Leukocyte Esterase 2+ /uL (Negative) Urine RBC 8 /hpf (0 - 4) Urine Microscopic WBC 91 /HPF (0-5) H Urine Squamous Epithelial Cells Few /hpf (<5) Urine Bacteria Few /hpf (None Seen) H Urine Hyaline Casts Few /lpf (0 - 2) Urine Yeast (Budding) Moderate /hpf (None Seen) Urine Osmolality Pending Urine Creatinine Pending Urine Protein/Creatinine Ratio Pending Urine Sodium Pending Urine Glucose 4+ mg/dL (Normal) H Urine Total Protein Pending Labs and/or images reviewed: Labs reviewed by me, Image(s) reviewed by me Assessment/Plan Assessment/Plan Sepsis secondary to urinary tract infection: Blood cultures urine cultures Rocephin Acute metabolic encephalopathy Acute hyperkalemia Hyponatremia AK I Uncontrolled diabetes with blood sugar 480 Diabetes nephropathy neuropathy Acute on chronic CHF exacerbation COPD Hypertension Hyperlipidemia History of kidney stones History of [place] History of ovarian cyst Time spent 70 minutes Advanced care planning time 20 minutes Plan discussed with: Patient Date of Service: Feb 11, 2025 Billing Provider: ADRIAN DE LEON MD Common Visit Codes: 14615-[id number] CARE 30-74 MIN ADRIAN D ELEON MD Feb 11, 2025 14:33
--- NOTE | 2025-02-12 08:25 | DVHDS2 ---
Discharge Summary Date of Admission Feb 11, 2025 at 03:52 Date of Discharge: Feb 11, 2025 Admitting Diagnosis Generalized weakness and fall Wounds: None Labs/Diagnostic Data: Laboratory Results Test 02/11/25 14:47 02/11/25 11:06 02/11/25 07:54 02/11/25 06:11 POC Glucose 377 mg/dl (70-106) Urine Color Straw (Yellow) Urine Clarity Sl. cloudy (Clear) Urine pH 5.5 (5.0-9.0) Urine Specific [place] 1.018 (1.001-1.035) Urine Protein Trace (Negative) Urine Ketones Negative (Negative) Urine Blood Trace /uL (Negative) Urine Nitrite Negative (Negative) Urine Bilirubin Negative (Negative) Urine Urobilinogen Normal mg/dL (Negative) Urine Leukocyte Esterase 2+ /uL (Negative) Urine RBC 8 /hpf (0 - 4) Urine Microscopic WBC 91 /HPF (0-5) Urine Squamous Epithelial Cells Few /hpf (<5) Urine Bacteria Few /hpf (None Seen) Urine Hyaline Casts Few /lpf (0 - 2) Urine Yeast (Budding) Moderate /hpf (None Seen) Urine Glucose 4+ mg/dL (Normal) White Blood Count 5.2 10^3/uL (4.4-10.8) Red Blood Count 5.18 10^6/uL (4.0-5.20) Hemoglobin 12.0 g/dL (12.2-16.2) Hematocrit 38.8 % (36.0-46.0) Mean Corpuscular Volume 75.0 fL (80.0-100.0) Mean Corpuscular Hemoglobin 23.2 pg (28.0-32.0) Mean Corpuscular Hemoglobin Concent 30.9 g/dL (32.0-36.0) Red Cell Distribution Width 20.3 % (11.8-14.3) Platelet Count 198 10^3/uL (140-450) Mean Platelet Volume 9.2 fL (6.9-10.8) Neutrophils (%) (Auto) 67.7 % (37.0-80.0) Lymphocytes (%) (Auto) 18.5 % (10.0-50.0) Monocytes (%) (Auto) 12.1 % (0.0-12.0) Eosinophils (%) (Auto) 1.3 % (0.0-7.0) Basophils (%) (Auto) 0.4 % (0.0-2.0) Neutrophils # (Auto) 3.5 10 ^3/uL (1.6-8.6) Lymphocytes # (Auto) 1.0 10 ^3/uL (0.4-5.4) Monocytes # (Auto) 0.6 10 ^3/uL (0-1.3) Eosinophils # (Auto) 0.1 10 ^3/uL (0-0.8) Basophils # (Auto) 0 10 ^3/uL (0-0.2) Nucleated Red Blood Cells 0.2 % Sodium Level 130 mmol/L (136-145) Potassium Level 4.9 mmol/L (3.5-5.1) Chloride Level 95 mmol/L (98-107) Carbon Dioxide Level 26 mmol/L (20-31) Anion Gap 9 (5-15) Blood Urea Nitrogen 33 mg/dL (9-23) Creatinine 2.71 mg/dL (0.550-1.02) Glomerular Filtration Rate Calc 20 mL/min (>90) BUN/Creatinine Ratio 12.2 (10.0-20.0) Serum Glucose 521 mg/dL (74-106) Hemoglobin A1c 12.8 % A1C (<5.7) Calcium Level 8.4 mg/dL (8.7-10.4) Total Bilirubin 0.4 mg/dL (0.2-1.0) Aspartate Amino Transferase (AST) 37 U/L (13-40) Alanine Aminotransferase (ALT) 38 U/L (7-40) Alkaline Phosphatase 187 U/L (46-116) B-Type Natriuretic Peptide 1059.29 pg/mL (0-100) Total Protein 7.1 g/dL (5.7-8.2) Albumin 3.9 g/dL (3.2-4.8) Parathyroid Hormone (Intact) 155.5 pg/mL (18.4-80.1) Test 02/11/25 01:42 02/11/25 00:23 Uric Acid 9.6 mg/dL (3.1-7.8) Phosphorus Level 5.0 mg/dL (2.4-5.1) Magnesium Level 2.8 mg/dL (1.6-2.6) Troponin I High Sensitivity 30 ng/L (</=34) Lactic Acid Level 2.0 mmol/L (0.4-2.0) Other Laboratory Tests 02/11/25 06:11 Brief Hx & Hospital Course: 55-year-old female with a history of diabetes congestive heart failure COPD hypertension hyperlipidemia SD history of kidney stone and ovarian cyst burden for generalized weakness and fall at home. Found to be in sepsis secondary to urinary tract infection. Blood cultures and urine cultures were ordered started on Rocephin uncontrolled diabetes blood sugars of 480 put on insulin aggressive sliding scale patient is very noncompliant. Examined the patient in the ER lobby, patient did not want to wait for availability of the bed. Patient decided to leave AMA and left AMA from the ER lobby. Consequences and complications including possible explained to the patient and the patient verbalized understanding. 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 CT head negative. Left knee x-ray negative. Consults/Reason for consult None Operations or Procedures CT head Left knee x-ray Condition at Discharge: Fair Final Diagnosis/Problems List Sepsis secondary to urinary tract infection: Blood cultures urine cultures Rocephin Acute metabolic encephalopathy Acute hyperkalemia Hyponatremia AK I Uncontrolled diabetes with blood sugar 480 Diabetes nephropathy neuropathy Acute on chronic CHF exacerbation COPD Hypertension Hyperlipidemia History of kidney stones History of [place] History of ovarian cyst Discharge Disposition: AMA Discharge Instruct/Medications Diet comment: Not applicable Patient left AMA Activity comment: Not applicable Patient left AMA Follow Up/Referral: Not applicable Patient left AMA Medications: Not applicable Patient left AMA Scheduled Acyclovir (Acyclovir), 800 MG PO 5XD Aspirin (Aspir-Low), 81 MG PO DAILY, (Reported) Clopidogrel Bisulfate (Clopidogrel), 75 MG PO DAILY, (Reported) Docusate Sodium (Colace), 100 MG PO BID, (Reported) Doxycycline Hyclate (Doxycycline Hyclate), 1 TAB PO BID Empagliflozin (Jardiance), 25 MG PO QAM Ergocalciferol (Vitamin D 11092 Unit), 50,000 UNIT PO Q7D Furosemide (Furosemide), 1 TAB PO DAILY Gabapentin (Gabapentin), 300 MG PO TID, (Reported) Glipizide (Glipizide), 10 MG PO DAILY, (Reported) Insulin Aspart Protamine & Asp (Novolog Mix 70/30 Prefill (70-30) 100 Unit/ml), 1 INJ SC BID, (Reported) Insulin Detemir (Levemir), 20 SC QHSP, (Reported) Lisinopril (Lisinopril), 40 MG PO DAILY, (Reported) Lorazepam (Ativan), 1 TAB PO QHSP, (Reported) Methocarbamol (Methocarbamol), 500 MG PO BID, (Reported) Oxycodone W/ Acetaminophen (Percocet 5/325MG), 1 TAB PO TID Potassium Chloride (Potassium Chloride Cr), 8 MEQ PO DAILY, (Reported) Tramadol HCl (Tramadol HCl), 50 MG PO TID Triamcinolone Acetonide (Triamcinolone Acetonide), 1 APPLIC TOP BID Scheduled PRN Albuterol Sulfate (Proair Respiclick), 108 MCG IN TIDPRN PRN for SHORTNESS OF BREATH, (Reported) Diphenhydramine Hcl (Benadryl Allergy), 25 MG PO Q4HP PRN for FOR ITCHING, (Reported) Hydrocodone-Acetaminophen (Hydrocodone Bitartrate/AC 7.5-325 mg), 1 TAB PO Q6HP PRN for MODERATE PAIN, (Reported) Nitroglycerin (Ntrostat Sublingual), 0.4 MG SL PRN PRN for FOR CHEST PAIN, (Reported) Ondansetron (Zofran), 4 MG PO Q4HP PRN for NAUSEA / VOMITING, (Reported) 36 (Time taken for discharge summary 36 minutes) Discharge Statement: "Patient was advised to return to the ER or call 911 if any headaches, dizziness, shortness of breath, chest pain, abdominal pain, bleeding, fevers, or worsening of medical condition. Patient was counseled about treatment plan, medications, possible side effects, patientverbalized understanding. All questions were answered to the best of my ability. This discharge took greater then 30 minutes in planning, reviewing documentation, counseling the patient, and discussing with other team members." ASSESSMENT ASSESSMENT Assessment Date of Service: Feb 11, 2025 Billing Provider: ADRIAN DE LEON MD Common Visit Codes: [id number]-SHQ/OBS DISCH DAY >30min ADRIAN DE LEON MD Feb 12, 2025 08:25
[2025-02-12] MEDS ORDERED: cefTRIAXone 1GM/50ML D5W 50 ML IV SCH (09:00)
== END 2025-02-11 14:34 | disposition left against medical advice (07) | DRG 720 ==
LOC: EDBD 21:53 → ER 21:53 → OVERFLOW 02-11 03:52
PROVIDERS: ADMIT Nurse Practitioner Family; ATTEND Nurse Practitioner Family
DX: A41.9 Sepsis, unspecified organism (principal); G93.41 Metabolic encephalopathy; I50.33 Acute on chronic diastolic (congestive) heart failure; E87.1 Hypo-osmolality and hyponatremia; D63.1 Anemia in chronic kidney disease; N17.9 Acute kidney failure, unspecified; I25.10 Atherosclerotic heart disease of native coronary artery without angina pectoris; E11.22 Type 2 diabetes mellitus with diabetic chronic kidney disease; E11.40 Type 2 diabetes mellitus with diabetic neuropathy, unspecified; E11.65 Type 2 diabetes mellitus with hyperglycemia; E66.01 Morbid (severe) obesity due to excess calories; E78.5 Hyperlipidemia, unspecified; E87.5 Hyperkalemia; J44.9 Chronic obstructive pulmonary disease, unspecified; N18.9 Chronic kidney disease, unspecified; Z53.29 Procedure and treatment not carried out because of patient's decision for other reasons; I13.0 Hypertensive heart and chronic kidney disease with heart failure and stage 1 through stage 4 chronic kidney disease, or unspecified chronic kidney disease; N39.0 Urinary tract infection, site not specified; K21.9 Gastro-esophageal reflux disease without esophagitis; Z91.199 Patient's noncompliance with other medical treatment and regimen due to unspecified reason; Z98.51 Tubal ligation status; Z91.048 Other nonmedicinal substance allergy status; Z79.4 Long term (current) use of insulin; Z79.82 Long term (current) use of aspirin; Z79.899 Other long term (current) drug therapy; I25.2 Old myocardial infarction; Z87.442 Personal history of urinary calculi; Z82.49 Family history of ischemic heart disease and other diseases of the circulatory system; Z83.3 Family history of diabetes mellitus
CPT/HCPCS: 36415; 70450; 73562; 76775; 80053; 81001; 82306; 82962; 83036; 83605; 83735; 83880; 83970; 84100; 84132; 84484; 84550; 85025; 87086; 94640; 96360; G0378; J1815; J3490

== ENCOUNTER 2025-04-27 19:10 | Emergency (ER) | payer MEDICAID ==
[~2025-04-27] VITALS: Ht 162.6 cm; Wt 124.3 kg
[2025-04-27 19:16] VITALS: BP 169/104; PULSE 87; RESP 16; TEMP 98; O2SAT 98
--- NOTE | 2025-04-27 20:00 | ED.PDOC ---
Musculoskeletal HPI Comments 55 y/o F, presents to the ED for CC of CHF, CVA, OK, and CAD presents to the ED for CC of lower extremity swelling. Patient reports, she has had increased bilateral lower extremity onset, 04/20/25. Patient relays, to have further associated symptoms of chest pain, chills, and difficulty breathing x2days ago. Patient endorses, currently taking 40mg of Furosemide daily, with no relief or change in symptoms. At this time patient is unable to ambulate and uses an electrical wheelchair for assistance. Patient denies active chest pain, dizziness, headache, nausea, or vomiting. No other symptoms or modifying factors are present at this time. Chief Complaint: Lower Extremity Time Seen by MD: 19:45 Primary Care Provider: MAIN Reviewed Notes: Nurses Notes, Medications, Allergies Allergies: Coded Allergies: Latex (Verified Allergy, Unknown, 10/02/10) Uncoded Allergies: ADHESIVE TAPE (Allergy, Unknown, 11/24/20) Home Meds Active Scripts Tramadol HCl (Tramadol HCl) 50 Mg Tab, 50 MG PO TID, #20 TAB Prov:JODY LYNN 02/10/25 Triamcinolone Acetonide (Triamcinolone Acetonide) 0.025 % Cre, 1 APPLIC TOP BID, #30 GRAMS Prov:JODY LYNN 02/10/25 Acyclovir (Acyclovir) 800 Mg Tab, 800 MG PO 5XD, #35 TAB Prov:JODY LYNN 02/10/25 Oxycodone W/ Acetaminophen (Percocet 5/325MG) 1 Tab Tb, 1 TAB PO TID for 5 Days, #15 TAB Prov:DANIEL QUIJANO MD 01/20/25 Empagliflozin (Jardiance) 25 Mg Tab, 25 MG PO QAM for 30 Days, #30 TAB Prov:BRANDIN STEEL MD 05/19/21 Ergocalciferol (VITAMIN D 41397 UNIT) 50,000 [place], [address] UNIT PO Q7D for 10 Days, #10 CAP Prov:BRANDIN STEEL MD 05/19/21 Furosemide (Furosemide) 40 Mg Tab, 1 TAB PO DAILY, #30 TAB 0 Refills Prov:ABDIEL GREENBERG MD 08/01/19 Doxycycline Hyclate (DOXYCYCLINE HYCLATE) 100 Mg Tab, 1 TAB PO BID, #14 TAB Prov:ABDIEL GREENBERG MD 08/01/19 Reported Medications Clopidogrel Bisulfate (CLOPIDOGREL) 75 Mg Tab, 75 MG PO DAILY for 30 Days, MG 12/01/17 Methocarbamol (Methocarbamol) 500 Mg Tab, 500 MG PO BID for FOR MUSCLE SPASM for 30 Days, MG 12/01/17 Diphenhydramine Hcl (Benadryl Allergy) 25 Mg Cap, 25 MG PO Q4HP PRN for FOR ITCHING, CAP 12/01/17 Nitroglycerin (NTROSTAT SUBLINGUAL) 0.4 Mg Sl, 0.4 MG SL PRN PRN for FOR CHEST PAIN *MAY REPEAT EVERY 5 MINUTES X 3 TOTAL IF NO RELIEF, INITIATE ANALGESIC THERAPY. NOTIFY PHYSICIAN *Do not crush. 12/01/17 Insulin Aspart Protamine & Asp (Novolog Mix 70/30 Prefill (70-30) 100 Unit/ml) 1 Inj Inj, 1 INJ SC BID, INJ 12/01/17 Lorazepam (Ativan) 0.5 Mg Tab, 1 TAB PO QHSP for ANXIETY, #30 TAB 12/01/17 Ondansetron (Zofran) 4 Mg Tab, 4 MG PO Q4HP PRN for NAUSEA / VOMITING, MG 12/01/17 Insulin Detemir (Levemir) Inj, 20 SC QHSP, INJ 12/01/17 Albuterol Sulfate (Proair Respiclick) 108 Mcg/Act Aer, 108 MCG IN TIDPRN PRN for SHORTNESS OF BREATH, AER 12/01/17 Potassium Chloride (POTASSIUM CHLORIDE CR) 10 Meq Tb, 8 MEQ PO DAILY 12/01/17 Docusate Sodium (Colace) 100 Mg Cap, 100 MG PO BID, CAP 12/01/17 Hydrocodone-Acetaminophen (Hydrocodone Bitartrate/AC 7.5-325 mg) 1 Tab Tab, 1 TAB PO Q6HP PRN for MODERATE PAIN, TAB 12/01/17 Gabapentin (Gabapentin) 300 Mg Cap, 300 MG PO TID for 30 Days, MG 12/01/17 Glipizide (Glipizide) 10 Mg Tab, 10 MG PO DAILY for 30 Days, MG 12/01/17 Aspirin (Aspir-Low) 81 Mg Tab, 81 MG PO DAILY for 30 Days, MG 12/01/17 Lisinopril (Lisinopril) 40 Mg Tab, 40 MG PO DAILY for 30 Days, MG 12/01/17 Information Source: Patient Mode of Arrival: Wheelchair Location: Bilateral Extremity Location: Leg Timing: Days Prehospital treatment: None Severity: Moderate Able to Move Extremity: Yes Bear Weight: No Pain: Moderate Mechanism: Spontaneous Circumstances: Spontaneous Onset of Symptoms: Spontaneous Symptoms: Swelling, Pain DVT Risk Factors: NONE Last Tetanus: Unknown Associated signs and symptoms: Swelling Past Medical History PAST MEDICAL HISTORY: Anemia, Angina, CHF, COPD, DM, GERD, High Lipids, HTN, Kidney Stones, [place] Surgical History: BTL, , Hernia Repair, Pacemaker, PTCA, Tubal Ligation 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 Family History Family History: No family hx of Cancer, No family hx of DM, No family hx of Heart vannessa, Family hx of HTN Social History Smoker: Non-Smoker Alcohol: Denies ETOH Use Drugs: Denies Drug Use Lives In: Home Constitutional: denies: chills, diaphoresis, fatigue, fever, malaise, sweats, weakness, others EENTM: denies: blurred vision, double vision, ear bleeding, ear discharge, ear drainage, ear pain, ear ringing, eye pain, eye redness, hearing loss, mouth pain, mouth swelling, nasal discharge, nose bleeding, nose congestion, nose pain, photophobia, tearing, throat pain, throat swelling, voice changes, others Respiratory: denies: cough, hemoptysis, orthopnea, SOB at rest, shortness of breath, SOB with excertion, stridor, wheezing, others Cardiovascular: denies: chest pain, dizzy spells, diaphoresis, Dyspnea on exertion, edema, irregular heart beat, left arm pain, lightheadedness, palpitations, PND, syncope, others Gastrointestinal: denies: abdomen distended, abdominal pain, blood streaked bowels, constipated, diarrhea, dysphagia, difficulty swallowing, hematemesis, melena, nausea, poor appetite, poor fluid intake, rectal bleeding, rectal pain, vomiting, others Genitourinary: denies: abnormal vagina bleeding, burning, dyspareunia, dysuria, flank pain, frequency, hematuria, incontinence, pain, , vagina discharge, urgency, others Neurological: denies: dizziness, fainting, headache, left sided numbness, left sided weakness, numbness, paresthesia, pre-existing deficit, right sided numbness, right sided weakness, seizure, speech problems, tingling, tremors, weakness, others Musculoskeletal: reports: others (bilateral leg swelling); denies: back pain, gout, joint pain, joint swelling, muscle pain, muscle stiffness, neck pain Integumetry: denies: bruises, change in color, change in hair/nails, dryness, laceration, lesions, lumps, rash, wounds, others Allergic/Immunocompromised: denies: Difficulty Healing, Frequent Infections, Hives, Itching, others Hematologic/Lymphatic: denies: anemia, blood clots, easy bleeding, easy bruising, swollen glands, others Endocrine: denies: excessive hunger, excessive sweating, excessive thirst, excessive urination, flushing, intolerance to cold, intolerance to heat, unexplained weight gain, unexplained weight loss, others Psychiatric: denies: anxiety, bipolar disorder, depression, hopeless, panic di sorder, schizophrenia, sleepless, suicidal, others All Other Systems: Reviewed and Negative Physical Exam General Appearance: Moderate Distress, Obese HEENT: Normal ENT Inspection, Pharynx Normal, TMs Normal Neck: Full Range of Motion, Non-Tender, Normal, Normal Inspection Respiratory: Chest Non-Tender, No Accessory Muscle Use, Rales, Respiratory Distress Cardiovascular: No Edema, No JVD, No Murmur, No Gallop, Normal Peripheral Pulses, Regular Rate/Rhythm Breast Exam: Deferred Gastrointestinal: No Organomegaly, Non Tender, No Pulsatile Mass, Normal Bowel Sounds, Soft Genitalia: Deferred Pelvic: Deferred Rectal: Deferred Extremities: No calf tenderness, Normal capillary refill, Pedal edema, Swelling (Right foot), Tender Musculoskeletal : Apperance: Normal Neurologic: Alert, block inspector II-XII nml as Tested, No Motor Deficits, Normal Affect, Normal Mood, No Sensory Deficits Cerebellar Function: Normal Reflexes: Normal Skin: Dry, Normal Color, Warm Lymphatic: No Adenopathy Was a procedure done? Was a procedure done?: No Differential Diagnosis EXT Differential Diagnosis: CHF, Gout X-Ray, Labs, Meds, VS Vital Signs Date Time Temp Pulse Resp B/P (MAP) Pulse Ox O2 Delivery O2 Flow Rate FiO2 04/27/25 19:16 98.0 87 16 169/104 98 98.0 Lab Test 11/6/25 19:54 Range/Units White Blood Count 5.0 4.4-10.8 10^3/uL Red Blood Count 4.74 4.0-5.20 10^6/uL Hemoglobin 10.6 L 12.2-16.2 g/dL Hematocrit 34.4 L 36.0-46.0 % Mean Corpuscular Volume 72.6 L 80.0-100.0 fL Mean Corpuscular Hemoglobin 22.3 L 28.0-32.0 pg Mean Corpuscular Hemoglobin Concent 30.8 L 32.0-36.0 g/dL Red Cell Distribution Width 20.7 H 11.8-14.3 % Platelet Count 171 140-450 10^3/uL Mean Platelet Volume 8.4 6.9-10.8 fL Neutrophils (%) (Auto) 69.5 37.0-80.0 % Lymphocytes (%) (Auto) 13.1 10.0-50.0 % Monocytes (%) (Auto) 7.9 0.0-12.0 % Eosinophils (%) (Auto) 8.7 H 0.0-7.0 % Basophils (%) (Auto) 0.8 0.0-2.0 % Neutrophils # (Auto) 3.5 1.6-8.6 10 ^3/uL Lymphocytes # (Auto) 0.7 0.4-5.4 10 ^3/uL Monocytes # (Auto) 0.4 0-1.3 10 ^3/uL Eosinophils # (Auto) 0.4 0-0.8 10 ^3/uL Basophils # (Auto) 0 0-0.2 10 ^3/uL Nucleated Red Blood Cells 0.1 % Sodium Level 139 136-145 mmol/L Potassium Level 3.8 3.5-5.1 mmol/L Chloride Level 104 98-107 mmol/L Carbon Dioxide Level 27 20-31 mmol/L Anion Gap 8 5-15 Blood Urea Nitrogen 27 H 9-23 mg/dL Creatinine 1.69 H 0.550-1.02 mg/dL Glomerular Filtration Rate Calc 35 >90 mL/min BUN/Creatinine Ratio 16.0 10.0-20.0 Serum Glucose 165 H 74-106 mg/dL Calcium Level 8.6 L 8.7-10.4 mg/dL B-Type Natriuretic Peptide 945.51 0-100 pg/mL CXR: IMPRESSION: Cardiomegaly with pulmonary edema and probable small bilateral pleural effusions. The patient's CAT scan of the right foot shows chronic osteomyelitis The patient's CBC shows anemia The creatinine is 1.69 The BNP is elevated at 945 The patient was given Lasix 40 mg IV push The patient is being started on vancomycin IV piggyback The patient is being admitted at this time Images Reviewed?: Images reviewed and evaluated by me Time of 1ST Reevaluation: 20:15 Reevaluation 1ST: Unchanged Patient Education/Counseling: Diagnosis, Treatment, Prognosis Family Education/Counseling: No Family Present Departure 1 Departure Time of Disposition: 21:56 Impression: Primary Impression: Acute on chronic diastolic heart failure Additional Impression: Foot osteomyelitis, right Qualified Codes: M86.9 - Osteomyelitis, unspecified Disposition: ADMITTED INPATIENT Admit to: [facility] Condition: Fair Critical Care Note Critical Care Time?: No Stability Stability form required: Yes Unstable for transfer: Telemetry monitoring (Telemetry monitoring required), ED Physician Assesment (Clinical assesment) Heart Score Heart Score: Heart Score Response (Comments) Value History Moderate Suspicious 1 EKG N/A 0 Age 45-64 1 Risk Factors 1 or 2 risk factors 1 Troponin N/A 0 Total 3 I personally scribed for SUE JUSTICE MD ([email or web address]) on 04/27/25 at 20:00. Electronically submitted by Amy Rosario ([email or web address]). I personally scribed for SUE JUSTICE MD ([email or web address]) on 04/27/25 at 21:01. Electronically submitted by Amy Rosario ([email or web address]). SUE JUSTICE MD Apr 27, 2025 20:00
[2025-04-27 20:11] LABS: Hemoglobin 10.6 g/dL (12.2-16.2); Nucleated Red Blood Cells % 0.1 %
[2025-04-27 20:12] LABS: Hematocrit 34.4 % (36.0-46.0); Mean Corpuscular Hemoglobin 22.3 pg (28.0-32.0); Mean Corpuscular Volume 72.6 fL (80.0-100.0)
[2025-04-27 20:15] LABS: Chloride 104 mmol/L (98-107); Potassium 3.8 mmol/L (3.5-5.1); Sodium 139 mmol/L (136-145)
[2025-04-27 20:16] LABS: Anion Gap 8 (5-15); Carbon Dioxide 27 mmol/L (20-31)
[2025-04-27 20:21] LABS: BUN/Creatinine Ratio 16.0 (10.0-20.0)
[2025-04-27 20:24] LABS: Blood Urea Nitrogen 27 mg/dL (9-23); Calcium 8.6 mg/dL (8.7-10.4); Glucose 165 mg/dL (74-106)
--- NOTE | 2025-04-27 20:33 | DVH ---
CHEST RADIOGRAPH Indication: leg swelliing Technique: Single frontal view of the chest was obtained COMPARISON: CXR1 on DOS: 03/27/22, CXRP on DOS: 03/26/22, CXR2 on DOS: 03/24/22, XR CHEST 1 VIEW on DOS: 02/27/22, XR CHEST 1 VIEW on DOS: 02/21/22 FINDINGS: Left chest wall defibrillator with lead tips unchanged. Cardiac silhouette is enlarged. Diffuse prominence of the pulmonary vasculature and interstitium with hazy ground-glass opacity throughout both lungs and probable small bilateral pleural effusions. IMPRESSION: Cardiomegaly with pulmonary edema and probable small bilateral pleural effusions.
--- NOTE | 2025-04-27 21:20 | DVH ---
EXAMINATION: CT CT R FOOT WO CONTRAST INDICATION: pain and infection COMPARISON: CT CT L FOOT WO CONTRAST on DOS: 09/25/24, XR ANKLE COMP RT on DOS: 01/01/23, XY R KNEE 3V XRAY on DOS: 10/23/22 TECHNIQUE: CT of the right foot was performed without contrast. Volume transverse images were obtained reconstructed in multiple planes using bone and soft tissue algorithms. CONTRAST: 100 cc Omnipaque 350. CTDIVOL: 24.93 mGy, DLP: 755.23 mGy-cm FINDINGS: Large area of ulceration along the posterior aspect of the calcaneus. The adjacent posterior calcaneus appears sclerotic. No obvious erosive changes. Diffuse soft tissue edema. No discrete rim enhancing fluid collections. IMPRESSION: Probable chronic osteomyelitis of the posterior calcaneus which appears sclerotic with adjacent large ulcer. No abscess.
[2025-04-28] MEDS: FUROSEMIDE 40 MG/4 ML VIAL IV ONE (00:33)
[2025-04-28] MEDS: FUROSEMIDE 20 MG TAB PO ONE (00:33)
== END 2025-04-28 01:03 | disposition left against medical advice (07) ==
LOC: ER 19:10
DX: I11.0 Hypertensive heart disease with heart failure (principal); I50.33 Acute on chronic diastolic (congestive) heart failure; E11.69 Type 2 diabetes mellitus with other specified complication; M86.671 Other chronic osteomyelitis, right ankle and foot; E78.5 Hyperlipidemia, unspecified; D64.9 Anemia, unspecified; I21.9 Acute myocardial infarction, unspecified; I25.2 Old myocardial infarction; I63.9 Cerebral infarction, unspecified; J44.9 Chronic obstructive pulmonary disease, unspecified; Z79.82 Long term (current) use of aspirin; Z79.84 Long term (current) use of oral hypoglycemic drugs; Z79.891 Long term (current) use of opiate analgesic; Z79.899 Other long term (current) drug therapy; Z87.442 Personal history of urinary calculi; Z91.048 Other nonmedicinal substance allergy status; Z95.0 Presence of cardiac pacemaker; Z98.51 Tubal ligation status; Z91.040 Latex allergy status; Z98.890 Other specified postprocedural states
CPT/HCPCS: 36415; 71045; 73700; 80048; 83880; 85025